=== PATIENT | male | born 1995 | race Two or more races ===

== ENCOUNTER 2023-05-19 14:03 | Outpatient (REF) | payer OTHER, SELFPAY ==
[2023-05-19 18:46] LABS: CT PCR NOT DETECTED (Not Detect.); NG PCR NOT DETECTED (Not Detect.)
== END 2023-05-19 14:04 | disposition home or self-care (01) ==
LOC: HO.LNP 14:03
PROVIDERS: Visit Provider Urology
DX: N50.812 Left testicular pain (principal); N50.811 Right testicular pain; M54.50 Low back pain, unspecified; N45.1 Epididymitis; N39.8 Other specified disorders of urinary system; Z79.899 Other long term (current) drug therapy
CPT/HCPCS: 0353U; 51798; 81003

== ENCOUNTER 2023-05-19 14:03 | Outpatient (AMB) | payer OTHER, SELFPAY ==
--- NOTE | 2023-05-19 14:04 | A.OFFVIS_ITS ---
Intake Intake Visit Reasons: Epididymitis Intake Note: NEW Patient presents today to established treatment for Epididymitis: Meds- None Allergies to Antibiotic- No Known Allergies Blood Thinner- None Biomedical Equipment Technician Required: No Accompanied by: Self / Same As Patient Allergies No Known Allergies Allergy (Verified 05/19/23 14:19) Medication List - Last Reconciled 05/19/23 by Rosario Mensah MD acetaminophen mg PO doxycycline hyclate 100 mg PO BID 14 days naproxen 375 mg PO BID HPI HPI Comments History of Present Illness Details Chris is a 28-year-old male who presents today to the office to establish as a new patient for an evaluation of epididymitis. 05/19/2023? He presents today for an evaluation of epididymitis. He states he ishaving pain in the both testicles, and low back pain. He denies any hematuria. He feels like he has the urge to urinate. He is sexually active. The Patient was seen on 03/28 by [facility] for testicular and back pain. He was sent home on cyclobenzaprine 10 mg, and Nortriptyline 50 mg, and instructed to use Tylenol prn and was referred to the urology office for further evaluation. In review of his chart, it was noted that he was seen in ER in 2019, and had a CAT scan of the spine noting- L-5 to S-1 disc disease. US of the scrotum results from 11/20/2022 noted that both the testicles are normal, with normal flow, and some diffused increase in vascularity noted in both the testicles consistent with bilateral epididymitis. Evaluation today?UA? bladder scan PVR: 55 mL. Examination of the testicles: tenderness on palpation of both the testicles, and no swelling noted. Plan: Doxycycline 10 mg BID for 14 days. Naproxen 375 BID. No heavy lifting for 7 days over 50 kg. Follow-up in 6-8 weeks. [facility] Medical History (Updated 05/19/23 @ 14:51 by Rosario Mensah MD) Hepatic cyst Asthma Acne Abdominal pain Surgical History (Updated 05/19/23 @ 14:26 by TRISTIN Simmons) No pertinent past surgical history Family History (Updated 05/19/23 @ 14:26 by TRISTIN Simmons) Father Diabetes Mother HTN (hypertension) Social History (Updated 05/19/23 @ 14:26 by TRISTIN Simmons) Alcohol intake: current Alcohol intake frequency: does not drink Patient Tobacco Use Status: Never used Tobacco Review of Systems Const All systems reviewed & are unremarkable except as noted in HPI and below Reports no additional complaints Eyes Reports no additional complaints ENT Reports no additional complaints Card Denies dyspnea Resp Denies cough and Denies dyspnea GI Reports no additional complaints Musc Reports no additional complaints Skin/Breast Denies rash and Denies unusual bruising Neuro Reports no additional complaints Psych Reports no additional complaints Endo Reports no additional complaints Syd/Lymph Reports no additional complaints Aller/Immun Reports no additional complaints Physical Exam Const General: healthy appearing, no acute distress and well developed Orientation/consciousness: patient oriented x3 HEENT Head: Yes normocephalic and Yes atraumatic Eyes Conjunctivae: conjunctivae normal Neck Neck: Yes normal visual inspection Chest Chest palpation & inspection: normal inspection of the chest Resp Effort & Inspection: normal respiratory effort Cardio Rate: regular rate GI Inspection: Yes normal to inspection Palpation (GI): Soft to palpation Other: tenderness on palpation of both the testicles, and no swelling noted. Penis: normal penis Scrotum: scrotum normal Skin General skin exam: no rashes or lesions noted Neuro General: patient oriented x3 Extrem General: No pedal edema Psych Appearance: grossly normal Affect: normal affect Office Procedures Post Void Residual Post Residual Void Post Void Residual (PVR): 55 [id number] Void Residual by ultrasound Results AMB Urinalysis, Automated UA Leukoctes 0 Debbie/uL Last Edit by TRISTIN Simmons on 05/19/23 14:30 UA Nitrite Negative Last Edit by TRISTIN Simmons on 05/19/23 14:30 UA Urobilinogen 0 mg/dL Last Edit by TRISTIN Simmons on 05/19/23 14:30 UA Protein 0.2 mg/dL Last Edit by TRISTIN Simmons on 05/19/23 14:30 UA pH 0 Last Edit by JOSE E SimmonsA on 05/19/23 14:30 UA Blood 6.0 Juan Miguel/uL Last Edit by Gus Lizarraga RMA on 05/19/23 14:30 UA Specific [place] 1.030 Last Edit by Gus Lizarraga RMA on 05/19/23 14: 30 UA Ketone Negative Last Edit by Gus Lizarraga RMA on 05/19/23 14:30 UA Bilirubin 0 mg/dL Last Edit by Gus Lizarraga RMA on 05/19/23 14:30 UA Glucose 0 mg/dL Last Edit by Gus Lizarraga A on 05/19/23 14:30 Results Reviewed Results Reviewed: Laboratory Last Values Urine pH (Auto) 0 05/19/23 14:29 Specific [place] (Auto) 1.030 05/19/23 14:29 Urine Protein (Auto) 0.2 mg/dL 05/19/23 14:29 Glucose (UA)(Auto) 0 mg/dL 05/19/23 14:29 Urine Ketones (Auto) Negative 05/19/23 14:29 Urine Blood (Auto) 6.0 Juan Miguel/uL 05/19/23 14:29 Urine Nitrite (Auto) Negative 05/19/23 14:29 Urine Bilirubin (Auto) 0 mg/dL 05/19/23 14:29 Urine Urobilinogen (Auto) 0 mg/dL 05/19/23 14:29 Leukocyte Esterase (Auto) 0 Debbie/uL 05/19/23 14:29 Assessment & Plan Assessment & Plan (1) Epididymitis: Code(s): N45.1 - Epididymitis (2) Testicular pain: Code(s): N50.819 - Testicular pain, unspecified Plan Doxycycline? 10 mg BID for 14 days. Naproxen? 375 BID. No heavy lifting for 7 days over 50 kg. Follow-up in 6-8 weeks.? Orders: Orders CT NG by PCR 05/19/23 N45.1 - Epididymitis, N50.819 - Testicular pain, unspecified AMB Urinalysis Automated 05/19/23 Z13.9 - Encounter for screening, unspecified AMB Post Void Residual by ultrasound 05/19/23 N39.8 - Other specified disorders of urinary system Medications: New doxycycline hyclate 100 mg PO BID 28 tabs 0RF 14 days naproxen 375 mg PO BID 20 tabs 0RF pain Patient Instructions: The patient had an opportunity to ask questions regarding treatment plan. All questions were answered. Imaging, Laboratory studies and physical exam results were discussed and reviewed in detail. No major barriers to understanding were identified. The patient expressed understanding and agreement with the above treatment plan.? ? ? The patient is aware they should contact our office by phone for worsening of their current condition or the appearance of new symptoms. Compliance is encouraged with any medications and followup testing that is ordered.? ? ? It is a privilege to be allowed the opportunity to participate in the urologic care of your patient. If you have any questions or concerns regarding treatment for the above conditions please do not hesitate to contact me. The office telephone contact is [phone].? ? ? This note is constructed in part using voice recognition software. While every effort has been made to ensure accuracy bomb squad officer errors may have been included.? ? ? Yours sincerely,? ? ? Rosario Mensah MD? Coding Level of Care Code New Pt Level 3 (80020) Diagnoses Epididymitis N45.1 Testicular pain N50.819 CPT Codes Post Residual Void - PVR CPT Code: 74180-[id number] Void Residual by ultrasound ([id number])
== END 2023-05-19 15:03 | disposition home or self-care (01) ==
PROVIDERS: Visit Provider Urology
DX: N45.1 Epididymitis (principal); N50.819 Testicular pain, unspecified
CPT/HCPCS: 99203

== ENCOUNTER 2023-06-14 11:40 | Outpatient (REF) | payer OTHER, SELFPAY ==
--- NOTE | ~2023-06-14 | US_ITS ---
EXAMINATION: US SCROTUM CLINICAL INFORMATION: Testicular pain. COMPARISON: None available. TECHNIQUE: A sonogram of the scrotum was performed assessing macias-scale appearance and color Doppler flow. Spectral Doppler analysis of the arterial and venous flow were performed in the testes bilaterally. FINDINGS: RIGHT: Right testicle measures 5.3 x 2.0 x 3.5 cm, volume 19.5 mL. No focal testicular parenchymal lesions are visualized. Spectral Doppler analysis of the arterial and venous flow is normal in the right testis. Right epididymal head is normal in size. No right hydrocele or varicocele is seen. Right epididymal Doppler flow is normal. LEFT: Left testicle measures 4.7 x 2.2 x 3.3 cm, volume 17.8 mL. No focal testicular parenchymal lesions are visualized. Spectral Doppler analysis of the arterial and venous flow is normal in the left testis. Left epididymal head is normal in size. No left hydrocele. A tiny left varicocele is present. Left epididymal Doppler flow is normal. US/US scrotum IMPRESSION: A cause for the patient's testicular pain has not been found. A tiny left varicocele is present.
== END 2023-06-14 11:41 | disposition home or self-care (01) ==
LOC: HO.HMGCX 11:40
PROVIDERS: Visit Provider Urology
DX: N50.819 Testicular pain, unspecified (principal)
CPT/HCPCS: 76870

== ENCOUNTER 2023-10-09 15:45 | Outpatient (AMB) | payer OTHER, SELFPAY ==
--- NOTE | 2023-10-09 15:48 | A.OFFVIS_ITS ---
Intake Intake Visit Reasons: Having urine problems and lump on my groin Intake Note: Patient presents today for a follow-up on Epididymitis, having urinary problems and a groin pain : Meds- None Allergies to Antibiotic- No Known Allergies Blood Thinner- None Area Captain Required: No Accompanied by: Self / Same As Patient Allergies No Known Allergies Allergy (Verified 05/19/23 14:19) Medication List - Last Reconciled 10/09/23 by Rosario Mensah MD acetaminophen mg PO HPI HPI Comments History of Present Illness Details Chris is a 28-year-old male who presents today with urinary concerns, he was initially seen on 05/19/23 for an evaluation of epididymitis and placed on doxycycline for 14 days. He states he no longer is working at the job where he had to lift. I have discussed with him that urinalysis is normal. Reassured the patient no evidence for infection. I have discussed avoiding dietary bladder irritants. 05/19/2023? He presents today for an evaluation of epididymitis. He states he ishaving pain in the both testicles, and low back pain. He denies any hematuria. He feels like he has the urge to urinate. He is sexually active. The Patient was seen on 04/06/2023 by [facility] for testicular and back pain. He was sent home on cyclobenzaprine 10 mg, and Nortriptyline 50 mg, and in structed to use Tylenol prn and was referred to the urology office for further evaluation. In review of his chart, it was noted that he was seen in ER in 2019, and had a CAT scan of the spine noting- L-5 to S-1 disc disease. US of the scrotum results from 11/20/2022 noted that both the testicles are normal, with normal flow, and some diffused increase in vascularity noted in both the testicles consistent with bilateral epididymitis. Evaluation today?UA? bladder scan PVR: 55 mL. Examination of the testicles: tenderness on palpation of both the testicles, and no swelling noted. Plan--Doxycycline 10 mg BID for 14 days. Naproxen 375 BID. No heavy lifting for 7 days over 50 kg. Follow-up in 6-8 weeks. [facility] Medical History (Updated 11/28/23 @ 09:12 by Rosario Mensah MD) Hepatic cyst Asthma Acne Abdominal pain Surgical History (Updated 05/19/23 @ 14:26 by TRISTIN Simmons) No pertinent past surgical history Family History (Updated 05/19/23 @ 14:26 by TRISTIN Simmons) Father Diabetes Mother HTN (hypertension) Social History (Updated 05/19/23 @ 14:26 by TRISTIN Simmons) Alcohol intake: current Alcohol intake frequency: does not drink Patient Tobacco Use Status: Never used Tobacco Review of Systems Const All systems reviewed & are unremarkable except as noted in HPI and below Reports no additional complaints Eyes Reports no additional complaints ENT Reports no additional complaints Card Reports no additional complaints Resp Reports no additional complaints GI Reports no additional complaints Reports as per HPI Musc Reports no additional complaints Skin/Breast Reports system reviewed and no additional complaints, except as documented Neuro Reports no additional complaints Psych Reports no additional complaints Endo Reports no additional complaints Syd/Lymph Reports no additional complaints Aller/Immun Reports no additional complaints Results AMB Urinalysis, Automated UA Leukoctes 0 Debbie/uL Last Edit by TRISTIN Simmons on 10/09/23 16:10 UA Nitrite Negative Last Edit by TRISTIN Simmons on 10/09/23 16:10 UA Urobilinogen 0.2 mg/dL Last Edit by TRISTIN Simmons on 10/09/23 16:1 0 UA Protein 15 mg/dL Last Edit by TRISTIN Simmons on 10/09/23 16:10 UA pH 6.0 Last Edit by TRISTIN Simmons on 10/09/23 16:10 UA Blood 0 Juan Miguel/uL Last Edit by TRISTIN Simmons on 10/09/23 16:10 UA Specific [place] 1.020 Last Edit by TRISTIN Simmons on 10/09/23 16: 10 UA Ketone Negative Last Edit by TRISTIN Simmons on 10/09/23 16:10 UA Bilirubin 1 mg/dL Last Edit by TRISTIN Simmons on 10/09/23 16:10 UA Glucose 0 mg/dL Last Edit by TRISTIN Simmons on 10/09/23 16:10 Results Reviewed Results Reviewed: Laboratory Last Values Urine pH (Auto) 6.0 10/09/23 15:54 Specific [place] (Auto) 1.020 10/09/23 15:54 Urine Protein (Auto) 15 mg/dL 10/09/23 15:54 Glucose (UA)(Auto) 0 mg/dL 10/09/23 15:54 Urine Ketones (Auto) Negative 10/09/23 15:54 Urine Blood (Auto) 0 Juan Miguel/uL 10/09/23 15:54 Urine Nitrite (Auto) Negative 10/09/23 15:54 Urine Bilirubin (Auto) 1 mg/dL 10/09/23 15:54 Urine Urobilinogen (Auto) 0.2 mg/dL 10/09/23 15:54 Leukocyte Esterase (Auto) 0 Debbie/uL 10/09/23 15:54 Assessment & Plan Assessment & Plan (1) Chronic pain in testicle: Code(s): N50.819 - Testicular pain, unspecified; G89.29 - Other chronic pain Plan tylenol or NSAIDS prn Orders: Orders AMB Urinalysis Automated 10/09/23 Z13.9 - Encounter for screening, unspecified Coding Level of Care Code Est Pt Level 3 (96603) Diagnoses Chronic pain in testicle N50.819; G89.29
== END 2023-10-09 16:34 | disposition home or self-care (01) ==
PROVIDERS: Visit Provider Urology
DX: N50.819 Testicular pain, unspecified (principal); G89.29 Other chronic pain
CPT/HCPCS: 99213

== ENCOUNTER → 2023-10-09 15:45 | Outpatient (BNVA) | payer OTHER, SELFPAY | PROVIDERS: Visit Provider Urology | DX: N50.819 Testicular pain, unspecified (principal); G89.29 Other chronic pain | CPT/HCPCS: 81003; 99212 ==

== ENCOUNTER 2024-06-05 13:21 | Outpatient (AMB) | payer OTHER, SELFPAY ==
--- NOTE | 2024-06-05 13:17 | A.OFFVIS_ITS ---
Intake Visit Reasons: follow up Intake Note: Patient is present for F/U Urology Medication:NONE Antibiotic Allergy:NONE Blood Thinner:NONE [employer] Required: No Allergies No Known Allergies Allergy (Verified 06/05/24 13:17) Medication List - Last Reconciled 06/05/24 by Rosario Mensah MD acetaminophen mg PO clotrimazole-betamethasone 1-0.05 % 1 appl topical BID 2 weeks fluconazole 150 mg PO ONCE HPI Comments Details: 06/05/2024--Kalyani has been seen due to chronic testicular pain. He currently denies testicular pain, but states that he has noticed some itching around the top of the penis. I will send an antifungal cream as well as Diflucan. The pat ient will call if symptoms do not improve. Review of chart: 10/09/23--Chris is a 28-year-old male who presents today with urinary concerns, he was initially seen on 05/19/23 for an evaluation of epididymitis and placed on doxycycline for 14 days. He states he no longer is working at the job where he had to lift. I have discussed with him that urinalysis is normal. Reassured the patient no evidence for infection. I have discussed avoiding dietary bladder irritants. 05/19/2023? He presents today for an evaluation of epididymitis. He states he ishaving pain in the both testicles, and low back pain. He denies any hematuria. He feels like he has the urge to urinate. He is sexually active. The Patient was seen on 04/06/2023 by [facility] for testicular and back pain. He was sent home on cyclobenzaprine 10 mg, and Nortriptyline 50 mg, and instructed to use Tylenol prn and was referred to the urology office for further evaluation. In review of his chart, it was noted that he was seen in ER in 2019, and had a CAT scan of the spine noting- L-5 to S-1 disc disease. US of the scrotum results from 11/20/2022 noted that both the testicles are normal, with normal flow, and some diffused increase in vascularity noted in both the testicles consistent with bilateral epididymitis. Evaluation today?UA? bladder scan PVR: 55 mL. Examination of the testicles: tenderness on palpation of both the testicles, and no swelling noted. Plan--Doxycycline 10 mg BID for 14 days. Naproxen 375 BID. No heavy lifting for 7 days over 50 kg. Follow-up in 6-8 weeks. [facility] Medical History (Updated 07/01/24 @ 11:31 by Rosario Mensah MD) Hepatic cyst Asthma Acne Abdominal pain Surgical History (Updated 05/19/23 @ 14:26 by TRISTIN Simmons) No pertinent past surgical history Family History (Updated 05/19/23 @ 14:26 by TRISTIN Simmons) Father Diabetes Mother HTN (hypertension) Social History (Updated 05/19/23 @ 14:26 by TRISTIN Simmons) Alcohol intake: current Alcohol intake frequency: does not drink Patient Tobacco Use Status: Never used Tobacco Telehealth Telehealth Telehealth Platform: Kynded Location of provider rendering services: practice address Location of patient: address on file Patient Identification confirmed using: Name, : Yes Telehealth method: voice only Patient verbally consented to treatment: Yes Patient verbally consented to billing insurance company: Yes Patient informed of any privacy concerns related to visit: Yes Minutes spent on Phone/Video with Pt.: 18 Assessment & Plan Assessment & Plan (1) Chronic pain in testicle: Code(s): N50.819 - Testicular pain, unspecified; G89.29 - Other chronic pain Category: Medical (2) Balanitis: Code(s): N48.1 - Balanitis Category: Medical Plan lotrisone cream Medications: New fluconazole 150 mg PO ONCE 1 tab 0RF clotrimazole-betamethasone 1-0.05 % 1 appl topical BID 45 grams 1RF 2 weeks Patient Instructions: The patient had an opportunity to ask questions regarding treatment plan. The patient expressed understanding and agreement with the above treatment plan. The patient is aware they should contact our office by phone for worsening of their current condition or the appearance of new symptoms. Compliance is encouraged with any medications and followup testing that is ordered. It is a privilege to be allowed the opportunity to participate in the urologic care of your patient. If you have any questions or concerns regarding treatment for the above conditions please do not hesitate to contact me. The office telephone contact is [phone]. This note is constructed in part using voice recognition software. While every effort has been made to ensure accuracy high school home economics teacher errors may have been included. Yours sincerely, Rosario Mensah MD Coding Level of Care Code Tele New Pt Level 3 (52455) Diagnoses Chronic pain in testicle N50.819; G89.29 Balanitis N48.1
--- OUTSIDE RECORDS SUMMARY | 2024-06-05 13:23 | XMS_ITS | Continuity of Care Document ---
Author Organization [facility] ter Address [address] [place] [id number]- Care Team Providers Care Supreme Court Judge Name Role Phone Zuri Velázquez MD Primary Care Physician Encounter [facility] Date(s): 05/02/23 - 06/02/[address] [id number] Attending Physician: Kanu WONG, Celina Choi Admitting Physician: Kanu WONG, Celina Choi Referring Physician: Kanu WONG, Celina Choi Allergies, Adverse Reactions, Alerts No Known Allergies Immunizations Given and Recorded Vaccine Date Status Refusal Reason influenza virus vaccine, inactivated 06/08/20 Give n influenza virus vaccine, inactivated 11/01/19 Give n influenza virus vaccine, inactivated 07/13/17 Give n influenza virus vaccine, inactivated 09/24/13 Give n tetanus/diphtheria/pertussis, acel(Tdap) 02/07/18 Given influenza virus vaccine, live 1 07/27/12 Given 1Admin Note: VIS DATED 02/27/2012 GIVEN. Medications capsaicin 0.025% topical cream 1 application, Topically, 2 times a day, # 45 Gm, 5 Refills, Maintenance, 04/10/23 16:04:00 EDT, Cream, [facility]/pharmacy #[id number], Partial fill upon patient request if the prescription is for a schedule II opioid drug., 1 application Topically 2 times a day,... Start Date: 04/10/23 Status: Ordered nortriptyline 50 mg oral capsule 50 mg, 1, capsule, By Mouth, Daily at bedtime, dose increased, take daily for migraine prevention, # 90 capsule, Refills 1, Tot. Refills 1, Maintenance, 04/04/23 15:00:00 EDT, Route to Pharmacy Electronically, [facility]/pharmacy #[id number], Partial fill upon pat... Start Date: 04/04/23 Status: Ordered Readi-Cat 2 oral suspension 450 mL = 9 Gm, By Mouth, 2 times a day, Please dispense two 450 mL bottles for a total dose that equals 900 mLs. Drink first bottle [address] and then drink second bottle [address] scan,# 2 each, 0 Refills, Maintenance, 01/04/23 13:08:00... Start Date: 01/04/23 Status: Ordered Problem List Condition Confirmation Course Effective Dates Status Health St [facility] Informant Abdominal pain Confirmed Active Acne Confirmed Active Asthma Confirmed Active Epididymitis Confirmed Active Intermittent Explosive Disorder 1 Confirmed Active Irritable bowel Confirmed Active Hepatic cyst, right lobe 2 Confirmed 01/27/14 Active Migraine Confirmed Active Obese class I Confirmed Active 1[facility] 2Measures 2.4 x 1.9 x 1.7 cm and contains peripheral calcification along its posterior medial aspect Social History Social History Type Response Smoking Status Former smoker, quit more than 30 days ago entered on: 09/21/18 Sex Patient Care team information Care Team Personnel Name: Zuri Velázquez MD Position: [facility] Resident Member Role: PCP Address: Address: [address] [place] [address] [place] [address]- Care Team Related Persons Name: NADER CHAVEZ Address: [address] [place] [address] Name: DIONTE HARRELL Address: [address] [place] [address] Name: KRISHNA PA Address: home [address] [place] [address]
--- OUTSIDE RECORDS SUMMARY | 2024-06-05 13:23 | XMS_ITS | Continuity of Care Document ---
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 Role Phone Zuri Velázquez MD Primary Care Physician [facility]counter [facility] Date(s): 10/24/22 - 11/23/22 [facility] [address] [place] [id number] Allergies, Adverse Reactions, Alerts No Known Allergies Immunizations Given and Recorded Vaccine Date Status Refusal Reason influenza virus vaccine, inactivated 06/08/20 Give n influenza virus vaccine, inactivated 11/01/19 Give n influenza virus vaccine, inactivated 07/13/17 Give n influenza virus vaccine, inactivated 09/24/13 Give n tetanus/diphtheria/pertussis, acel(Tdap) 02/07/18 Given influenza virus vaccine, live 1 07/27/12 Given 1Admin Note: VIS DATED 02/27/2012 GIVEN. Medications carvedilol 6.25 mg oral tablet 6.25 mg, 1, tablet, By Mouth, 2 times a day, # 60 tablet, Refills 1, Tot. Refills 1, Maintenance, 10/17/22 9:48:00 EST, Route to Pharmacy Electronically, [facility]/pharmacy #[id number], Partial fill upon patientrequest if the prescription is for a schedule II op... Start Date: 10/17/22 Status: Ordered ceftriaxone 500 mg injectable powder for injection = 500 mg, Intramuscular, Once, # 1 each, 0 Refills, Soft Stop, 11/01/22 6:03:00 EST, Partial fill upon patient request if the prescription is for a schedule II opioid drug. Start Date: 11/01/22 Status: Ordered clindamycin 1% topical solution 1 application, Topically, 2 times a day, # 60 mL, 1 Refills, Maintenance, 10/17/22 9:33:00 EST, Solution, [facility]/pharmacy #[id number], Partial fill upon patient request if the prescription is for a schedule II opioid drug., 1 application Topically 2 times a da... Start Date: 10/17/22 Stop Date: 11/14/22 Status: Ordered famotidine 20 mg oral tablet 20 mg, 1, tablet, By Mouth, 2 times a day, # 28 tablet, Refills 0, Tot. Refills 0, Maintenance, 09/10/21 7:39:00 EST, Route to Pharmacy Electronically, [facility]/pharmacy #[id number], Partial fill upon patient request if the prescription is for a schedule II opio... Start Date: 09/10/21 Stop Date: 09/24/21 Status: Ordered nortriptyline 10 mg oral capsule 10 mg, 1, capsule, By Mouth, Daily at bedtime, # 30 capsule, Refills 1, Tot. Refills 1, Maintenance, 10/17/22 9:25:00 EST, Route to Pharmacy Electronically, [facility]/pharmacy #[id number], Partial fill upon patient request if the prescription is for a schedule II... Start Date: 10/17/22 Status: Ordered Wedge Pillow Wedge Pillow, See Instructions, # 1 each, Refills 0, Tot. Refills 0, Maintenance, Dx: Sleep Disturbance, at risk of CIERRA, 10/17/22 9:25:00 EST, Supply Start Date: 10/17/22 Status: Ordered Problem List Condition Confirmation Course Effective Dates Status Health St atus Informant Abdominal pain Confirmed Active Acne Confirmed Active Asthma Confirmed Active Intermittent Explosive Disorder 1 Confirmed Active Irritable bowel Confirmed Active Hepatic cyst, right lobe 2 Confirmed 01/27/14 Active Obese class I Confirmed Active 1[facility] 2Measures 2.4 x 1.9 x 1.7 cm and contains peripheral calcification along its posterior medial aspect Social History Social History Type Response Smoking Status Former smoker, quit more than 30 days ago entered on: 09/21/18 Sex Patient Care team information Care Team Personnel Name: Zuri Velázquez MD Position: S Resident Member Role: PCP Address: Address: [address] [place] [address] [place] [address]- Care Team Related Persons Name: NADER CHAVEZ Address: home [address] [place] [address] Name: DIONTE HARRELL Address: home [address] [place] [address] Name: KRISHNA PA Address: home [address] [place] [address]
--- OUTSIDE RECORDS SUMMARY | 2024-06-05 13:23 | XMS_ITS | Continuity of Care Document ---
Author Organization [facility] Address [address] [place] [address]- Care Team Providers Care Casting Director Name Role Phone Zuri Velázquez MD Primary Care Physician [phone] Encounter [facility] [place] Date(s): 06/21/23 - 07/26/[address] [address] Attending Physician: Kadie Vasquez NP Admitting Physician: Kadie Vasquez NP Referring Physician: Kadie Vasquez NP Allergies, Adverse Reactions, Alerts No Known Allergies Immunizations Given and Recorded Vaccine Date Status Refusal Reason influenza virus vaccine, inactivated 06/08/20 Give n influenza virus vaccine, inactivated 11/01/19 Give n influenza virus vaccine, inactivated 07/13/17 Give n influenza virus vaccine, inactivated 09/24/13 Give n tetanus/diphtheria/pertussis, acel(Tdap) 02/07/18 Given influenza virus vaccine, live 1 07/27/12 Given 1Admin Note: VIS DATED 02/27/2012 GIVEN. Medications azithromycin 500 mg oral tablet 1 tablet = 500 mg, By Mouth, Daily, # 3 tablet, 0 Refills, Acute 08/20/23 8:59:00 EST, 07/21/23 15:51:00 EST, Tablet, [facility]/pharmacy #[id number], Partial fill upon patient request if the prescription is for a schedule II opioid drug., 173, cm, 07/21/23 14:13:... Start Date: 07/21/23 Stop Date: 08/20/23 Status: Ordered capsaicin 0.025% topical cream 1 application, Topically, 2 times a day, # 45 Gm, 5 Refills, Maintenance, 04/10/23 16:04:00 EDT, Cream, [id number], Partial fill upon patient request if the prescription is for a schedule II opioid drug., 1 application Topically 2 times a day,... Start Date: 04/10/23 Status: Ordered ipratropium nasal 21 mcg/inh spray See Instructions, PRN Nasal Congestion, 1 spray each nostril BID, # 1 each, 4 Refills, Maintenance,06/06/23 13:45:00 EDT, [facility]/pharmacy #[id number], Partial fill upon patient request if the prescription isfor a schedule II opioid drug., 1 spray each nostri... Start Date: 06/06/23 Status: Ordered meloxicam 7.5 mg oral tablet 1 tablet = 7.5 mg, By Mouth, Daily, prn pain, take with food, # 30 tablet, 1 Refills, Maintenance, 06/13/23 16:51:00 EDT, Tablet, [facility]/pharmacy #[id number], Partial fill upon patient request if the prescription is for a schedule II opioid drug., 173, cm, 10/... Start Date: 06/13/23 Status: Ordered nortriptyline 50 mg oral capsule 50 mg, 1, capsule, By Mouth, Daily at bedtime, dose increased, take daily for migraine prevention, # 90 capsule, Refills 1, Tot. Refills 1, Maintenance, 04/04/23 15:00:00 EDT, Route to Pharmacy Electronically, [facility]/pharmacy #[id number], Partial fill upon pat... Start Date: 04/04/23 Status: Ordered Sequoyah 0.65% nasal spray 2 sprays, Nares, Both, 4 times a day, # 1 each, 5 Refills, Maintenance, 06/13/23 16:48:00 EDT, [facility]/pharmacy #[id number], Partial fill upon patient request if the prescription is for a schedule II opioid drug., 2 sprays Nares, Both 4 times a day, 173, cm, 10... Start Date: 06/13/23 Status: Ordered pantoprazole 40 mg oral delayed release tablet 1 tablet = 40 mg, By Mouth, Daily, Take 30-60 mins before breakfast, # 30 tablet, 2 Refills, Maintenance, 07/21/23 15:48:00 EST, EC Tablet, 173, cm, 07/21/23 14:13:00 EST, Height Start Date: 07/21/23 Status: Ordered propranolol 60 mg oral capsule, extended release 60 mg, 1, capsule, By Mouth, Daily, # 30 capsule, Refills 5, Tot. Refills 5, Maintenance, 06/13/23 16:46:00 EDT, Route to Pharmacy Electronically, [facility]/pharmacy #[id number], Partial fill upon patient request if the prescription is for a schedule II opioid Start Date: 06/13/23 Status: Ordered Readi-Cat 2 oral suspension 450 mL = 9 Gm, By Mouth, 2 times a day, Please dispense two 450 mL bottles for a total dose that equals 900 mLs. Drink first bottle [address] and then drink second bottle [address] scan,# 2 each, 0 Refills, Maintenance, 01/04/23 13:08:00... Start Date: 01/04/23 Status: Ordered Symbicort 80mcg/4.5mcg Inhaler 2, puffs, Inhalation, 2 times a day, # 10.2 Gm, Refills 2, Tot. Refills 2, Maintenance, 07/21/23 15:49:00 EST, Aerosol, Route to Pharmacy Electronically, [id number], [facility]/pharmacy #[id number], 173, cm, 07/21/23 14:13:00 EST, Height Start Date: 07/21/23 Status: Ordered Problem List Condition Confirmation Course Effective Dates Status Health St atus Informant Abdominal pain Confirmed Active Acne Confirmed Active Asthma Confirmed Active Epididymitis Confirmed Active HTN (hypertension) Confirmed Active Intermittent Explosive Disorder 1 Confirmed [...] S Resident Member Role: PCP Address: Address: [address] [place] [address] [place] [address]- Care Team Related Persons Name: NADER CHAVEZ Address: home [address] [place] [address] Name: DIONTE HARRELL Address: home [address] [place] [address] Name: KRISHNA PA Address: home [address] [place] [address]
--- OUTSIDE RECORDS SUMMARY | 2024-06-05 13:23 | XMS_ITS | Continuity of Care Document ---
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 Role Phone Sanjana KAHN, Natalee Rolon Primary Care Physic brian [facility]counter [facility] Date(s): 05/17/21 - 06/16/21 [facility] [address] [place] [id number]- Allergies, Adverse Reactions, Alerts Substance Reaction Severity Status NKA Active Immunizations Given and Recorded Vaccine Date Status Refusal Reason influenza virus vaccine, inactivated 06/08/20 Give n influenza virus vaccine, inactivated 11/01/19 Give n influenza virus vaccine, inactivated 07/13/17 Give n influenza virus vaccine, inactivated 09/24/13 Give n tetanus/diphtheria/pertussis, acel(Tdap) 02/07/18 Given influenza virus vaccine, live 1 07/27/12 Given 1Admin Note: VIS DATED 02/27/2012 GIVEN. Medications albuterol CFC free 90 mcg/inh inhalation aerosol 2, puffs, Inhalation, Every 4 hours, PRN, # 1 each, Refills 0, Tot. Refills 0, Maintenance, 06/20/19 12:58:17 EDT, Aerosol, Route to Pharmacy Electronically, [id number], [facility]/pharmacy #[id number] Start Date: 06/20/19 Stop Date: 06/27/19 Status: Ordered amLODIPine 5 mg oral tablet 5 mg, 1, tablet, By Mouth, Daily, # 30 tablet, Refills 3, Tot. Refills 3, Maintenance, 07/16/20 13:50:00 EST, Route to Pharmacy Electronically, [facility]/pharmacy #[id number], Partial fill upon patient request, 173, cm, 06/08/20 10:54:00 EDT, Height, 97, kg, 08... Start Date: 07/16/20 Status: Ordered Blood Pressure Monitor Blood Pressure Monitor, See Instructions, # 1 each, Refills 0, Tot. Refills 0, Maintenance, Blood Pressure Monitor Check blood pressure once a day at least one hour after taking medications [id number] PO TID Dx: I15.9 Duration: Lifetime, 11/11... Start Date: 11/11/20 Status: Ordered Colace sodium 100 mg oral capsule 100 mg, 1, capsule, By Mouth, 2 times a day, PRN, # 180 capsule, Refills 0, Tot. Refills 0, Maintenance, for constipation, 07/16/20 15:56:00 EST, Route to Pharmacy Electronically, [facility]/pharmacy #[id number],Partial fill upon patient request, 173, cm, ... Start Date: 07/16/20 Status: Ordered dicyclomine 10 mg oral capsule 1 capsule = 10 mg, By Mouth, 4 times a day, # 56 capsule, 1 Refills, Maintenance, 11/03/20 13:15:00EST, Capsule, [facility]/pharmacy #[id number], Partial fill upon patient request, 173, cm, 11/03/20 12:57:00 EST, Height, 97, kg, 03/29/20 18:07:00 EDT, Dry Weight Start Date: 11/03/20 Stop Date: 12/01/20 Status: Ordered famotidine 20 mg oral tablet 20 mg, 1, tablet, By Mouth, Daily, # 90 tablet, Refills 11, Tot. Refills 11, Maintenance, 10/28/20 14:31:00 EST, Route to Pharmacy Electronically, [facility]/pharmacy #[id number], 173, cm, 10/28/20 13:50:00 EST, Height, 97, kg, 03/29/20 18:07:00 EDT, Dry Weight Start Date: 10/28/20 Stop Date: 10/13/23 Status: Ordered MiraLax oral powder for reconstitution = 17 Gm, By Mouth, Daily, dissolve in water before taking, # 1,530 Gm, 0 Refills, Maintenance, 07/16/20 13:50:00 EST, REC Powder, [facility]/pharmacy #[id number], Partial fill upon patient request, 17 Gm By MouthDaily,Instr:dissolve in water before taking, 173, c... Start Date: 07/16/20 Status: Ordered ondansetron 4 mg oral tablet, disintegrating 1 tablet = 4 mg, By Mouth, Every 8 hours, PRN as needed for nausea/vomiting, # 9 tablet, 0 Refills,Maintenance, 11/03/20 13:15:00 EST, DIS Tablet, [facility]/pharmacy #[id number], 173, cm, 11/03/20 12:57:00 EST,Height, 97, kg, 03/29/20 18:07:00 EDT, Dry Weight Start Date: 11/03/20 Stop Date: 11/06/20 Status: Ordered verapamil 40 mg oral tablet 1 tablet = 40 mg, By Mouth, 3 times a day, # 90 tablet, 1 Refills, Maintenance, 11/05/20 17:59:00 EST, Tablet, [facility]/pharmacy #[id number], Partial fill upon patient request if the prescription is for a schedule II opioid drug., 173, cm, 11/05/20 17:02:00 EST,... Start Date: 11/05/20 Status: Ordered Problem List Condition Effective Dates Status Health Status Inform ant Abdominal pain(Confirmed) Active Acne(Confirmed) Active Asthma(Confirmed) Active Intermittent Explosive Disorder(Confirmed) 1 Active Irritable bowel(Confirmed) Active Hepatic cyst, right lobe(Confirmed) 2 01/27/14 Active 1[facility] 2Measures 2.4 x 1.9 x 1.7 cm and contains peripheral calcification along its posterior medial aspect Social History Social History Type Response Smoking Status Former smoker, quit more than 30 days ago entered on: 09/21/18 Sex
--- OUTSIDE RECORDS SUMMARY | 2024-06-05 13:23 | XMS_ITS | Continuity of Care Document ---
Author Organization [facility] Address [address] [place] [address]- Care Team Providers Care Surgical Scrub Technologist Name Role Phone Zuri Velázquez MD Primary Care Physician Encounter [facility] [place] Date(s): 03/24/23 - 04/23/23 [facility] [address] [place], [place] [address] Allergies, Adverse Reactions, Alerts No [...] 5 Refills, Maintenance, 04/10/23 16:04:00 EDT, Cream, [facility]/pharmacy #[id number], Partial fill upon patient request if the prescription is for a schedule II opioid drug., 1 application Topically 2 times a day,... Start Date: 04/10/23 Status: Ordered cyclobenzaprine 10 mg oral tablet 10 mg, 1, tablet, By Mouth, 3 times a day, PRN, # 42 tablet, Refills 0, Tot. Refills 0, Acute 04/26/23 15:03:00 EDT, Spasm for spasm, 04/04/23 15:03:00 EDT, Route to Pharmacy Electronically, [facility]/pharmacy #[id number], Partial fill upon patient request if t... Start Date: 04/04/23 Stop Date: 04/26/23 Status: Ordered nortriptyline 50 mg oral capsule 50 mg, 1, capsule, By Mouth, Daily at bedtime, dose increased, take daily for migraine prevention, # 90 capsule, Refills 1, Tot. Refills 1, Maintenance, 04/04/23 15:00:00 EDT, Route to Pharmacy Electronically, [facility]/pharmacy #[id number], Partial fill upon pat... Start Date: 04/04/23 [...] S Resident Member Role: PCP Address: Address: [address] [place] [address] [place] [address]- Care Team Related Persons Name: NADER CHAVEZ Address: home [address] [place] [address] Name: DIONTE HARRELL Address: home [address] [place] [address] Name: KRISHNA PA Address: home [address] [place] [address]
--- OUTSIDE RECORDS SUMMARY | 2024-06-05 13:23 | XMS_ITS | Continuity of Care Document ---
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 Role Phone Sanjana KAHN, Natalee Rolon Primary Care Physic brian [place] [facility] [place]s): 03/29/20 - 03/29/[address] [address]- [facility] Discharge Disposition: A-D/C Home Attending Physician: Flora Loya DO Admitting Physician: Flora Loya DO Referring Physician: Not on Staff, Referring MD Allergies, Adverse Reactions, Alerts Substance Reaction Severity Status NKA Active Immunizations Given and Recorded Vaccine Date Status Refusal Reason influenza virus vaccine, inactivated 11/01/19 Give n [...] 12:58:17 EDT, Aerosol, Route to Pharmacy Electronically, [id number], [facility]/pharmacy #[id number] Start Date: 06/20/19 Stop Date: 06/27/19 Status: Ordered ceftriaxone 250 mg injectable powder for injection = 250 mg, Intramuscular, Once, Lot #: [id number] Exp: 09/2020, # 1 Doses, 0 Refills, Soft Stop, 03/04/19 11:49:13 EDT Start Date: 03/04/19 Status: Ordered Hernia Belt Hernia Belt, See Instructions, # 1 each, Refills 0, Tot. Refills 0, Maintenance, Hernia Belt, 05/06/19 19:12:26 EDT, Compound Start Date: 05/06/19 Status: Ordered ibuprofen 600 mg oral tablet 600 mg, 1, tablet, By Mouth, 4 times a day, PRN, for 5 days, # 20 tablet, Refills 0, Tot. Refills 0, Acute 04/03/20 21:46:00 EDT, for pain, 03/29/20 21:46:00 EDT, Route to Pharmacy Electronically, [facility]/pharmacy #[id number], 173, cm, 03/29/20 18:07:00 EDT, He... Start Date: 03/29/20 Stop Date: 04/03/20 Status: Ordered Medrol 4 mg oral tablet 1 pack/packet, By Mouth, Once, # 21 tablet, 0 Refills, Soft Stop, 06/20/19 12:58:35 EDT, Tablet Start Date: 06/20/19 Status: Ordered ondansetron 4 mg oral tablet, disintegrating 1 tablet = 4 mg, By Mouth, Every 8 hours, PRN as needed for nausea/vomiting, # 9 tablet, 0 Refills,Maintenance, 03/29/20 21:46:00 EDT, DIS Tablet, [facility]/pharmacy #[id number], 173, cm, 03/29/20 18:07:00 EDT,Height, 97, kg, 03/29/20 18:07:00 EDT, Dry Weight Start Date: 03/29/20 Stop Date: 04/01/20 Status: Ordered Problem List Condition Effective Dates Status Health Status Inform ant Abdominal pain(Confirmed) Active Acne(Confirmed) Active Asthma(Confirmed) Active Intermittent Explosive Disorder(Confirmed) 1 Active Irritable bowel(Confirmed) Active Hepatic cyst, right lobe(Confirmed) 2 01/27/14 Active 1[facility] 2Measures 2.4 x 1.9 x 1.7 cm and contains peripheral calcification along its posterior medial aspect Vital Signs Most recent to oldest [Reference Range]: 1 2 Height 173 cm (03/29/20 6:07 PM) Weight 97 kg (03/29/20 6:07 PM) Oxygen Saturation [94-100 %] 98 % (03/29/20 9:35 PM) 100 % (03/29/20 6:07 PM) Pulse Rate [55-90 bpm] 80 bpm (03/29/20 9:35 PM) 83 bpm (03/29/20 6:07 PM) Body Mass Index [18.5-24.99] 32.41 *>HHI* (03/29/20 6:07 PM) Blood Pressure [90-138/55-84 mm Hg] 143/ 79mm Hg *H* (03/29/20 9:35 PM) 154/70mm Hg *H* (03/29/20 6:07 PM) Respiratory Rate [16-30 br/min] 16 br/mi n (03/29/20 9:35 PM) 17 br/min (03/29/20 6:07 PM) Temperature [96.8-100.4 DegF] 98 DegF (03/29/20 9:35 PM) 98.3 DegF (03/29/20 6:07 PM) Mode of Delivery (Oxygen) Room air (03/29/20 9:35 PM) Room air (03/29/20 6:07 PM) Blood pressure sites Arm, left (03/29/20 9:35 PM) Arm, right (03/29/20 6:07 PM) Temperature Route Oral (03/29/20 9:35 PM) Oral (03/29/20 6:07 PM) Dry Weight 97 kg (03/29/20 6:07 PM) Weight Obtained Via Standing scale (03/29/20 6:07 PM) Dry Weight Obtained Via Standing scale (03/29/20 6:07 PM) Social History Social History Type Response Smoking Status Former smoker, quit more than 30 days ago entered on: 09/21/18 Sex
--- OUTSIDE RECORDS SUMMARY | 2024-06-05 13:23 | XMS_ITS | Continuity of Care Document ---
Author Organization [facility] Address [address] [place] [address]- Care Team Providers Care Rn Mds Coordinator Name Role Phone Sanjana KAHN, Natalee Rolon Primary Care Physic brian [facility] Date[facility]s): 09/17/20 - 10/17/20 [facility] [address] [place] [address]- Allergies, Adverse Reactions, Alerts Substance Reaction Severity [...] 12:58:17 EDT, Aerosol, Route to Pharmacy Electronically, [id number], [id number] Start Date: 06/20/19 Stop Date: 06/27/19 Status: Ordered amLODIPine 5 mg oral tablet 5 mg, 1, tablet, By Mouth, Daily, # 30 tablet, Refills 3, Tot. Refills 3, Maintenance, 07/16/20 13:50:00 EST, Route to Pharmacy Electronically, [facility]/pharmacy #[id number], Partial fill upon patient request, 173, cm, 06/08/20 10:54:00 EDT, Height, 97, kg, 080... Start Date: 07/16/20 Status: Ordered Colace sodium 100 mg oral capsule 100 mg, 1, capsule, By Mouth, 2 times a day, PRN, # 180 capsule, Refills 0, Tot. Refills 0, Maintenance, for constipation, 07/16/20 15:56:00 EST, Route to Pharmacy Electronically, [facility]/pharmacy #[id number],Partial fill upon patient request, 173, cm, 2... Start Date: 07/16/20 Status: Ordered dicyclomine 10 mg oral capsule 1 capsule = 10 mg, By Mouth, 4 times a day, # 56 capsule, 0 Refills, Maintenance, 07/16/20 13:50:00EST, Capsule, [facility]/pharmacy #[id number], Partial fill upon patient request, 173, cm, 06/08/20 10:54:00 EDT, Height, 97, kg, 03/29/20 18:07:00 EDT, Dry Weight Start Date: 07/16/20 Stop Date: 07/30/20 Status: Ordered famotidine 20 mg oral tablet 20 mg, 1, tablet, By Mouth, Daily, # 90 tablet, Refills 11, Tot. Refills 11, Maintenance, 05/18/20 19:50:00 EDT, Route to Pharmacy Electronically, [facility]/pharmacy #[id number], 173, cm, 04/29/20 16:50:00 EDT, Height, 97, kg, 03/29/20 18:07:00 EDT, Dry Weight Start Date: 05/18/20 Stop Date: 05/03/23 Status: Ordered MiraLax oral powder for reconstitution = 17 Gm, By Mouth, Daily, dissolve in water before taking, # 1,530 Gm, 0 Refills, Maintenance, 07/16/20 13:50:00 EST, REC Powder, [id number], Partial fill upon patient request, 17 Gm By MouthDaily,Instr:dissolve in water before taking, 173, c... Start Date: 07/16/20 Status: Ordered Problem List Condition Effective Dates Status Health Status Inform ant Abdominal pain(Confirmed) Active Acne(Confirmed) Active Asthma(Confirmed) Active Intermittent Explosive Disorder(Confirmed) 1 Active Irritable bowel(Confirmed) Active Hepatic cyst, right lobe(Confirmed) 2 01/27/14 [facility] 2Measures 2.4 x 1.9 x 1.7 cm and contains peripheral calcification along its posterior medial aspect Social History Social History Type Response Smoking Status Former smoker, quit more than 30 days ago entered on: 09/21/18 Sex
--- OUTSIDE RECORDS SUMMARY | 2024-06-05 13:23 | XMS_ITS | Continuity of Care Document ---
Author Organization [facility] Address [address] [place] [address]- Care Team Providers Care Truck Driver Instructor Name Role Phone Sanjana KAHN, Natalee Rolon Primary Care Physic brian Encounter [facility] Date(s): 03/23/20 - 04/22/20 [facility] De Erica [address] [place] [address] Allergies, Adverse Reactions, Alerts Substance Reaction Severity [...] 12:58:17 EDT, Aerosol, Route to Pharmacy Electronically, [id number], [facility]/pharmacy #[id number] Start Date: 06/20/19 Stop Date: 06/27/19 Status: Ordered ceftriaxone 250 mg injectable powder for injection = 250 mg, Intramuscular, Once, Lot #: [id number] Exp: 09/2020, # 1 Doses, 0 Refills, Soft Stop, 03/04/19 11:49:13 EDT Start Date: 03/04/19 Status: Ordered docusate sodium 100 mg oral capsule 100 mg, 1, capsule, By Mouth, 2 times a day, PRN, # 20 capsule, Refills 0, Tot. Refills 0, Maintenance, for constipation, 04/03/20 13:10:00 EDT, [id number], 173, cm, 03/29/20 18:07:00 EDT, Height, 97, kg, 08/0... Start Date: 04/03/20 Status: Ordered Hernia Belt Hernia Belt, See Instructions, # 1 each, Refills 0, Tot. Refills 0, Maintenance, Hernia Belt, 05/06/19 19:12:26 EDT, Compound Start Date: 05/06/19 Status: Ordered Medrol 4 mg oral tablet 1 pack/packet, By Mouth, Once, # 21 tablet, 0 Refills, Soft Stop, 06/20/19 12:58:35 EDT, Tablet Start Date: 06/20/19 Status: Ordered methocarbamol 750 mg oral tablet 2 tablet = 1,500 mg, By Mouth, 3 times a day, for 5 days, for back pain., # 30 tablet, 0 Refills, Acute 04/26/20 15:34:00 EDT, 04/21/20 15:34:00 EDT, Tablet, [facility]/pharmacy #[id number], 173, cm, 04/21/20 14:42:00 EDT, Height, 97, kg, 03/29/20 18:07:00 EDT, Start Date: 04/21/20 Stop Date: 04/26/20 Status: Ordered MiraLax oral powder for reconstitution = 17 Gm, By Mouth, Daily, PRN Constipation, dissolve in water before taking, # 255 Gm, 0 Refills, Maintenance, 04/21/20 15:34:00 EDT, REC Powder, [facility]/pharmacy #[id number], 17 Gm By Mouth Daily,PRN:Constipation,Instr:dissolve in water before taking, 173, cm,... Start Date: 04/21/20 Status: Ordered ondansetron 4 mg oral tablet, disintegrating 1 tablet = 4 mg, By Mouth, Every 8 hours, PRN as needed for nausea/vomiting, # 9 tablet, 0 Refills,Maintenance, 03/29/20 21:46:00 EDT, DIS Tablet, [facility]/pharmacy #[id number], 173, cm, 03/29/20 18:07:00 EDT,Height, 97, kg, 03/29/20 18:07:00 EDT, Dry Weight Start Date: 03/29/20 Stop Date: 04/01/20 Status: Ordered Problem List Condition Effective Dates Status Health Status Inform ant Abdominal pain(Confirmed) Active Acne(Confirmed) Active Asthma(Confirmed) Active Intermittent Explosive Disorder(Confirmed) 1 Active Irritable bowel(Confirmed) Active Hepatic cyst, right lobe(Confirmed) 2 01/27/14 Active [facility] 2Measures 2.4 x 1.9 x 1.7 cm and contains peripheral calcification along its posterior medial aspect Social History Social History Type Response Smoking Status Former smoker, quit more than 30 days ago entered on: 09/21/18 Sex
--- OUTSIDE RECORDS SUMMARY | 2024-06-05 13:23 | XMS_ITS | Continuity of Care Document ---
Author Organization [facility] Address [address] [place] [address]- Care Team Providers Care Kennel Helper Name Role Phone Zuri Velázquez MD Primary Care Physician Encounter [facility] Date(s): 09/09/22 - 10/09/22 [facility] [address] [place] [id number] Allergies, Adverse Reactions, Alerts No Known Allergies Immunizations Given and Recorded Vaccine Date Status Refusal Reason influenza virus vaccine, inactivated 06/08/20 Give n influenza virus vaccine, inactivated 11/01/19 Give n influenza virus vaccine, inactivated 07/13/17 Give n influenza virus vaccine, inactivated 09/24/13 Give n tetanus/diphtheria/pertussis, acel(Tdap) 02/07/18 Given influenza virus vaccine, live 1 07/27/12 Given 1Admin Note: VIS DATED 02/27/2012 GIVEN. Medications famotidine 20 mg oral tablet 20 mg, 1, tablet, By Mouth, 2 times a day, # 28 tablet, Refills 0, Tot. Refills 0, Maintenance, 09/10/21 7:39:00 EST, Route to Pharmacy Electronically, [facility]/pharmacy #[id number], Partial fill upon patient request if the prescription is for a schedule II opio... Start Date: 09/10/21 Stop Date: 09/24/21 Status: Ordered nortriptyline 10 mg oral capsule 10 mg, 1, capsule, By Mouth, Daily at bedtime, # 30 capsule, Refills 1, Tot. Refills 1, Maintenance, 07/04/22 15:54:00 EST, Route to Pharmacy Electronically, [facility]/pharmacy #[id number], Partial fill upon patient request if the prescription is for a schedule I... Start Date: 07/04/22 Status: Ordered Problem List Condition Confirmation Course [...] Team Personnel Name: Zuri Velázquez MD Position: [facility] Resident Member Role: PCP Address: Address: [address] [place] [address] [place] [address]- [place] Care Team Related Persons Name: NADER CHAVEZ Address: home [address] [place] [address] Name: DIONTE HARRELL Address: home [address] [place] [address] Name: KRISHNA PA Address: home [address] [place] [address]
--- OUTSIDE RECORDS SUMMARY | 2024-06-05 13:23 | XMS_ITS | Continuity of Care Document ---
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 Name Role Phone Zuri Velázquez MD Primary Care Physician Encounter [facility] Date(s): 03/06/23 - 04/08/[address] [address] Attending Physician: Taylor Chacon NP Admitting Physician: Taylor Chacon NP Referring Physician: Taylor Chacon NP Allergies, Adverse Reactions, Alerts No Known Allergies Immunizations Given and Recorded Vaccine Date Status Refusal Reason influenza virus vaccine, inactivated 06/08/20 Give n influenza virus vaccine, inactivated 11/01/19 Give n influenza virus vaccine, inactivated 07/13/17 Give n influenza virus vaccine, inactivated 09/24/13 Give n tetanus/diphtheria/pertussis, acel(Tdap) 02/07/18 Given influenza virus vaccine, live 1 07/27/12 Given 1Admin Note: VIS DATED 02/27/2012 GIVEN. Medications acetaminophen 325 mg oral tablet 650 mg, 2, tablet, By Mouth, Every 4 hours, PRN, for 7 days, No more than 10 pills in 24 hours, # 50 tablet, Refills 1, Tot. Refills 1, Acute 04/18/23 15:02:00 EDT, as needed for pain, fever, 04/04/23 15:02:00 EDT, Route to Pharmacy Electronically, [facility]... Start Date: 04/04/23 Stop Date: 04/18/23 Status: Ordered cyclobenzaprine 10 mg oral tablet 10 mg, 1, tablet, By Mouth, 3 times a day, PRN, # 42 tablet, Refills 0, Tot. Refills 0, Acute 04/26/23 15:03:00 EDT, Spasm for spasm, 04/04/23 15:03:00 EDT, Route to Pharmacy Electronically, [facility]/pharmacy #[id number], Partial fill upon patient request if t... Start Date: 04/04/23 Stop Date: 04/26/23 Status: Ordered nortriptyline 50 mg oral capsule 50 mg, 1, capsule, By Mouth, Daily at bedtime, dose increased, take daily for migraine prevention, # 90 capsule, Refills 1, Tot. Refills 1, Maintenance, 04/04/23 15:00:00 EDT, [id number] Partial fill upon pat... Start Date: [...] Team Personnel Name: Zuri Velázquez MD Position: [facility] Resident Member Role: PCP Address: Address: [address] [place] [address] [place] [address]- Care Team Related Persons Name: NADER CHAVEZ Address: [address] [place] [address] Name: DIONTE HARRELL Address: [address] [place] [address] Name: KRISHNA PA Address: [address] [place] [address]
--- OUTSIDE RECORDS SUMMARY | 2024-06-05 13:24 | XMS_ITS | Continuity of Care Document ---
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 Start Date: 06/06/23 Status: Ordered meloxicam 7.5 mg oral tablet 1 tablet = 7.5 mg, By Mouth, Daily, prn pain, take with food, # 30 tablet, 1 Refills, Maintenance, 06/13/23 16:51:00 EDT, Tablet, [facility]/pharmacy #[id number], Partial fill upon patient request if the prescription is for a schedule II opioid drug., 173, cm, 10/... Start Date: 06/13/23 Status: Ordered nortriptyline 50 mg oral capsule 50 mg, 1, capsule, By Mouth, Daily at bedtime, dose increased, take daily for migraine prevention, # 90 capsule, Refills 1, Tot. Refills 1, Maintenance, 04/04/23 15:00:00 EDT, Route to Pharmacy Electronically, [facility]/pharmacy #[id number], Partial fill upon pat... Start Date: 04/04/23 Status: Ordered Bingham 0.65% nasal spray 2 sprays, Nares, Both, 4 times a day, # 1 each, 5 Refills, Maintenance, 06/13/23 16:48:00 EDT, [facility]/pharmacy #[id number], Partial fill upon patient request if the prescription is for a schedule II opioid drug., 2 sprays Nares, Both 4 times a day, 173, cm, 10... Start Date: 06/13/23 Status: Ordered propranolol 60 mg oral capsule, extended release 60 mg, 1, capsule, By Mouth, Daily, # 30 capsule, Refills 5, Tot. Refills 5, Maintenance, 06/13/23 16:46:00 EDT, Route to Pharmacy Electronically, [facility]/pharmacy #[id number], Partial fill upon patient request if the prescription is for a schedule II opioid dr... Start Date: 06/13/23 Status: Ordered Readi-Cat 2 [...] Team Personnel Name: Zuri Velázquez MD Position: [facility] Resident Member Role: PCP Address: Address: [address] [place] [address] [place] [address]- [place] Care Team Related Persons Name: NADER CAHVEZ Address: [address] [place] [address] Name: DIONTE HARRELL Address: [address] [place] [address] Name: KRISHNA PA Address: [address] [place] [address]
--- OUTSIDE RECORDS SUMMARY | 2024-06-05 13:24 | XMS_ITS | Continuity of Care Document ---
Author Organization [facility] Address [address] [place] [address]- Care Team Providers Care Lifestyle Consultant Name Role Phone Sanjana KAHN, Natalee Rolon Primary Care Physic brian Encounter [facility] Date(s): 04/10/20 - 05/16/20 [facility] [address] [place] [address]- [facility] Attending Physician: Randy Zuñiga MD Admitting Physician: Randy Zuñiga MD Allergies, Adverse Reactions, Alerts Substance Reaction [...] 12:58:17 EDT, Aerosol, Route to Pharmacy Electronically, [id number], [facility]/pharmacy #[id number] Start Date: 06/20/19 Stop Date: 06/27/19 Status: Ordered ceftriaxone 250 mg injectable powder for injection = 250 mg, Intramuscular, Once, Lot #: [id number] Exp: 09/2020, # 1 Doses, 0 Refills, Soft Stop, 03/04/19 11:49:13 EDT Start Date: 03/04/19 Status: Ordered famotidine 20 mg oral tablet 20 mg, 1, tablet, By Mouth, Daily, # 90 tablet, Refills 11, Tot. Refills 11, Maintenance, 05/08/20 13:39:00 EDT, Route to Pharmacy Electronically, [facility]/pharmacy #[id number], 173, cm, 04/29/20 16:50:00 EDT, Height, 97, kg, 03/29/20 18:07:00 EDT, Dry Weight Start Date: 05/08/20 Stop Date: 04/23/23 Status: Ordered Hernia Belt Hernia Belt, See Instructions, # 1 each, Refills 0, Tot. Refills 0, Maintenance, Hernia Belt, 05/06/19 19:12:26 EDT, Compound Start Date: 05/06/19 Status: Ordered Medrol 4 mg oral tablet 1 pack/packet, By Mouth, Once, # 21 tablet, 0 Refills, Soft Stop, 06/20/19 12:58:35 EDT, Tablet Start Date: 06/20/19 Status: Ordered MiraLax oral powder for reconstitution = 17 Gm, By Mouth, Daily, PRN Constipation, dissolve in water before taking, # 527 Gm, 1 Refills, Maintenance, 05/07/20 14:25:00 EDT, REC Powder, [facility]/pharmacy #[id number], 17 Gm By Mouth Daily,PRN:Constipation,Instr:dissolve in water before taking, 173, cm,... Start Date: 05/07/20 Status: Ordered ondansetron 4 mg oral tablet, disintegrating 1 tablet = 4 mg, By Mouth, Every 8 hours, PRN as needed for nausea/vomiting, # 9 tablet, 0 Refills,Maintenance, 03/29/20 21:46:00 EDT, DIS Tablet, [facility]/pharmacy #[id number], 173, cm, 03/29/20 18:07:00 EDT,Height, 97, kg, 03/29/20 18:07:00 EDT, Dry Weight Start Date: 03/29/20 Stop Date: 04/01/20 Status: Ordered Problem List Condition Effective Dates Status Health Status Inform ant Abdominal pain(Confirmed) Active Acne(Confirmed) Active Asthma(Confirmed) Active Intermittent Explosive Disorder(Confirmed) 1 Active Irritable bowel(Confirmed) Active Hepatic cyst, right lobe(Confirmed) 2 6/2/14 [facility] 2Measures 2.4 x 1.9 x 1.7 cm and contains peripheral calcification along its posterior medial aspect Social History Social History Type Response Smoking Status Former smoker, quit more than 30 days ago entered on: 09/21/18 Sex
--- OUTSIDE RECORDS SUMMARY | 2024-06-05 13:24 | XMS_ITS | Continuity of Care Document ---
Author Organization [facility] Address [address] [place] [address]- Care Team Providers Care Elastic Attacher Overlock Name Role Phone Zuri Velázquez MD Primary Care Physician Encounter [facility] Date(s): 12/22/22 - 01/21/23 [facility] [address] [place], [place] [address] Attending Physician: Vanessa Fontaine Admitting Physician: AdmtrVanessa Referring Physician: Admtr, Ar8 Allergies, Adverse Reactions, Alerts No Known Allergies Immunizations Given and Recorded Vaccine Date Status Refusal Reason influenza virus vaccine, inactivated 06/08/20 Give n influenza virus vaccine, inactivated 11/01/19 Give n influenza virus vaccine, inactivated 07/13/17 Give n influenza virus vaccine, inactivated 09/24/13 Give n tetanus/diphtheria/pertussis, acel(Tdap) 02/07/18 Given influenza virus vaccine, live 1 07/27/12 Given 1Admin Note: VIS DATED 02/27/2012 GIVEN. Medications Bilateral Cock-up wrist splints Bilateral Cock-up wrist splints, See Instructions, # 2 each, Refills 0, Tot. Refills 0, Maintenance, Dx: CTS, bilateral, 12/26/22 12:27:00 EDT, Supply Start Date: 12/26/22 Status: Ordered carvedilol 6.25 mg oral tablet 6.25 mg, 1, tablet, By Mouth, 2 times a day, # 60 tablet, Refills 1, Tot. Refills 1, Maintenance, 10/17/22 9:48:00 EST, Route to Pharmacy Electronically, [facility]/pharmacy #[id number], Partial fill upon patientrequest if the prescription is for a schedule II op... Start Date: 10/17/22 Status: Ordered clindamycin 1% topical solution 1 application, Topically, 2 times a day, # 60 mL, 1 Refills, Maintenance, 10/17/22 9:33:00 EST, Solution, [id number], Partial fill upon patient request if the prescription is for a schedule II opioid drug., 1 application Topically 2 times a da... Start Date: 10/17/22 Stop Date: 11/14/22 Status: Ordered dicyclomine 20 mg oral tablet 1 tablet = 20 mg, By Mouth, 4 times a day, Take 30 to 60 minutes before meals for prevention of postprandial abdominal pain., # 28 tablet, 0 Refills, Maintenance, 01/04/23 13:16:00 EDT, Tablet, [id number], Partial fill upon patient request if... Start Date: 01/04/23 Stop Date: 01/11/23 Status: Ordered famotidine 20 mg oral tablet 20 mg, 1, tablet, By Mouth, 2 times a day, # 28 tablet, Refills 0, Tot. Refills 0, Maintenance, 09/10/21 7:39:00 EST, Route to Pharmacy Electronically, [id number], Partial fill upon patient request if the prescription is for a schedule II opio... Start Date: 09/10/21 Stop Date: 09/24/21 Status: Ordered loperamide 2 mg oral tablet 1 tablet = 2 mg, By Mouth, Every 4 hours, PRN as needed for loose stool, for 7 days, not to exceed 16 mg/day, # 24 tablet, 1 Refills, Acute 01/23/23 12:23:00 EDT, 01/09/23 12:23:00 EDT, Tablet, [id number], Partial fill upon patient request if... Start Date: 01/09/23 Stop Date: 01/23/23 Status: Ordered nortriptyline 10 mg oral capsule 10 mg, 1, capsule, By Mouth, Daily at bedtime, # 30 capsule, Refills 5, Tot. Refills 5, Maintenance, 12/26/22 12:14:00 EDT, Route to Pharmacy Electronically, [id number], Partial fill upon patient request if the prescription is for a schedule I... Start Date: 12/26/22 Status: Ordered Readi-Cat 2 oral suspension 450 mL = 9 Gm, By Mouth, 2 times a day, Please dispense two 450 mL bottles for a total dose that equals 900 mLs. Drink first bottle [address] and then drink second bottle [address] scan,# 2 each, 0 Refills, Maintenance, 01/04/23 13:08:00... Start Date: 01/04/23 Status: Ordered SUMAtriptan 25 mg oral tablet 1 tablet = 25 mg, By Mouth, Once, PRN as needed for migraine headache, may repeat dose in 2 hours if needed, # 9 tablet, 2 Refills, Soft Stop, 12/12/22 15:40:00 EDT, [facility]/pharmacy #[id number], Partial fill upon patient request if the prescription is for a sc... Start Date: 12/12/22 Status: Ordered Wedge Pillow Wedge Pillow, See [...] 30 days ago entered on: 09/21/18 Sex EKG study * Event Display: EKG Authored Date: Patient Care team information Care Team Personnel Name: Zuri Velázquez MD Position: [facility] Resident Member Role: PCP Address: Address: [address] [place] [address] [place] [address]- Care Team Related Persons Name: NADER CHAVEZ Address: home [address] [place] [address] Name: DIONTE HARRELL Address: home [address] [place] [address] Name: KRISHNA PA Address: home [address] [place] [address]
--- OUTSIDE RECORDS SUMMARY | 2024-06-05 13:24 | XMS_ITS | Continuity of Care Document ---
Author Organization [facility] ter Address [address] [place] [address]- Care Team Providers Care Bench Technician Name Role Phone Sanjana KAHN, Natalee Rolon Primary Care Physic brian Encounter [facility] Date(s): 03/01/21 - 03/01/[address] [address]- Discharge Disposition: A-D/C Walkout Attending Physician: Mckinley Chu MD Admitting Physician: Mckinley Chu MD Referring Physician: Not on Staff, Referring MD [...] 12:58:17 EDT, Aerosol, Route to Pharmacy Electronically, [id number], [facility]/pharmacy #[id number] Start Date: 06/20/19 Stop Date: 06/27/19 Status: Ordered amLODIPine 5 mg oral tablet 5 mg, 1, tablet, By Mouth, Daily, # 30 tablet, Refills 3, Tot. Refills 3, Maintenance, 07/16/20 13:50:00 EST, Route to Pharmacy Electronically, [facility]/pharmacy #[id number], Partial fill upon patient request, 173, cm, 06/08/20 10:54:00 EDT, Height, 97, kg, 0... Start Date: 07/16/20 Status: Ordered Blood Pressure Monitor Blood Pressure Monitor, See Instructions, # 1 each, Refills 0, Tot. Refills 0, Maintenance, Blood Pressure Monitor Check blood pressure once a day at least one hour after taking medications [id number] PO TID Dx: I15.9 Duration: Lifetime, 11/11... Start Date: 11/11/20 Status: Ordered Colace sodium 100 mg oral capsule 100 mg, 1, capsule, By Mouth, 2 times a day, PRN, # 180 capsule, Refills 0, Tot. Refills 0, Maintenance, for constipation, 07/16/20 15:56:00 EST, Route to Pharmacy Electronically, [facility]/pharmacy #[id number],Partial fill upon patient request, 173, cm, ... Start Date: 07/16/20 Status: Ordered dicyclomine 10 mg oral capsule 1 capsule = 10 mg, By Mouth, 4 times a day, # 56 capsule, 1 Refills, Maintenance, 11/03/20 13:15:00EST, Capsule, [facility]/pharmacy #[id number], Partial fill upon patient request, 173, cm, 11/03/20 12:57:00 EST, Height, 97, kg, 03/29/20 18:07:00 EDT, Dry Weight Start Date: 11/03/20 Stop Date: 12/01/20 Status: Ordered famotidine 20 mg oral tablet 20 mg, 1, tablet, By Mouth, Daily, # 90 tablet, Refills 11, Tot. Refills 11, Maintenance, 10/28/20 14:31:00 EST, Route to Pharmacy Electronically, [facility]/pharmacy #[id number], 173, cm, 10/28/20 13:50:00 EST, Height, [...] 0 Refills,Maintenance, 11/03/20 13:15:00 EST, DIS Tablet, [id number], 173, cm, 11/03/20 12:57:00 EST,Height, 97, kg, 03/29/20 18:07:00 EDT, Dry Weight Start Date: 11/03/20 Stop Date: 11/06/20 Status: Ordered verapamil 40 mg oral tablet 1 tablet = 40 mg, By Mouth, 3 times a day, # 90 tablet, 1 Refills, Maintenance, 11/05/20 17:59:00 EST, Tablet, [facility]/pharmacy #[id number], Partial fill upon patient request if the prescription is for a schedule II opioid drug., 173, cm, 11/05/20 17:02:00 EST,... Start Date: 11/05/20 Status: Ordered Problem List Condition Effective Dates Status Health Status Inform ant Abdominal pain(Confirmed) Active Acne(Confirmed) Active Asthma(Confirmed) Active Intermittent Explosive Disorder(Confirmed) 1 Active Irritable bowel(Confirmed) Active Hepatic cyst, right lobe(Confirmed) 2 01/27/[address] [place] [address] Center 2Measures 2.4 x 1.9 x 1.7 cm and contains peripheral calcification along its posterior medial aspect Vital Signs Most recent to oldest [Reference Range]: 1 2 Oxygen Saturation [94-100 %] 100 % (03/01/21 2:30 PM) 100 % (03/01/21 2:15 PM) Pulse Rate [55-90 bpm] 72 bpm (03/01/21 2:30 PM) 75 bpm (03/01/21 2:15 PM) Blood Pressure [90-138/55-84 mm Hg] 167/ 68mm Hg *H* (03/01/21 2:30 PM) Respiratory Rate [16-30 br/min] 20 br/mi n (03/01/21 2:30 PM) Temperature [96.8-100.4 DegF] 99.1 DegF (03/01/21 2:30 PM) Mode of Delivery (Oxygen) Room air (03/01/21 2:30 PM) Room air (03/01/21 2:15 PM) Blood pressure sites Arm, right (03/01/21 2:30 PM) Temperature Route Oral (03/01/21 2:30 PM) Social History Social History Type Response Smoking Status Former smoker, quit more than 30 days ago entered on: 09/21/18 Sex
--- OUTSIDE RECORDS SUMMARY | 2024-06-05 13:24 | XMS_ITS | Continuity of Care Document ---
Author Organization [facility] Address [address] [place] [address]- Care Team Providers Care Airplane Tester Name Role Phone Sanjana KAHN, Natalee Rolon Primary Care Physic brian [facility]counter [facility] Date(s): 07/23/21 - 09/24/21 [facility] [address] [place] [address]- Attending Physician: Davis WONG, Kristine Horne Admitting Physician: Davis WONG, Kristine Horne Allergies, Adverse Reactions, Alerts No Known Allergies [...] 12:58:17 EDT, Aerosol, Route to Pharmacy Electronically, [id number], [facility]/pharmacy #[id number] Start Date: 06/20/19 Stop Date: 06/27/19 Status: Ordered amLODIPine 5 mg oral tablet 5 mg, 1, tablet, By Mouth, Daily, # 30 tablet, Refills 3, Tot. Refills 3, Maintenance, 07/16/20 13:50:00 EST, Route to Pharmacy Electronically, [facility]/pharmacy #[id number], Partial fill upon patient request, 173, cm, 06/08/20 10:54:00 EDT, Height, 97, kg, ... Start Date: 07/16/20 Status: Ordered Blood Pressure Monitor Blood Pressure Monitor, See Instructions, # 1 each, Refills 0, Tot. Refills 0, Maintenance, Blood Pressure Monitor Check blood pressure once a day at least one hour after taking medications [id number] PO TID Dx: I15.9 Duration: Lifetime, 11/11... Start Date: 11/11/20 Status: Ordered Colace sodium 100 mg oral capsule 100 mg, 1, capsule, By Mouth, 2 times a day, PRN, # 180 capsule, Refills 0, Tot. Refills 0, Maintenance, for constipation, 07/16/20 15:56:00 EST, Route to Pharmacy Electronically, [facility]/pharmacy #[id number],Partial fill upon patient request, 173, cm, ... Start Date: 07/16/20 Status: Ordered dicyclomine 10 mg oral capsule 1 capsule = 10 mg, By Mouth, 4 times a day, # 56 capsule, 1 Refills, Maintenance, 11/03/20 13:15:00EST, Capsule, [facility]/pharmacy #[id number], Partial fill upon patient request, 173, cm, 11/03/20 12:57:00 EST, Height, 97, kg, 03/29/20 18:07:00 EDT, Dry Weight Start Date: 11/03/20 Stop Date: 12/01/20 Status: Ordered famotidine 20 mg oral tablet 20 mg, 1, tablet, By Mouth, 2 times a day, # 28 tablet, Refills 0, Tot. Refills 0, Maintenance, 09/10/21 7:39:00 EST, Route to Pharmacy Electronically, [facility]/pharmacy #[id number], Partial fill upon patient request if the prescription is for a schedule II opio... Start Date: 09/10/21 Stop Date: 09/24/21 Status: Ordered MiraLax oral powder for reconstitution = 17 Gm, By Mouth, Daily, dissolve in water before taking, # 1,530 Gm, 0 Refills, Maintenance, 07/16/20 13:50:00 EST, REC Powder, [facility]/pharmacy #[id number], Partial fill upon patient request, 17 Gm By MouthDaily,Instr:dissolve in water before taking, 173, c... Start Date: 07/16/20 Status: Ordered ondansetron 4 mg oral tablet, disintegrating 1 tablet = 4 mg, By Mouth, Every 8 hours, PRN as needed for nausea/vomiting, # 9 tablet, 0 Refills,Maintenance, 11/03/20 13:15:00 EST, DIS Tablet, [facility]/pharmacy #[id number], 173, cm, 11/03/20 12:57:00 EST,Height, 97, kg, 03/29/20 18:07:00 EDT, Dry Weight Start Date: 11/03/20 Stop Date: 11/06/20 Status: Ordered verapamil 40 mg oral tablet 1 tablet = 40 mg, By Mouth, 3 times a day, # 90 tablet, 1 Refills, Maintenance, 11/05/20 17:59:00 EST, Tablet, [facility]/pharmacy #[id number], Partial fill upon patient request if [...]
--- OUTSIDE RECORDS SUMMARY | 2024-06-05 13:24 | XMS_ITS | Continuity of Care Document ---
Author Organization [facility] Address [address] [place] [address]- Care Team Providers Care Ice Sculptor Name Role Phone Zuri Velázquez MD Primary Care Physician [place] [facility] [place] - 03/12/23 [facility] [address] [place], [place] [address] Attending Physician: Not on Staff, Attending MD Allergies, Adverse Reactions, Alerts No Known Allergies Immunizations Given and Recorded Vaccine Date Status Refusal Reason influenza virus vaccine, inactivated 06/08/20 Give n influenza virus vaccine, inactivated 11/01/19 Give n influenza virus vaccine, inactivated 07/13/17 Give n influenza virus vaccine, inactivated 09/24/13 Give n tetanus/diphtheria/pertussis, acel(Tdap) 02/07/18 Given influenza virus vaccine, live 1 07/27/12 Given 1Admin Note: VIS DATED 02/27/2012 GIVEN. Medications nortriptyline 50 mg oral capsule 50 mg, 1, capsule, By Mouth, Daily at bedtime, dose increased, take daily for migraine prevention, # 90 capsule, Refills 0, Tot. Refills 0, Maintenance, 02/23/23 10:04:00 EDT, Route to Pharmacy Electronically, [facility]/pharmacy #[id number], Partial fill upon pat... Start Date: 02/23/23 Status: Ordered Readi-Cat 2 oral suspension 450 [...] Team Personnel Name: Zuri Velázquez MD Position: [facility] Resident Member Role: PCP Address: Address: [address] [place] [address] [place] [address]- Care Team Related Persons Name: NADER CHAVEZ Address: home [address] [place] [address] Name: DIONTE HARRELL Address: home [address] [place] [address] Name: KRISHNA PA Address: home [address] [place] [address]
--- OUTSIDE RECORDS SUMMARY | 2024-06-05 13:24 | XMS_ITS | Continuity of Care Document ---
Author Organization [facility] Address [address] [place] [address]- Care Team Providers Care Longwall Shearer Operator Name Role Phone Zuri Velázquez MD Primary Care Physician [phone] Encounter [facility] Date[facility]s): 01/04/23 - 02/16/[address] [address] Attending Physician: Taylor Chacon NP Admitting [...] Note: VIS DATED 02/27/2012 GIVEN. Medications nortriptyline 25 mg oral capsule 25 mg, 1, capsule, By Mouth, Daily at bedtime, dose increased, take daily for migraine prevention, # 30 capsule, Refills 11, Tot. Refills 11, Maintenance, 01/31/23 15:20:00 EDT, Route to Pharmacy Electronically, [facility]/pharmacy #[id number], Partial fill upon p... Start Date: 01/31/23 Status: Ordered Readi-Cat 2 oral suspension 450 [...] 1 tablet = 25 mg, By Mouth, Daily, PRN for migraine headache, may repeat dose after 2 hours up to amaximum of 2, # 18 tablet, 1 Refills, Maintenance, 01/31/23 15:22:00 EDT, Tablet, [id number], Partial fill upon patient request if the prescrip... Start Date: 01/31/23 Status: Ordered Problem List Condition Confirmation Course [...] Team Personnel Name: Zuri Velázquez MD Position: [facility] Resident Member Role: PCP Address: Address: [address] [place] [address] [place] [address]- Care Team Related Persons Name: NADER CHAVEZ Address: home [address] [place] [address] Name: DIONTE HARRELL Address: home [address] [place] [address] Name: KRISHNA PA Address: home [address] [place] [address]
--- OUTSIDE RECORDS SUMMARY | 2024-06-05 13:24 | XMS_ITS | Continuity of Care Document ---
Author Organization [facility] Address [address] [place] [address]- Care Team Providers Care Emergency Registrar Name Role Phone Zuri Velázquez MD Primary Care Physician [place] [facility] [place](s[place] 10/19/22 - 11/19/[address] [address] Attending Physician: Kanu WONG, Celina Choi Admitting [...] 9:48:00 EST, Route to Pharmacy Electronically, [facility]/pharmacy #[id number], Partial fill upon patientrequest if the prescription [...] 10/17/22 9:25:00 EST, Route to Pharmacy Electronically, [id number], [...] Team Personnel Name: Zuri Velázquez MD Position: [facility] Resident Member Role: PCP Address: Address: [address] [facility] [place] [address]- Care Team Related Persons Name: NADER CHAVEZ Address: home [address] [place] [address] Name: DIONTE HARRELL Address: home [address] [place] [address] Name: KRISHNA PA Address: [address] [place] [address]
--- OUTSIDE RECORDS SUMMARY | 2024-06-05 13:24 | XMS_ITS | Continuity of Care Document ---
Author Organization [facility] Address [address] [place] [address]- Care Team Providers Care Quality Improvement Manager Name Role Phone Zuri Velázquez MD Primary Care Physician [phone] [place] [facility] [place](s): 11/15/23 - 12/15/23 [facility] [address] [place], [place] [phone] Allergies, Adverse Reactions, Alerts No Known Allergies Immunizations Given and Recorded Vaccine Date Status Refusal Reason influenza virus vaccine, inactivated 06/08/20 Give n influenza virus vaccine, inactivated 11/01/19 Give n influenza virus vaccine, inactivated 07/13/17 Give n influenza virus vaccine, inactivated 09/24/13 Give n tetanus/diphtheria/pertussis, acel(Tdap) 02/07/18 Given influenza virus vaccine, live 1 07/27/12 Given 1Admin Note: VIS DATED 02/27/2012 GIVEN. Medications Blood Pressure Monitor See Instructions, # 1 each, Maintenance, Measure blood pressure daily and keep log for management of hypertension Dx: Hypertension ICD I10 Duration: Lifetime, 10/09/23 16:41:00 EST, Supply Start Date: 10/09/23 Status: Ordered capsaicin 0.025% topical cream 1 application, Topically, 2 times a day, # 45 Gm, 5 Refills, Maintenance, 04/10/23 16:04:00 EDT, Cream, [id number], Partial fill upon patient request if the prescription is for a schedule II opioid drug., 1 application Topically 2 times a day,... Start Date: 04/10/23 Status: Ordered ipratropium nasal 21 mcg/inh spray See Instructions, PRN Nasal Congestion, 1 spray each nostril BID, # 1 each, 4 Refills, Maintenance,06/06/23 13:45:00 EDT, [facility]/pharmacy #[id number], Partial fill upon patient request if the prescription isfor a schedule II opioid drug., 1 spray each nostri... Start Date: 06/06/23 Status: Ordered meloxicam 7.5 mg oral tablet 1 tablet = 7.5 mg, By Mouth, Daily, prn pain, take with food, # 30 tablet, 1 Refills, Maintenance, 06/13/23 16:51:00 EDT, Tablet, [facility]/pharmacy #[id number], Partial fill upon patient request if the prescription is for a schedule II opioid drug., 173, cm, 10... Start Date: 06/13/23 Status: Ordered [place] 0.65% nasal spray 2 sprays, Nares, Both, 4 times a day, # 1 each, 5 Refills, Maintenance, 06/13/23 16:48:00 EDT, [facility]/pharmacy #[id number], Partial fill upon patient request if the prescription is for a schedule II opioid drug., 2 sprays Nares, Both 4 times a day, 173, cm, 10... Start Date: 06/13/23 Status: Ordered olmesartan 5 mg oral tablet 1 tablet = 5 mg, By Mouth, Daily, # 90 tablet, 0 Refills, Maintenance, 10/05/23 15:13:00 EST, Tablet, [facility], Partial fill upon patient request if the prescription is for a schedule II opioid drug., 173, cm, 10/05/23 14:46:00 EST, Height Start Date: 10/05/23 Status: Ordered pantoprazole 40 mg oral delayed [...] 06/13/23 16:46:00 EDT, Route to Pharmacy Electronically, [facility]/pharmacy #[id number], Partial fill upon patient [...] 15:49:00 EST, Aerosol, Route to Pharmacy Electronically, [id number], [facility]/pharmacy #[id number], 173, cm, 07/21/23 14:13:00 EST, Height [...] Care team information Care Team Personnel Name: uZri Velázquez MD Position: [facility] Resident Member Role: PCP Address: Address: [address] [place] [address] [place] [address]- Care Team Related Persons Name: NADER CHAVEZ Address: home [address] [place] [address] Name: DIONTE HARRELL Address: home [address] [place] [address] Name: KRISHNA PA Address: [address] [place] [address]
--- OUTSIDE RECORDS SUMMARY | 2024-06-05 13:24 | XMS_ITS | Continuity of Care Document ---
Author Organization [facility] Address [address] [place] [address]- Care Team Providers Care Headlight Assembler Name Role Phone Sanjana KAHN, Natalee Rolon Primary Care Physic brian [facility] Date(s[facility] 02/18/21 - 03/20/21 [facility] [address] [place], [place] [address] Attending Physician: AdmVanessa mathur Admitting Physician: AdmtrVanessa Referring Physician: Admtr, Ar8 Allergies, Adverse Reactions, Alerts Substance Reaction Severity [...] 12:58:17 EDT, Aerosol, Route to Pharmacy Electronically, [id number], [facility]/pharmacy #[id number] Start Date: 06/20/19 Stop Date: 06/27/19 Status: Ordered amLODIPine 5 mg oral tablet 5 mg, 1, tablet, By Mouth, Daily, # 30 tablet, Refills 3, Tot. Refills 3, Maintenance, 07/16/20 13:50:00 EST, Route to Pharmacy Electronically, [facility]/pharmacy #[id number], Partial fill upon patient request, 173, cm, 06/08/20 10:54:00 EDT, Height, 97, kg, 080... Start Date: 07/16/20 Status: Ordered Blood Pressure Monitor Blood Pressure Monitor, See Instructions, # 1 each, Refills 0, Tot. Refills 0, Maintenance, Blood Pressure Monitor Check blood pressure once a day at least one hour after taking medications [id number] PO TID Dx: I15.9 Duration: Lifetime, 11/11... Start Date: 11/11/20 Status: Ordered Colace sodium 100 mg oral capsule 100 mg, 1, capsule, By Mouth, 2 times a day, PRN, # 180 capsule, Refills 0, Tot. Refills 0, Maintenance, for constipation, 07/16/20 15:56:00 EST, Route to Pharmacy Electronically, [facility]/pharmacy #[id number],Partial fill upon patient request, 173, cm, ... Start Date: 07/16/20 Status: Ordered dicyclomine 10 mg oral capsule 1 capsule = 10 mg, By Mouth, 4 times a day, # 56 capsule, 1 Refills, Maintenance, 11/03/20 13:15:00EST, Capsule, [facility]/pharmacy #[id number], Partial fill upon patient request, 173, cm, 11/03/20 12:57:00 EST, Height, 97, kg, 03/29/20 18:07:00 EDT, Dry Weight Start Date: 11/03/20 Stop Date: 12/01/20 Status: Ordered famotidine 20 mg oral tablet 20 mg, 1, tablet, By Mouth, Daily, # 90 tablet, Refills 11, Tot. Refills 11, Maintenance, 10/28/20 14:31:00 EST, Route to Pharmacy Electronically, [facility]/pharmacy #[id number], 173, cm, 10/28/20 13:50:00 EST, Height, 97, kg, 03/29/20 18:07:00 EDT, Dry Weight Start Date: 10/28/20 Stop Date: 10/13/23 Status: Ordered MiraLax oral powder for reconstitution = 17 Gm, By Mouth, Daily, dissolve in water before taking, # 1,530 Gm, 0 Refills, Maintenance, 11/19/20 13:50:00 EST, REC Powder, [id number], Partial [...] 1 Refills, Maintenance, 11/05/20 17:59:00 EST, Tablet, [facility]/pharmacy #[id number], Partial fill upon patient request if the prescription is for a schedule II opioid drug., 173, cm, 11/05/20 17:02:00 EST,... Start Date: 11/05/20 Status: Ordered Problem List Condition Effective Dates Status Health Status Inform ant Abdominal pain(Confirmed) Active Acne(Confirmed) Active Asthma(Confirmed) Active Intermittent Explosive Disorder(Confirmed) 1 Active Irritable bowel(Confirmed) Active Hepatic cyst, right lobe(Confirmed) 2 01/27/14 Active [facility] 2Measures 2.4 x 1.9 x 1.7 cm and contains peripheral calcification along its posterior medial aspect Social History Social History Type Response Smoking Status Former smoker, quit more than 30 days ago entered on: 09/21/18 Sex
--- OUTSIDE RECORDS SUMMARY | 2024-06-05 13:24 | XMS_ITS | Continuity of Care Document ---
Author Organization [facility] Address [address] [place] [address]- Care Team Providers Care Tank Inspector Name Role Phone Sanjana KAHN, Natalee Rolon Primary Care Physic brian [place] [facility] [place] - 04/26/20 [facility] [address] [place] [address]- [facility] Allergies, Adverse Reactions, Alerts Substance Reaction Severity [...] 12:58:17 EDT, Aerosol, Route to Pharmacy Electronically, [id number], [facility]/pharmacy #[id number] Start Date: 06/20/19 Stop Date: 06/27/19 Status: Ordered ceftriaxone 250 mg injectable powder for injection = 250 mg, Intramuscular, Once, Lot #: [id number] Exp: 09/2020, # 1 Doses, 0 Refills, Soft Stop, 03/04/19 11:49:13 EDT Start Date: 03/04/19 Status: Ordered docusate sodium 100 mg oral capsule 100 mg, 1, capsule, By Mouth, 2 times a day, PRN, # 20 capsule, Refills 0, Tot. Refills 0, Maintenance, for constipation, 04/03/20 13:10:00 EDT, Route to Pharmacy Electronically, [facility]/pharmacy #[id number], 173, cm, 03/29/20 18:07:00 EDT, Height, [...] Refills, Maintenance, 04/21/20 15:34:00 EDT, REC Powder, [facility]/pharmacy #[id number], 17 Gm By Mouth Daily,PRN:Constipation,Instr:dissolve in water before taking, 173, cm,... Start Date: 04/21/20 Status: Ordered ondansetron 4 mg oral tablet, disintegrating 1 tablet = 4 mg, By Mouth, Every 8 hours, PRN as needed for nausea/vomiting, # 9 tablet, 0 Refills,Maintenance, 03/29/20 21:46:00 EDT, DIS Tablet, [facility]/pharmacy #[id number], 173, cm, 03/29/20 18:07:00 EDT,Height, [...]
--- OUTSIDE RECORDS SUMMARY | 2024-06-05 13:24 | XMS_ITS | Continuity of Care Document ---
Author Organization [facility] Address [address] [place] [address]- Care Team Providers Care License Issuer Name Role Phone Sanjana KAHN, Natalee Rolon Primary Care Physic brain [facility] Date[facility]s): 02/26/20 - 03/27/20 [facility] [address] [place] [address]- [facility] Attending Physician: Admtr, Vanessa Admitting Physician: Admtr, Vanessa Referring Physician: Admtr, Ar8 Allergies, Adverse Reactions, [...] 12:58:17 EDT, Aerosol, Route to Pharmacy Electronically, [id number], [facility]/pharmacy #[id number] Start Date: 06/20/19 Stop Date: 06/27/19 Status: Ordered ceftriaxone 250 mg injectable powder for injection = 250 mg, Intramuscular, Once, Lot #: [id number] Exp: 09/2020, # 1 Doses, 0 Refills, [...] EDT, Tablet Start Date: 06/20/19 Status: Ordered Problem List Condition Effective Dates [...]
--- OUTSIDE RECORDS SUMMARY | 2024-06-05 13:24 | XMS_ITS | Continuity of Care Document ---
Author Organization [facility] Address [address] [place] [address]- Care Team Providers Care Waterproofing Supervisor Name Role Phone Zuri Velázquez MD Primary Care Physician [phone] Encounter [facility] [place] Date(s): 02/20/23 - 03/22/23 [facility] [address] [place], [place] [address] Allergies, Adverse Reactions, Alerts No [...] 02/23/23 10:04:00 EDT, Route to Pharmacy Electronically, [facility]/pharmacy #[id number], Partial fill upon pat... Start Date: 02/23/23 [...] Team Personnel Name: Zuri Velázquez MD Position: [facility] Resident Member Role: PCP Address: Address: [address] [place] [address] [place] [address]- Care Team Related Persons Name: NADER CHAVEZ Address: home [address] [place] [address] Name: DIONTE HARRELL Address: home [address] [place] [address] Name: KRISHNA PA Address: [address] [place] [address]
--- OUTSIDE RECORDS SUMMARY | 2024-06-05 13:24 | XMS_ITS | Continuity of Care Document ---
Author Organization [facility] Address [address] [place] [address]- Care Team Providers Care Construction Supervisor/Carpenter Name Role Phone Zuri Velázquez MD Primary Care Physician Encounter [facility] [place] Date(s): 09/28/23 - 10/28/23 [facility] [address] [place], [place] [address] Allergies, Adverse Reactions, Alerts No [...] Refills, Maintenance, 04/10/23 16:04:00 EDT, Cream, [id number], Partial fill upon patient request if the prescription is for a schedule II opioid drug., 1 application Topically 2 times a day,... Start Date: 04/10/23 Status: Ordered ipratropium nasal 21 mcg/inh spray See Instructions, PRN Nasal Congestion, 1 spray each nostril BID, # 1 each, 4 Refills, Maintenance,06/06/23 13:45:00 EDT, [facility]/pharmacy #[id number], Partial fill upon patient request if the prescription isfor a schedule II opioid drug., 1 spray each nostri... Start Date: 06/06/23 Status: Ordered meloxicam 7.5 mg oral tablet 1 tablet = 7.5 mg, By Mouth, Daily, prn pain, take with food, # 30 tablet, 1 Refills, Maintenance, 06/13/23 16:51:00 EDT, Tablet, [facility]/pharmacy #[id number], Partial fill upon patient request if the prescription is for a schedule II opioid drug., 173, cm, 10/... Start Date: 06/13/23 Status: Ordered nortriptyline 10 mg oral capsule 10 mg, 1, capsule, By Mouth, Daily at bedtime, for 30 days, # 30 capsule, Refills 1, Tot. Refills 1, Acute 12/04/23 15:11:00 EDT, 10/05/23 15:11:00 EST, [id number] Partial fill upon patient request if the pre... Start Date: 10/05/23 Stop Date: 12/04/23 Status: Ordered [place] 0.65% nasal spray 2 sprays, Nares, Both, 4 times a day, # 1 each, 5 Refills, Maintenance, 06/13/23 16:48:00 EDT, [facility]/pharmacy #[id number], Partial fill upon [...] 06/13/23 16:46:00 EDT, Route to Pharmacy Electronically, [facility]/pharmacy #[id number], Partial fill upon patient request if the prescription is for a schedule II opioid . Start Date: 06/13/23 Status: Ordered Readi-Cat 2 [...] 15:49:00 EST, Aerosol, Route to Pharmacy Electronically, [id number], [facility]/pharmacy #[id number], 173, cm, 07/21/23 14:13:00 EST, Height [...] S Resident Member Role: PCP Address: Address: [address] [place] [address] [place] [address]- Care Team Related Persons Name: NADER CHAVEZ Address: [address] [place] [address] Name: DIONTE HARRELL Address: home [address] [place] [address] Name: KRISHNA PA Address: [address] [place] [address]
--- OUTSIDE RECORDS SUMMARY | 2024-06-05 13:24 | XMS_ITS | Continuity of Care Document ---
Author Organization [facility] Address [address] [place] [address]- Care Team Providers Care Grapple Operator Name Role Phone Zuri Velázquez MD Primary Care Physician [phone] [place] [facility] [place] 11/08[place]22 - 01/19/23 [facility] [address] [address] Attending Physician: Rony Choudhary MD Admitting Physician: Rony Choudhary MD Referring Physician: Zuri Velázquez MD Allergies, Adverse Reactions, Alerts No Known [...] 9:48:00 EST, Route to Pharmacy Electronically, [facility]/pharmacy #[id number], Partial fill upon patientrequest if the prescription [...] Refills, Soft Stop, 12/12/22 15:40:00 EDT, [facility]/pharmacy #[id number], Partial fill upon patient request if the [...] Team Personnel Name: Zuri Velázquez MD Position: [facility] Resident Member Role: PCP Address: Address: [address] [place] [address] [place] [address]- Care Team Related Persons Name: NADER CHAVEZ Address: home [address] [place] [address] Name: DIONTE HARRELL Address: home [address] [place] [address] Name: KRISHNA PA Address: [address] [place] [address]
--- OUTSIDE RECORDS SUMMARY | 2024-06-05 13:24 | XMS_ITS | Continuity of Care Document ---
Author Organization [facility] Address [address] [place] [address]- Care Team Providers Care Business Development Name Role Phone Zuri Velázquez MD Primary Care Physician [facility]23 - 02/01/23 [facility] [address] [place] [id number] Allergies, Adverse Reactions, Alerts No Known Allergies Immunizations Given and Recorded Vaccine Date Status Refusal Reason influenza virus vaccine, inactivated 06/08/20 Give n influenza virus vaccine, inactivated 11/01/19 Give n influenza virus vaccine, inactivated 07/13/17 Give n influenza virus vaccine, inactivated 09/24/13 Give n tetanus/diphtheria/pertussis, acel(Tdap) 02/07/18 Given influenza virus vaccine, live 1 07/27/12 Given 1Admin Note: VIS DATED 02/27/2012 GIVEN. Medications Bactrim DS 800 mg-160 mg oral tablet 1 tablet, By Mouth, 2 times a day, for 10 days, # 20 tablet, 0 Refills, Acute 02/10/23 15:29:00 EDT, 01/31/23 15:29:00 EDT, Tablet, [id number], Partial fill upon patient request if the prescription is for a schedule II opioid drug., 1 tablet B... Start Date: 01/31/23 Stop Date: 02/10/23 Status: Ordered nortriptyline 25 mg oral capsule 25 mg, 1, capsule, By Mouth, Daily at bedtime, dose increased, take daily for migraine prevention, # 30 capsule, Refills 11, Tot. Refills 11, Maintenance, 01/31/23 15:20:00 EDT, Route to Pharmacy Electronically, [id number], Partial fill upon p... Start Date: 01/31/23 [...] Refills, Maintenance, 01/31/23 15:22:00 EDT, Tablet, [id number], Partial fill upon [...] S Resident Member Role: PCP Address: Address: [address] [place] [address] [place] [address]- Care Team Related Persons Name: NADER CHAVEZ Address: home [address] [place] [address] Name: DIONTE HARRELL Address: home [address] [place] [address] Name: KRISHNA PA Address: home [address] [place] [address]
--- OUTSIDE RECORDS SUMMARY | 2024-06-05 13:24 | XMS_ITS | Continuity of Care Document ---
Author Organization [facility] Address [address] [place] [address]- Care Team Providers Care Laboratory Mechanic Helper Name Role Phone Sanjana KAHN, Natalee Rolon Primary Care Physic brian [facility] Date[facility]): 09/17/20 - 10/30/20 [facility] [address] [place] [address]- Attending Physician: Randy Zuñiga MD Admitting Physician: [...] 12:58:17 EDT, Aerosol, Route to Pharmacy Electronically, [id number], [facility]/pharmacy #[id number] Start Date: 06/20/19 Stop Date: 06/27/19 Status: Ordered amLODIPine 5 mg oral tablet 5 mg, 1, tablet, By Mouth, Daily, # 30 tablet, Refills 3, Tot. Refills 3, Maintenance, 07/16/20 13:50:00 EST, Route to Pharmacy Electronically, [facility]/pharmacy #[id number], Partial fill upon patient request, 173, cm, 06/08/20 10:54:00 EDT, Height, 97, kg, 080... Start Date: 07/16/20 Status: Ordered Colace sodium 100 mg oral capsule 100 mg, 1, capsule, By Mouth, 2 times a day, PRN, # 180 capsule, Refills 0, Tot. Refills 0, Maintenance, for constipation, 07/16/20 15:56:00 EST, Route to Pharmacy Electronically, [id number] fill upon patient request, 173, cm, ... Start Date: 07/16/20 Status: Ordered dicyclomine 10 mg oral capsule 1 capsule = 10 mg, By Mouth, 4 times a day, # 56 capsule, 0 Refills, Maintenance, 07/16/20 13:50:00EST, Capsule, [facility]/pharmacy #[id number], Partial fill upon patient request, 173, cm, 06/08/20 10:54:00 EDT, Height, 97, kg, 03/29/20 18:07:00 EDT, Dry Weight Start Date: 07/16/20 Stop Date: 07/30/20 Status: Ordered famotidine 20 mg oral tablet 20 mg, 1, tablet, By Mouth, Daily, # 90 tablet, Refills 11, Tot. Refills 11, Maintenance, 10/28/20 14:31:00 EST, Route to Pharmacy Electronically, [facility]/pharmacy #[id number], 173, cm, 10/28/20 13:50:00 EST, Height, 97, kg, 03/29/20 18:07:00 EDT, Dry Weight Start Date: 10/28/20 Stop Date: 10/13/23 Status: Ordered MiraLax oral powder for reconstitution = 17 Gm, By Mouth, Daily, dissolve in water before taking, # 1,530 Gm, 0 Refills, Maintenance, 07/16/20 13:50:00 EST, REC Powder, [facility]/pharmacy #[id number], Partial fill upon patient request, 17 Gm By MouthDaily,Instr:dissolve in water before taking, 173, c... Start Date: 07/16/20 Status: Ordered Problem List Condition Effective Dates Status Health Status Inform ant Abdominal pain(Confirmed) Active Acne(Confirmed) Active Asthma(Confirmed) Active Intermittent Explosive Disorder(Confirmed) 1 Active Irritable bowel(Confirmed) Active Hepatic cyst, right lobe(Confirmed) 2 01/27/14 [facility] 2Measures 2.4 x 1.9 x 1.7 cm and contains peripheral calcification along its posterior medial aspect Social History Social History Type Response Smoking Status Former smoker, quit more than 30 days ago entered on: 09/21/18 Sex
--- OUTSIDE RECORDS SUMMARY | 2024-06-05 13:24 | XMS_ITS | Continuity of Care Document ---
Author Organization [facility] Address [address] [place] [address]- Care Team Providers Care Heel Seam Rubber Name Role Phone Zuri Velázquez MD Primary Care Physician Encounter [facility] Date(s): 06/15/23 - 07/19/[address] [address]- Attending Physician: Kadie Vasquez NP Admitting Physician: Christina WONG, Kadie Referring Physician: Kadie Vasquez NP Allergies, Adverse [...] 1 Refills, Maintenance, 06/13/23 16:51:00 EDT, Tablet, [facility]/pharmacy #[id number], Partial fill upon patient request if the prescription is for a schedule II opioid drug., 173, cm, 10/... Start Date: 06/13/23 Status: Ordered nortriptyline 50 mg oral capsule 50 mg, 1, capsule, By Mouth, Daily at bedtime, dose increased, take daily for migraine prevention, # 90 capsule, Refills 1, Tot. Refills 1, Maintenance, 04/04/23 15:00:00 EDT, Route to Pharmacy Electronically, [facility]/pharmacy #[id number], Partial fill upon pat... Start Date: 04/04/23 Status: Ordered [place] 0.65% nasal spray 2 sprays, Nares, Both, 4 times a day, # 1 each, 5 Refills, Maintenance, 06/13/23 16:48:00 EDT, [facility]/pharmacy #[id number], Partial fill upon patient request if the prescription is for a schedule II opioid drug., 2 sprays Nares, Both 4 times a day, 173, cm, 10... Start Date: 06/13/23 Status: Ordered propranolol 60 mg oral capsule, extended release 60 mg, 1, capsule, By Mouth, Daily, # 30 capsule, Refills 5, Tot. Refills 5, Maintenance, 06/13/23 16:46:00 EDT, Route to Pharmacy Electronically, [facility]/pharmacy #[id number], Partial fill upon patient request if [...] Team Personnel Name: Zuri Velázquez MD Position: [facility] Resident Member Role: PCP Address: Address: [address] [place] [address] [place] [address]- [place] Care Team Related Persons Name: NADER CHAVEZ Address: home [address] [place] [address] Name: DIONTE HARRELL Address: home [address] [place] [address] Name: KRISHNA PA Address: home [address] [place] [address]
--- OUTSIDE RECORDS SUMMARY | 2024-06-05 13:24 | XMS_ITS | Continuity of Care Document ---
Author Organization [facility] Address [address] [place] [address]- Care Team Providers Care Corrosion Control Specialist Name Role Phone Sanjana KAHN, Natalee Rolon Primary Care Physic brian [facility]): 10/30/19 - 11/30/19 [facility] [address] [place] [address]- [facility] Attending Physician: Not on Staff, Attending MD Allergies, Adverse Reactions, Alerts Substance Reaction [...] 12:58:17 EDT, Aerosol, Route to Pharmacy Electronically, [id number], [facility]/pharmacy #[id number] Start Date: 06/20/19 Stop Date: 06/27/19 Status: Ordered ceftriaxone 250 mg injectable powder for injection = 250 mg, Intramuscular, Once, Lot #: [id number] Exp: 09/2020, # 1 Doses, 0 Refills, [...]
--- OUTSIDE RECORDS SUMMARY | 2024-06-05 13:24 | XMS_ITS | Continuity of Care Document ---
Author Organization [facility] Address [address] [place] [address]- Care Team Providers Care Tire Spotter Name Role Phone Zuri Velázquez MD Primary Care Physician [phone] Encounter [facility] Date(s): 01/31/23 - 03/02/23 [facility] [address] [place] [id number] Attending Physician: Kadie Vasquez NP Admitting Physician: Kadie Vasquez NP Allergies, Adverse Reactions, [...] 02/23/23 10:04:00 EDT, Route to Pharmacy Electronically, [facility]/pharmacy #[id number], Partial fill upon pat... Start Date: 02/23/23 [...] Team Personnel Name: Zuri Velázquez MD Position: [facility] Resident Member Role: PCP Address: Address: [address] [place] [address] [place] [address]- [place] Care Team Related Persons Name: NADER CHAVEZ Address: home [address] [place] [address] Name: DIONTE HARRELL Address: home [address] [place] [address] Name: KRISHNA PA Address: home [address] [place] [address]
--- OUTSIDE RECORDS SUMMARY | 2024-06-05 13:24 | XMS_ITS | Continuity of Care Document ---
Author Organization [facility] Address [address] [place] [address]- Care Team Providers Care Tank Truck Loader Name Role Phone Zuri Velázquez MD Primary Care Physician [phone] Encounter [facility] Date(s): 02/23/23 - 03/25/23 [facility] [address] [place], [place] [address] Allergies, Adverse Reactions, Alerts No [...] 02/23/23 10:04:00 EDT, Route to Pharmacy Electronically, [facility]/pharmacy #[id number], Partial fill upon pat... Start Date: 02/23/23 [...] Team Personnel Name: Zuri Velázquez MD Position: [facility] Resident Member Role: PCP Address: Address: [address] [place] [address] [place] [address]- Care Team Related Persons Name: NADER CHAVEZ Address: home [address] [place] [address] Name: DIONTE HARRELL Address: home [address] [place] [address] Name: KRISHNA PA Address: home [address] [place] [address]
--- OUTSIDE RECORDS SUMMARY | 2024-06-05 13:24 | XMS_ITS | Continuity of Care Document ---
Author Organization [facility] Address [address] [place] [address]- Care Team Providers Care Hog Raiser Name Role Phone Zuri Velázquez MD Primary Care Physician [phone] [facility]counter [facility] Date[facility]s): 12/12/22 - 01/11/23 [facility] [address] [place] [address] Allergies, Adverse Reactions, Alerts No [...] 9:48:00 EST, Route to Pharmacy Electronically, [facility]/pharmacy #[id number], Partial fill upon patientrequest if the prescription [...] 2 Refills, Soft Stop, 12/12/22 15:40:00 EDT, [facility]/pharmacy #[id number], Partial fill upon patient request if the [...] Team Personnel Name: Zuri Velázquez MD Position: [facility] Resident Member Role: PCP Address: Address: [address] [place] [address] [place] [address]- Care Team Related Persons Name: NADER CHAVEZ Address: home [address] [place] [address] Name: DIONTE HARRELL Address: home [address] [place] [address] Name: KRISHNA PA Address: home [address] [place] [address]
--- OUTSIDE RECORDS SUMMARY | 2024-06-05 13:24 | XMS_ITS | Continuity of Care Document ---
Author Organization [facility] Address [address] [place] [address]- Care Team Providers Care Storyboard Artist Name Role Phone Sanjana KAHN, Natalee Rolon Primary Care Physic brian [facility] Date(s): 09/28/21 - 10/28/21 [facility] [address] [place] [address]- Attending Physician: Vanessa Fontaine Admitting Physician: AdmVanessa mathur Referring Physician: AdmtrVanessa Allergies, Adverse Reactions, Alerts No Known Allergies [...] 12:58:17 EDT, Aerosol, Route to Pharmacy Electronically, [id number], [facility]/pharmacy #[id number] Start Date: 06/20/19 Stop Date: 06/27/19 Status: Ordered amLODIPine 5 mg oral tablet 5 mg, 1, tablet, By Mouth, Daily, # 30 tablet, Refills 3, Tot. Refills 3, Maintenance, 07/16/20 13:50:00 EST, Route to Pharmacy Electronically, [facility]/pharmacy #[id number], Partial fill upon patient request, 173, cm, 06/08/20 10:54:00 EDT, Height, 97, kg, ... Start Date: 07/16/20 Status: Ordered Blood Pressure Monitor Blood Pressure Monitor, See Instructions, # 1 each, Refills 0, Tot. Refills 0, Maintenance, Blood Pressure Monitor Check blood pressure once a day at least one hour after taking medications [id number] PO TID Dx: I15.9 Duration: Lifetime, 11/11... Start Date: 11/11/20 Status: Ordered Colace sodium 100 mg oral capsule 100 mg, 1, capsule, By Mouth, 2 times a day, PRN, # 180 capsule, Refills 0, Tot. Refills 0, Maintenance, for constipation, 07/16/20 15:56:00 EST, Route to Pharmacy Electronically, [facility]/pharmacy #[id number],Partial fill upon patient request, 173, cm, ... Start Date: 07/16/20 Status: Ordered dicyclomine 10 mg oral capsule 1 capsule = 10 mg, By Mouth, 4 times a day, # 56 capsule, 1 Refills, Maintenance, 11/03/20 13:15:00EST, Capsule, [facility]/pharmacy #[id number], Partial fill upon patient request, 173, cm, 11/03/20 12:57:00 EST, Height, 97, kg, 03/29/20 18:07:00 EDT, Dry Weight Start Date: 11/03/20 Stop Date: 12/01/20 Status: Ordered famotidine 20 mg oral tablet 20 mg, 1, tablet, By Mouth, 2 times a day, # 28 tablet, Refills 0, Tot. Refills 0, Maintenance, 09/10/21 7:39:00 EST, Route to Pharmacy Electronically, [facility]/pharmacy #[id number], Partial fill upon patient request if the prescription is for a schedule II opio... Start Date: 09/10/21 Stop Date: 09/24/21 Status: Ordered MiraLax oral powder for reconstitution = 17 Gm, By Mouth, Daily, dissolve in water before taking, # 1,530 Gm, 0 Refills, Maintenance, 07/16/20 13:50:00 EST, REC Powder, [facility]/pharmacy #[id number], Partial fill upon patient request, 17 Gm By MouthDaily,Instr:dissolve in water before taking, 173, c... Start Date: 07/16/20 Status: Ordered ondansetron 4 mg oral tablet, disintegrating 1 tablet = 4 mg, By Mouth, Every 8 hours, PRN as needed for nausea/vomiting, # 9 tablet, 0 Refills,Maintenance, 11/03/20 13:15:00 EST, DIS Tablet, [facility]/pharmacy #[id number], 173, cm, 11/03/20 12:57:00 EST,Height, 97, kg, 03/29/20 18:07:00 EDT, Dry Weight Start Date: 11/03/20 Stop Date: 11/06/20 Status: Ordered verapamil 40 mg oral tablet 1 tablet = 40 mg, By Mouth, 3 times a day, # 90 tablet, 1 Refills, Maintenance, 11/05/20 17:59:00 EST, Tablet, [facility]/pharmacy #[id number], Partial fill upon patient request if the prescription is for a schedule II opioid drug., 173, cm, 11/05/20 17:02:00 EST,... Start Date: 11/05/20 Status: Ordered Problem List Condition Effective Dates Status Health Status Inform ant Abdominal pain(Confirmed) Active Acne(Confirmed) Active Asthma(Confirmed) Active Intermittent Explosive Disorder(Confirmed) 1 Active Irritable bowel(Confirmed) Active Hepatic cyst, right lobe(Confirmed) 2 01/27/14 [facility] 2Measures 2.4 x 1.9 x 1.7 cm and contains peripheral calcification along its posterior medial aspect Social History Social History Type Response Smoking Status Former smoker, quit more than 30 days ago entered on: 09/21/18 Sex
--- OUTSIDE RECORDS SUMMARY | 2024-06-05 13:24 | XMS_ITS | Continuity of Care Document ---
Author Organization [facility] Address [address] [place] [address]- Care Team Providers Care Slip Sheeter Name Role Phone Natalee Allan MD Primary Care Physic brian Encounter [facility] Date(s): 06/01/21 - 07/02/21 [facility] [address] [place] [address]- [place] Attending Physician: Not on Staff, Attending MD Referring Physician: Natalee Allan MD Allergies, Adverse Reactions, Alerts Substance Reaction [...] 12:58:17 EDT, Aerosol, Route to Pharmacy Electronically, [id number], [facility]/pharmacy #[id number] Start Date: 06/20/19 Stop Date: 06/27/19 Status: Ordered amLODIPine 5 mg oral tablet 5 mg, 1, tablet, By Mouth, Daily, # 30 tablet, Refills 3, Tot. Refills 3, Maintenance, 07/16/20 13:50:00 EST, Route to Pharmacy Electronically, [facility]/pharmacy #[id number], Partial fill upon patient request, 173, cm, 06/08/20 10:54:00 EDT, Height, 97, kg, 0... Start Date: 07/16/20 Status: Ordered Blood Pressure Monitor Blood Pressure Monitor, See Instructions, # 1 each, Refills 0, Tot. Refills 0, Maintenance, Blood Pressure Monitor Check blood pressure once a day at least one hour after taking medications [id number] PO TID Dx: I15.9 Duration: Lifetime, 11/11... Start Date: 11/11/20 Status: Ordered Colace sodium 100 mg oral capsule 100 mg, 1, capsule, By Mouth, 2 times a day, PRN, # 180 capsule, Refills 0, Tot. Refills 0, Maintenance, for constipation, 07/16/20 15:56:00 EST, Route to Pharmacy Electronically, [facility]/pharmacy #[id number],Partial fill upon patient request, 173, cm, ... Start Date: 07/16/20 Status: Ordered dicyclomine 10 mg oral capsule 1 capsule = 10 mg, By Mouth, 4 times a day, # 56 capsule, 1 Refills, Maintenance, 11/03/20 13:15:00EST, Capsule, [facility]/pharmacy #[id number], Partial fill upon patient request, 173, cm, 11/03/20 12:57:00 EST, Height, 97, kg, 03/29/20 18:07:00 EDT, Dry Weight Start Date: 11/03/20 Stop Date: 12/01/20 Status: Ordered famotidine 20 mg oral tablet 20 mg, 1, tablet, By Mouth, Daily, # 90 tablet, Refills 11, Tot. Refills 11, Maintenance, 10/28/20 14:31:00 EST, Route to Pharmacy Electronically, [facility]/pharmacy #[id number], 173, cm, 10/28/20 13:50:00 EST, Height, [...] 1 Refills, Maintenance, 11/05/20 17:59:00 EST, Tablet, [facility]/pharmacy #[id number], Partial fill upon patient request if the prescription is for a schedule II opioid drug., 173, cm, 11/05/20 17:02:00 EST,... Start Date: 11/05/20 Status: Ordered Problem List Condition Effective Dates Status Health Status Inform ant Abdominal pain(Confirmed) Active Acne(Confirmed) Active Asthma(Confirmed) Active Intermittent Explosive Disorder(Confirmed) 1 Active Irritable bowel(Confirmed) Active Hepatic cyst, right lobe(Confirmed) 2 01/27/[address] [place] [address] Center 2Measures 2.4 x 1.9 x 1.7 cm and contains peripheral calcification along its posterior medial aspect Social History Social History Type Response Smoking Status Former smoker, quit more than 30 days ago entered on: 09/21/18 Sex
--- OUTSIDE RECORDS SUMMARY | 2024-06-05 13:25 | XMS_ITS | Continuity of Care Document ---
Author Organization [facility] Address [address] [place] [address]- Care Team Providers Care Anglesmith Name Role Phone Zuri Velázquez MD Primary Care Physician [phone] [place] [facility] Date(s): 07/19/23 - 08/18/23 [facility] [address] [place], [place] [address] Allergies, Adverse Reactions, Alerts No [...] 1 each, 4 Refills, Maintenance,06/06/23 13:45:00 EDT, [facility]/pharmacy #[id number], Partial fill upon patient request if the prescription isfor a schedule II opioid drug., 1 spray each nostri... Start Date: 06/06/23 Status: Ordered meloxicam 7.5 mg oral tablet 1 tablet = 7.5 mg, By Mouth, Daily, prn pain, take with food, # 30 tablet, 1 Refills, Maintenance, 06/13/23 16:51:00 EDT, Tablet, [facility]/pharmacy #[id number], Partial fill upon patient request if the prescription is for a schedule II opioid drug., 173, cm, 10/... Start Date: 06/13/23 Status: Ordered nortriptyline 50 mg oral capsule 50 mg, 1, capsule, By Mouth, Daily at bedtime, dose increased, take daily for migraine prevention, # 90 capsule, Refills 1, Tot. Refills 1, Maintenance, 04/04/23 15:00:00 EDT, Route to Pharmacy Electronically, [facility]/pharmacy #[id number], Partial fill upon pat... Start Date: 04/04/23 Status: Ordered [place] 0.65% nasal spray 2 sprays, Nares, Both, 4 times a day, # 1 each, 5 Refills, Maintenance, 06/13/23 16:48:00 EDT, [facility]/pharmacy #[id number], Partial fill upon patient [...] 06/13/23 16:46:00 EDT, Route to Pharmacy Electronically, [facility]/pharmacy #[id number], Partial fill upon patient [...] 15:49:00 EST, Aerosol, Route to Pharmacy Electronically, [id number], [facility]/pharmacy #[id number], 173, cm, 07/21/23 14:13:00 [...] S Resident Member Role: PCP Address: Address: [address] [place] [address] [place] [address]- Care Team Related Persons Name: SCOTT NADER Address: home [address] [place] [address] Name: DIONTE HARRELL Address: home [address] [place] [address] Name: KRISHNA PA Address: [address] [place] [address]
--- OUTSIDE RECORDS SUMMARY | 2024-06-05 13:25 | XMS_ITS | Continuity of Care Document ---
Author Organization [facility] Address [address] [place] [address]- Care Team Providers Care Classroom Instructor Name Role Phone Zuri Velázquez MD Primary Care Physician [phone] En[place] [id number] Date(s): 06/07/23 - 07/27/[address] [address]- Attending Physician: Rony Choudhary MD Admitting Physician: Rony Choudhary MD Referring Physician: Rony Choudhary MD Allergies, Adverse Reactions, Alerts No Known [...] 1 each, 4 Refills, Maintenance,06/06/23 13:45:00 EDT, [facility]/pharmacy #[id number], Partial fill upon patient request if the prescription isfor a schedule II opioid drug., 1 spray each nostri... Start Date: 06/06/23 Status: Ordered meloxicam 7.5 mg oral tablet 1 tablet = 7.5 mg, By Mouth, Daily, prn pain, take with food, # 30 tablet, 1 Refills, Maintenance, 06/13/23 16:51:00 EDT, Tablet, [facility]/pharmacy #[id number], Partial fill upon patient request if the prescription is for a schedule II opioid drug., 173, cm, 10/... Start Date: 06/13/23 Status: Ordered nortriptyline 50 mg oral capsule 50 mg, 1, capsule, By Mouth, Daily at bedtime, dose increased, take daily for migraine prevention, # 90 capsule, Refills 1, Tot. Refills 1, Maintenance, 04/04/23 15:00:00 EDT, Route to Pharmacy Electronically, [facility]/pharmacy #[id number], Partial fill upon pat... Start Date: 04/04/23 Status: Ordered [place] 0.65% nasal spray 2 sprays, Nares, Both, 4 times a day, # 1 each, 5 Refills, Maintenance, 06/13/23 16:48:00 EDT, [facility]/pharmacy #[id number], Partial fill upon patient request [...] 06/13/23 16:46:00 EDT, Route to Pharmacy Electronically, [facility]/pharmacy #[id number], Partial fill upon patient request [...] 15:49:00 EST, Aerosol, Route to Pharmacy Electronically, [id number], [facility]/pharmacy #[id number], 173, cm, 07/21/23 14:13:00 EST, [...] S Resident Member Role: PCP Address: Address: [address] [place] [address] [place] [address]- Care Team Related Persons Name: NADER CHAVEZ Address: [address] [place] [address] Name: DIONTE HARRELL Address: [address] [place] [address] Name: KRISHNA PA Address: [address] [place] [id number]
--- OUTSIDE RECORDS SUMMARY | 2024-06-05 13:25 | XMS_ITS | Continuity of Care Document ---
Author Organization [facility] Address [address] [place] [address]- Care Team Providers Care Supervisor Fertilizer Name Role Phone Zuri Velázquez MD Primary Care Physician [facility] [facility] [place] 08/10/23 - 09/11/23 [facility] [address] [place], [place] [address] Attending Physician: Randy Zuñiga MD Admitting Physician: [...] 1 Refills, Maintenance, 06/13/23 16:51:00 EDT, Tablet, [facility]/pharmacy #[id number], Partial fill upon [...] 04/04/23 15:00:00 EDT, Route to Pharmacy Electronically, [facility]/pharmacy #[id number], Partial fill upon pat... Start Date: 04/04/23 Status: Ordered [place] 0.65% nasal spray 2 sprays, Nares, Both, 4 times a day, # 1 each, 5 Refills, Maintenance, 06/13/23 16:48:00 EDT, [facility]/pharmacy #[id number], Partial fill upon [...] 06/13/23 16:46:00 EDT, Route to Pharmacy Electronically, [facility]/pharmacy #[id number], Partial fill upon [...] 15:49:00 EST, Aerosol, Route to Pharmacy Electronically, [id number], [facility]/pharmacy #[id number], 173, cm, 07/21/23 [...] S Resident Member Role: PCP Address: Address: [address] [place] [address] [place] [address]- Care Team Related Persons Name: NADER CHAVEZ Address: home [address] [place] [address] Name: DIONTE HARRELL Address: home [address] [place] [address] Name: KRISHNA PA Address: home [address] [place] [address]
--- OUTSIDE RECORDS SUMMARY | 2024-06-05 13:25 | XMS_ITS | Continuity of Care Document ---
Author Organization [facility] Address [address] [place] [address]- Care Team Providers Care Hand Braille Transcriber Name Role Phone Sanjana KAHN, Natalee Rolon Primary Care Physic brian Encounter [facility] Date(s): 01/08/21 - 02/07/21 [facility] [address] [place] [id number] Attending Physician: Vanessa Fontaine Admitting Physician: AdmVanessa mathur Referring Physician: AdmtrVanessa Allergies, Adverse Reactions, Alerts Substance Reaction Severity [...] 12:58:17 EDT, Aerosol, Route to Pharmacy Electronically, [id number], [facility]/pharmacy #[id number] Start Date: 06/20/19 Stop Date: 06/27/19 Status: Ordered amLODIPine 5 mg oral tablet 5 mg, 1, tablet, By Mouth, Daily, # 30 tablet, Refills 3, Tot. Refills 3, Maintenance, 07/16/20 13:50:00 EST, Route to Pharmacy Electronically, [facility]/pharmacy #[id number], Partial fill upon patient request, 173, cm, 06/08/20 10:54:00 EDT, Height, 97, kg, 080... Start Date: 07/16/20 Status: Ordered Blood Pressure Monitor Blood Pressure Monitor, See Instructions, # 1 each, Refills 0, Tot. Refills 0, Maintenance, Blood Pressure Monitor Check blood pressure once a day at least one hour after taking medications [id number] PO TID Dx: I15.9 Duration: Lifetime, 11/11... Start Date: 11/11/20 Status: Ordered Colace sodium 100 mg oral capsule 100 mg, 1, capsule, By Mouth, 2 times a day, PRN, # 180 capsule, Refills 0, Tot. Refills 0, Maintenance, for constipation, 07/16/20 15:56:00 EST, Route to Pharmacy Electronically, [facility]/pharmacy #[id number],Partial fill upon patient request, 173, cm, ... Start Date: 07/16/20 Status: Ordered dicyclomine 10 mg oral capsule 1 capsule = 10 mg, By Mouth, 4 times a day, # 56 capsule, 1 Refills, Maintenance, 11/03/20 13:15:00EST, Capsule, [facility]/pharmacy #[id number], Partial fill upon patient request, 173, cm, 11/03/20 12:57:00 EST, Height, 97, kg, 03/29/20 18:07:00 EDT, Dry Weight Start Date: 11/03/20 Stop Date: 12/01/20 Status: Ordered famotidine 20 mg oral tablet 20 mg, 1, tablet, By Mouth, Daily, # 90 tablet, Refills 11, Tot. Refills 11, Maintenance, 10/28/20 14:31:00 EST, Route to Pharmacy Electronically, [facility]/pharmacy #[id number], 173, cm, 10/28/20 13:50:00 EST, Height, [...] 1 Refills, Maintenance, 11/05/20 17:59:00 EST, Tablet, [facility]/pharmacy #[id number], Partial fill upon patient request if the prescription is for a schedule II opioid drug., 173, cm, 11/05/20 17:02:00 EST,... Start Date: 11/05/20 Status: Ordered Problem List Condition Effective Dates Status Health Status Inform ant Abdominal pain(Confirmed) Active Acne(Confirmed) Active Asthma(Confirmed) Active Intermittent Explosive Disorder(Confirmed) 1 Active Irritable bowel(Confirmed) Active Hepatic cyst, right lobe(Confirmed) 2 01/27/14 [facility] 2Measures 2.4 x 1.9 x 1.7 cm and contains peripheral calcification along its posterior medial aspect Social History Social History Type Response Smoking Status Former smoker, quit more than 30 days ago entered on: 09/21/18 Sex
--- OUTSIDE RECORDS SUMMARY | 2024-06-05 13:25 | XMS_ITS | Continuity of Care Document ---
Author Organization [facility] Adult [facility] Address [address] [place] [address]- Care Team Providers Care Architectural Modeler Name Role Phone Sanjana KAHN, Natalee Rolon Primary Care Physic brian [facility] Date[facility]s): 11/12/19 - 12/13/19 [facility] [address] [place] [id number]- [facility] Attending Physician: Not on Staff, Attending [...] 12:58:17 EDT, Aerosol, Route to Pharmacy Electronically, [id number], [facility]/pharmacy #[id number] Start Date: 06/20/19 Stop Date: 06/27/19 Status: Ordered ceftriaxone 250 mg injectable powder for injection = 250 mg, Intramuscular, Once, Lot #: [id number] Exp: 09/2020, # 1 Doses, 0 Refills, [...]
--- OUTSIDE RECORDS SUMMARY | 2024-06-05 13:25 | XMS_ITS | Continuity of Care Document ---
Author Organization [facility] Adult [facility] Address [address] [place] [address]- Care Team Providers Care Winter Intern Name Role Phone Sanjana KAHN, Natalee Rolon Primary Care Physic brian Encounter [facility] Date(s): 06/04/21 - 07/04/21 [facility] [address] [place] [address]- Attending Physician: Vanessa Fontaine Admitting Physician: Vanessa Fontaine Referring Physician: AdmtrVanessa Allergies, Adverse Reactions, Alerts [...] 12:58:17 EDT, Aerosol, Route to Pharmacy Electronically, [id number], [facility]/pharmacy #[id number] Start Date: 06/20/19 Stop Date: 06/27/19 Status: Ordered amLODIPine 5 mg oral tablet 5 mg, 1, tablet, By Mouth, Daily, # 30 tablet, Refills 3, Tot. Refills 3, Maintenance, 07/16/20 13:50:00 EST, Route to Pharmacy Electronically, [facility]/pharmacy #[id number], Partial fill upon patient request, 173, cm, 06/08/20 10:54:00 EDT, Height, 97, kg, 0... Start Date: 07/16/20 Status: Ordered Blood Pressure Monitor Blood Pressure Monitor, See Instructions, # 1 each, Refills 0, Tot. Refills 0, Maintenance, Blood Pressure Monitor Check blood pressure once a day at least one hour after taking medications [id number] PO TID Dx: I15.9 Duration: Lifetime, 11/11... Start Date: 11/11/20 Status: Ordered Colace sodium 100 mg oral capsule 100 mg, 1, capsule, By Mouth, 2 times a day, PRN, # 180 capsule, Refills 0, Tot. Refills 0, Maintenance, for constipation, 07/16/20 15:56:00 EST, Route to Pharmacy Electronically, [facility]/pharmacy #[id number],Partial fill upon patient request, 173, cm, ... Start Date: 07/16/20 Status: Ordered dicyclomine 10 mg oral capsule 1 capsule = 10 mg, By Mouth, 4 times a day, # 56 capsule, 1 Refills, Maintenance, 11/03/20 13:15:00EST, Capsule, [facility]/pharmacy #[id number], Partial fill upon patient request, 173, cm, 11/03/20 12:57:00 EST, Height, 97, kg, 03/29/20 18:07:00 EDT, Dry Weight Start Date: 11/03/20 Stop Date: 12/01/20 Status: Ordered famotidine 20 mg oral tablet 20 mg, 1, tablet, By Mouth, Daily, # 90 tablet, Refills 11, Tot. Refills 11, Maintenance, 10/28/20 14:31:00 EST, Route to Pharmacy Electronically, [facility]/pharmacy #[id number], 173, cm, 10/28/20 13:50:00 EST, [...] Refills, Maintenance, 11/05/20 17:59:00 EST, Tablet, [facility]/pharmacy #[id number], Partial fill upon patient request if the prescription is for a schedule II opioid drug., 173, cm, 11/05/20 17:02:00 EST,... Start Date: 11/05/20 Status: Ordered Problem List Condition Effective Dates Status Health Status Inform ant Abdominal pain(Confirmed) Active Acne(Confirmed) Active Asthma(Confirmed) Active Intermittent Explosive Disorder(Confirmed) 1 Active Irritable bowel(Confirmed) Active Hepatic cyst, right lobe(Confirmed) 2 01/27/14 [facility] 2Measures 2.4 x 1.9 x 1.7 cm and contains peripheral calcification along its posterior medial aspect Social History Social History Type Response Smoking Status Former smoker, quit more than 30 days ago entered on: 09/21/18 Sex
--- OUTSIDE RECORDS SUMMARY | 2024-06-05 13:25 | XMS_ITS | Continuity of Care Document ---
Author Organization [facility] Adult [facility] Address [address] [place] [address]- Care Team Providers Care General Merchandise Salesperson Name Role Phone Natalee Allan MD Primary Care Physic brian Encounter [facility] Date(s): 04/28/20 - 05/29/20 [facility] [address] [place] [address]- [facility] Attending Physician: Davis WONG, Kristine Horne Admitting Physician: Davis WONG, Kristine Horne Referring Physician: Natalee Allan MD Allergies, Adverse [...] 12:58:17 EDT, Aerosol, Route to Pharmacy Electronically, [id number], [facility]/pharmacy #[id number] Start Date: 06/20/19 Stop Date: 06/27/19 Status: Ordered amitriptyline 10 mg oral tablet 10 mg, 1, tablet, By Mouth, Daily at bedtime, # 30 tablet, Refills 0, Tot. Refills 0, Maintenance, 05/18/20 19:51:00 EDT, [id number] 173, cm, 04/29/20 16:50:00 EDT, Height, 97, kg, 03/29/20 18:07:00 EDT, Dry... Start Date: 05/18/20 Status: Ordered famotidine 20 mg oral tablet 20 mg, 1, tablet, By Mouth, Daily, # 90 tablet, Refills 11, Tot. Refills 11, Maintenance, 05/18/20 19:50:00 EDT, [id number] 173, cm, 04/29/20 16:50:00 EDT, Height, 97, kg, 03/29/20 18:07:00 EDT, Dry Weight Start Date: 05/18/20 Stop Date: 05/03/23 Status: Ordered Problem List Condition Effective Dates [...]
--- OUTSIDE RECORDS SUMMARY | 2024-06-05 13:25 | XMS_ITS | Continuity of Care Document ---
Author Organization [facility] Adult [facility] Address [address] [place] [address]- Care Team Providers Care Drapery Sewer Hand Name Role Phone Eber KAHN, Zuri Primary Care Physician [facility] Date(s): 03/01/23 - 03/31/23 [facility] Adult [facility] [address] [place], [place] [address] Allergies, Adverse Reactions, Alerts [...] 02/23/23 10:04:00 EDT, Route to Pharmacy Electronically, [facility]/pharmacy #[id number], Partial fill upon pat... Start Date: 02/23/23 [...] Team Personnel Name: Zuri Velázquez MD Position: [facility] Resident Member Role: PCP Address: Address: [address] [place] [address] [place] [address]- Care Team Related Persons Name: NADER CHAVEZ Address: home [address] [place] [address] Name: DIONTE HARRELL Address: home [address] [place] [address] Name: KRISHNA PA Address: [address] [place] [address]
--- OUTSIDE RECORDS SUMMARY | 2024-06-05 13:25 | XMS_ITS | Continuity of Care Document ---
Author Organization [facility] Adult [facility] Address [address] [place] [address]- Care Team Providers Care Car Examiner Name Role Phone Sanjana KAHN, Natalee Rolon Primary Care Physic brian [place] [facility] Date(s): 06/02/21 - 07/10/21 [facility] Adult [facility] [address] [place] [address]- Attending Physician: Davis WONG, Kristine Horne Admitting Physician: Davis WONG, Kristine Horne Allergies, Adverse Reactions, Alerts Substance Reaction Severity [...] 12:58:17 EDT, Aerosol, Route to Pharmacy Electronically, [id number], [facility]/pharmacy #[id number] Start Date: 06/20/19 Stop Date: 06/27/19 Status: Ordered amLODIPine 5 mg oral tablet 5 mg, 1, tablet, By Mouth, Daily, # 30 tablet, Refills 3, Tot. Refills 3, Maintenance, 07/16/20 13:50:00 EST, Route to Pharmacy Electronically, [facility]/pharmacy #[id number], Partial fill upon patient request, 173, cm, 06/08/20 10:54:00 EDT, Height, 97, kg, 0... Start Date: 07/16/20 Status: Ordered Blood Pressure Monitor Blood Pressure Monitor, See Instructions, # 1 each, Refills 0, Tot. Refills 0, Maintenance, Blood Pressure Monitor Check blood pressure once a day at least one hour after taking medications [id number] PO TID Dx: I15.9 Duration: Lifetime, 11/11... Start Date: 11/11/20 Status: Ordered Colace sodium 100 mg oral capsule 100 mg, 1, capsule, By Mouth, 2 times a day, PRN, # 180 capsule, Refills 0, Tot. Refills 0, Maintenance, for constipation, 07/16/20 15:56:00 EST, Route to Pharmacy Electronically, [facility]/pharmacy #[id number],Partial fill upon patient request, 173, cm, ... Start Date: 07/16/20 Status: Ordered dicyclomine 10 mg oral capsule 1 capsule = 10 mg, By Mouth, 4 times a day, # 56 capsule, 1 Refills, Maintenance, 11/03/20 13:15:00EST, Capsule, [facility]/pharmacy #[id number], Partial fill upon patient request, 173, cm, 11/03/20 12:57:00 EST, Height, 97, kg, 03/29/20 18:07:00 EDT, Dry Weight Start Date: 11/03/20 Stop Date: 12/01/20 Status: Ordered famotidine 20 mg oral tablet 20 mg, 1, tablet, By Mouth, Daily, # 90 tablet, Refills 11, Tot. Refills 11, Maintenance, 10/28/20 14:31:00 EST, Route to Pharmacy Electronically, [facility]/pharmacy #[id number], 173, cm, 10/28/20 13:50:00 [...] 1 Refills, Maintenance, 11/05/20 17:59:00 EST, Tablet, [facility]/pharmacy #[id number], Partial fill upon patient request if the prescription is for a schedule II opioid drug., 173, cm, 11/05/20 17:02:00 EST,... Start Date: 11/05/20 Status: Ordered Problem List Condition Effective Dates Status Health Status Inform ant Abdominal pain(Confirmed) Active Acne(Confirmed) Active Asthma(Confirmed) Active Intermittent Explosive Disorder(Confirmed) 1 Active Irritable bowel(Confirmed) Active Hepatic cyst, right lobe(Confirmed) 2 01/27/[address] [place] [address] Center 2Measures 2.4 x 1.9 x 1.7 cm and contains peripheral calcification along its posterior medial aspect Social History Social History Type Response Smoking Status Former smoker, quit more than 30 days ago entered on: 09/21/18 Sex
--- OUTSIDE RECORDS SUMMARY | 2024-06-05 13:25 | XMS_ITS | Continuity of Care Document ---
Author Organization [facility] Adult [facility] Address [address] [place] [address]- Care Team Providers Care Sanitation Worker Hosing Machinery Name Role Phone Sanjana KAHN, Natalee Rolon Primary Care Physic brian [facility] Date(s): 11/06/20 - 12/25/20 [facility] [address] [place] [address]- Attending Physician: Davis WONG, Kristine Horne Admitting [...] 12:58:17 EDT, Aerosol, Route to Pharmacy Electronically, [id number], [facility]/pharmacy #[id number] Start Date: 06/20/19 Stop Date: 06/27/19 Status: Ordered amLODIPine 5 mg oral tablet 5 mg, 1, tablet, By Mouth, Daily, # 30 tablet, Refills 3, Tot. Refills 3, Maintenance, 07/16/20 13:50:00 EST, Route to Pharmacy Electronically, [facility]/pharmacy #[id number], Partial fill upon patient request, 173, cm, 06/08/20 10:54:00 EDT, Height, 97, kg, ... Start Date: 07/16/20 Status: Ordered Blood Pressure Monitor Blood Pressure Monitor, See Instructions, # 1 each, Refills 0, Tot. Refills 0, Maintenance, Blood Pressure Monitor Check blood pressure once a day at least one hour after taking medications [id number] PO TID Dx: I15.9 Duration: Lifetime, 11/11... Start Date: 11/11/20 Status: Ordered Colace sodium 100 mg oral capsule 100 mg, 1, capsule, By Mouth, 2 times a day, PRN, # 180 capsule, Refills 0, Tot. Refills 0, Maintenance, for constipation, 07/16/20 15:56:00 EST, Route to Pharmacy Electronically, [facility]/pharmacy #[id number],Partial fill upon patient request, 173, cm, ... Start Date: 07/16/20 Status: Ordered dicyclomine 10 mg oral capsule 1 capsule = 10 mg, By Mouth, 4 times a day, # 56 capsule, 1 Refills, Maintenance, 11/03/20 13:15:00EST, Capsule, [facility]/pharmacy #[id number], Partial fill upon patient request, 173, cm, 11/03/20 12:57:00 EST, Height, 97, kg, 03/29/20 18:07:00 EDT, Dry Weight Start Date: 11/03/20 Stop Date: 12/01/20 Status: Ordered famotidine 20 mg oral tablet 20 mg, 1, tablet, By Mouth, Daily, # 90 tablet, Refills 11, Tot. Refills 11, Maintenance, 10/28/20 14:31:00 EST, Route to Pharmacy Electronically, [facility]/pharmacy #[id number], 173, cm, 10/28/20 13:50:00 EST, Height, [...] 1 Refills, Maintenance, 11/05/20 17:59:00 EST, Tablet, [facility]/pharmacy #[id number], Partial fill upon patient request if the prescription is for a schedule II opioid drug., 173, cm, 11/05/20 17:02:00 EST,... Start Date: 11/05/20 Status: Ordered Problem List Condition Effective Dates Status Health Status Inform ant Abdominal pain(Confirmed) Active Acne(Confirmed) Active Asthma(Confirmed) Active Intermittent Explosive Disorder(Confirmed) 1 Active Irritable bowel(Confirmed) Active Hepatic cyst, right lobe(Confirmed) 2 01/27/14 [facility] 2Measures 2.4 x 1.9 x 1.7 cm and contains peripheral calcification along its posterior medial aspect Social History Social History Type Response Smoking Status Former smoker, quit more than 30 days ago entered on: 09/21/18 Sex
--- OUTSIDE RECORDS SUMMARY | 2024-06-05 13:25 | XMS_ITS | Continuity of Care Document ---
Author Organization [facility] Adult [facility] Address [address] [place] [address]- Care Team Providers Care Peanut Picker Name Role Phone Eber KAHN, Zuri Primary Care Physician [facility] Date[facility]s): 06/15/22 - 07/29/22 [facility] Medicine [address] [place] [address] Attending Physician: Not on Staff, Attending MD [...] 7:39:00 EST, Route to Pharmacy Electronically, [facility]/pharmacy #[id number], Partial fill upon patient request if the prescription is for a schedule II opio... Start Date: 09/10/21 Stop Date: 09/24/21 Status: Ordered nortriptyline 10 mg oral capsule 10 mg, 1, capsule, By Mouth, Daily at bedtime, # 30 capsule, Refills 1, Tot. Refills 1, Maintenance, 07/04/22 15:54:00 EST, Route to Pharmacy Electronically, [facility]/pharmacy #[id number], Partial fill upon patient request if [...] Team Personnel Name: Zuri Velázquez MD [facility] Resident Member Role: PCP Address: Address: [address] [place] [address] [place] [address]- Care Team Related Persons Name: NADER CHAVEZ Address: [address] [place] [address] Name: DIONTE HARRELL Address: [address] [place] [address] Name: KRISHNA PA Address: [address] [place] [address]
--- OUTSIDE RECORDS SUMMARY | 2024-06-05 13:25 | XMS_ITS | Continuity of Care Document ---
Author Organization [facility] Adult [facility] Address [address] [place] [address]- Care Team Providers Care Cyber Policy And Strategy Planner Name Role Phone Sanjana KAHN, Natalee Rolon Primary Care Physic brian [facility] Date(s): 09/25/20 - 10/25/20 [facility] [address] [place] [address]- Allergies, Adverse Reactions, Alerts Substance Reaction Severity [...] 12:58:17 EDT, Aerosol, Route to Pharmacy Electronically, [id number], [facility]/pharmacy #[id number] Start Date: 06/20/19 Stop Date: 06/27/19 Status: Ordered amLODIPine 5 mg oral tablet 5 mg, 1, tablet, By Mouth, Daily, # 30 tablet, Refills 3, Tot. Refills 3, Maintenance, 07/16/20 13:50:00 EST, Route to Pharmacy Electronically, [facility]/pharmacy #[id number], Partial fill upon patient request, 173, cm, 06/08/20 10:54:00 EDT, Height, 97, kg, 080... Start Date: 07/16/20 Status: Ordered Colace sodium 100 mg oral capsule 100 mg, 1, capsule, By Mouth, 2 times a day, PRN, # 180 capsule, Refills 0, Tot. Refills 0, Maintenance, for constipation, 07/16/20 15:56:00 EST, Route to Pharmacy Electronically, [facility]/pharmacy #[id number],Partial fill upon patient request, 173, cm, 2... Start Date: 07/16/20 Status: Ordered dicyclomine 10 mg oral capsule 1 capsule = 10 mg, By Mouth, 4 times a day, # 56 capsule, 0 Refills, Maintenance, 07/16/20 13:50:00EST, Capsule, [facility]/pharmacy #[id number], Partial fill upon patient request, 173, cm, 06/08/20 10:54:00 EDT, Height, 97, kg, 03/29/20 18:07:00 EDT, Dry Weight Start Date: 07/16/20 Stop Date: 07/30/20 Status: Ordered famotidine 20 mg oral tablet 20 mg, 1, tablet, By Mouth, Daily, # 90 tablet, Refills 11, Tot. Refills 11, Maintenance, 05/18/20 19:50:00 EDT, Route to Pharmacy Electronically, [facility]/pharmacy #[id number], 173, cm, 04/29/20 16:50:00 EDT, Height, [...] Hepatic cyst, right lobe(Confirmed) 2 01/27/14 [facility] 2Me[facility] 2.4 x 1.9 x 1.7 cm and contains peripheral calcification along its posterior medial aspect Social History Social History Type Response Smoking Status Former smoker, quit more than 30 days ago entered on: 09/21/18 Sex
--- OUTSIDE RECORDS SUMMARY | 2024-06-05 13:25 | XMS_ITS | Continuity of Care Document ---
Author Organization [facility] Adult [facility] Address [address] [place] [address]- Care Team Providers Care Air Launch Weapons Technician Name Role Phone Zuri Velázquez MD Primary Care Physician [place] [facility] [place]23 - 07/05/23 [facility] [address] [place], [place] [address] Allergies, Adverse Reactions, Alerts No Known [...] upon pat... Start Date: 04/04/23 Status: Ordered [place] 0.65% nasal spray 2 sprays, Nares, Both, [...] [facility] Resident Member Role: PCP Address: Address: [address] [place] [address] [place] [address]- Care Team Related Persons Name: NADER CHAVEZ Address: [address] [place] [address] Name: DIONTE HARRELL Address: [address] [place] [address] Name: KRISHNA PA Address: [address] [place] [address]
--- OUTSIDE RECORDS SUMMARY | 2024-06-05 13:25 | XMS_ITS | Continuity of Care Document ---
Author Organization [facility] Address [address] [place] [address]- Care Team Providers Care Reclaimer Name Role Phone Zuri Velázquez MD Primary Care Physician Encounter [facility] [place] Date(s): 10/04/23 - 11/03/23 [facility] [address] [place], [place] [address] Allergies, Adverse Reactions, Alerts No [...] Refills, Maintenance, 04/10/23 16:04:00 EDT, Cream, [id number], Partial fill upon patient request if the prescription is for a schedule II opioid drug., 1 application Topically 2 times a day,... Start Date: 04/10/23 Status: Ordered ipratropium nasal 21 mcg/inh spray See Instructions, PRN Nasal Congestion, 1 spray each nostril BID, # 1 each, 4 Refills, Maintenance,06/06/23 13:45:00 EDT, [facility]/pharmacy #[id number], Partial fill upon patient request if the prescription isfor a schedule II opioid drug., 1 spray each nostri... Start Date: 06/06/23 Status: Ordered meloxicam 7.5 mg oral tablet 1 tablet = 7.5 mg, By Mouth, Daily, prn pain, take with food, # 30 tablet, 1 Refills, Maintenance, 06/13/23 16:51:00 EDT, Tablet, [facility]/pharmacy #[id number], Partial fill upon patient request if the prescription is for a schedule II opioid drug., 173, cm, 10/... Start Date: 06/13/23 Status: Ordered nortriptyline 10 mg oral capsule 10 mg, 1, capsule, By Mouth, Daily at bedtime, for 30 days, # 30 capsule, Refills 1, Tot. Refills 1, Acute 12/04/23 15:11:00 EDT, 10/05/23 15:11:00 EST, [id number] Partial fill upon patient request if the pre... Start Date: 10/05/23 Stop Date: 12/04/23 Status: Ordered [place] 0.65% nasal spray 2 sprays, Nares, Both, 4 times a day, # 1 each, 5 Refills, Maintenance, 06/13/23 16:48:00 EDT, [facility]/pharmacy #[id number], Partial fill upon [...] 06/13/23 16:46:00 EDT, Route to Pharmacy Electronically, [facility]/pharmacy #[id number], Partial fill upon [...] 15:49:00 EST, Aerosol, Route to Pharmacy Electronically, [id number], [facility]/pharmacy #[id number], 173, cm, 07/21/23 [...] S Resident Member Role: PCP Address: Address: [address] [place] [address] [place] [address]- Care Team Related Persons Name: NADER CHAVEZ Address: home [address] [place] [address] Name: DIONTE HARRELL Address: home [address] [place] [address] Name: KRISHNA PA Address: home [address] [place] [address]
--- OUTSIDE RECORDS SUMMARY | 2024-06-05 13:25 | XMS_ITS | Continuity of Care Document ---
Author Organization [facility] Address [address] [place] [address]- Care Team Providers Care Shingle Packer Name Role Phone Zuri Velázquez MD Primary Care Physician [place] [facility] 07/19/23 - 08/18/23 [facility] [address] [place], [place] [address] Allergies, Adverse Reactions, Alerts No [...] 1 each, 4 Refills, Maintenance,06/06/23 13:45:00 EDT, [facility]/pharmacy #[id number], Partial fill upon patient request if the prescription isfor a schedule II opioid drug., 1 spray each nostri... Start Date: 06/06/23 Status: Ordered meloxicam 7.5 mg oral tablet 1 tablet = 7.5 mg, By Mouth, Daily, prn pain, take with food, # 30 tablet, 1 Refills, Maintenance, 06/13/23 16:51:00 EDT, Tablet, [facility]/pharmacy #[id number], Partial fill [...] 04/04/23 15:00:00 EDT, Route to Pharmacy Electronically, [facility]/pharmacy #[id number], Partial fill upon pat... Start Date: 04/04/23 Status: Ordered White 0.65% nasal spray 2 sprays, Nares, Both, 4 times a day, # 1 each, 5 Refills, Maintenance, 06/13/23 16:48:00 EDT, [facility]/pharmacy #[id number], Partial fill [...] 06/13/23 16:46:00 EDT, Route to Pharmacy Electronically, [facility] [...] 15:49:00 EST, Aerosol, Route to Pharmacy Electronically, [id number], [facility]/pharmacy #[id number], 173, cm, 07/21/23 14:13:00 EST, [...] S Resident Member Role: PCP Address: Address: [address] [place] [address] [place] [address]- Care Team Related Persons Name: SCOTT NADER Address: home [address] [place] [address] Name: DIONTE HARRELL Address: home [address] [place] [address] Name: KRISHNA PA Address: home [address] [place] [address]
--- OUTSIDE RECORDS SUMMARY | 2024-06-05 13:25 | XMS_ITS | Continuity of Care Document ---
Author Organization [facility] Address [address] [place] [address]- Care Team Providers Care Cbx Operator Name Role Phone Sanjana KAHN, Natalee Rolon Primary Care Physic brian [place] [facility] [place](s): 01/03/22 - 02/02/22 [facility] [address] [place] [address]- Allergies, Adverse Reactions, Alerts No Known Allergies [...] 12:58:17 EDT, Aerosol, Route to Pharmacy Electronically, [id number], [facility]/pharmacy #[id number] Start Date: 06/20/19 Stop [...] at least one hour after taking medications [id number] PO TID Dx: I15.9 Duration: Lifetime, 11/11... [...]
--- OUTSIDE RECORDS SUMMARY | 2024-06-05 13:25 | XMS_ITS | Continuity of Care Document ---
Author Organization [facility] Address [address] [place] [address]- Care Team Providers Care Nursing Program Manager Name Role Phone Sanjana KAHN, Natalee Rolon Primary Care Physic brian [facility]counter [facility] Date(s): 07/10/20 - 08/09/20 [facility] [address] [place] [address]- Allergies, Adverse Reactions, Alerts Substance Reaction Severity [...] 12:58:17 EDT, Aerosol, Route to Pharmacy Electronically, [id number], [id number] Start Date: 06/20/19 Stop Date: 06/27/19 Status: Ordered amLODIPine 5 mg oral tablet 5 mg, 1, tablet, By Mouth, Daily, # 30 tablet, Refills 3, Tot. Refills 3, Maintenance, 07/16/20 13:50:00 EST, Route to Pharmacy Electronically, [facility]/pharmacy #[id number], Partial fill upon patient request, 173, cm, 10/12/20 10:54:00 EDT, Height, 97, kg, 08... Start Date: 07/16/20 Status: Ordered Colace sodium 100 mg oral capsule 100 mg, 1, capsule, By Mouth, 2 times a day, PRN, # 180 capsule, Refills 0, Tot. Refills 0, Maintenance, for constipation, 07/16/20 15:56:00 EST, Route to Pharmacy Electronically, [facility]/pharmacy #[id number],Partial fill upon patient request, 173, cm, 2... Start Date: 07/16/20 Status: Ordered dicyclomine 10 mg oral capsule 1 capsule = 10 mg, By Mouth, 4 times a day, # 56 capsule, 0 Refills, Maintenance, 07/16/20 13:50:00EST, Capsule, [facility]/pharmacy #[id number], Partial fill upon patient request, 173, cm, 06/08/20 10:54:00 EDT, Height, 97, kg, 03/29/20 18:07:00 EDT, Dry Weight Start Date: 07/16/20 Stop Date: 07/30/20 Status: Ordered famotidine 20 mg oral tablet 20 mg, 1, tablet, By Mouth, Daily, # 90 tablet, Refills 11, Tot. Refills 11, Maintenance, 05/18/20 19:50:00 EDT, Route to Pharmacy Electronically, [facility]/pharmacy #[id number], 173, cm, 04/29/20 16:50:00 EDT, Height, [...] Hepatic cyst, right lobe(Confirmed) 2 [facility]/14 [facility] 2Measures 2.4 x 1.9 x 1.7 cm and contains peripheral calcification along its posterior medial aspect Social History Social History Type Response Smoking Status Former smoker, quit more than 30 days ago entered on: 09/21/18 Sex
--- OUTSIDE RECORDS SUMMARY | 2024-06-05 13:25 | XMS_ITS | Continuity of Care Document ---
Author Organization [facility] Address [address] [place] [address]- Care Team Providers Care Toilet And Laundry Soap Supervisor Name Role Phone Zuri Velázquez MD Primary Care Physician Encounter [id number] Date(s): 07/28/23 - 10/29/23 [facility] [address] [place], [place] [address] Attending Physician: Randy Zuñiga MD Admitting Physician: [...] 1 each, 4 Refills, Maintenance,06/06/23 13:45:00 EDT, [facility]/pharmacy #[id number], Partial fill upon patient request if the prescription isfor a schedule II opioid drug., 1 spray each nostri... Start Date: 06/06/23 Status: Ordered meloxicam 7.5 mg oral tablet 1 tablet = 7.5 mg, By Mouth, Daily, prn pain, take with food, # 30 tablet, 1 Refills, Maintenance, 06/13/23 16:51:00 EDT, Tablet, [facility]/pharmacy #[id number], Partial fill upon patient request if the prescription is for a schedule II opioid drug., 173, cm, 10/... Start Date: 06/13/23 Status: Ordered nortriptyline 10 mg oral capsule 10 mg, 1, capsule, By Mouth, Daily at bedtime, for 30 days, # 30 capsule, Refills 1, Tot. Refills 1, Acute 12/04/23 15:11:00 EDT, 10/05/23 15:11:00 EST, [id number] fill upon patient request if the pre... Start Date: 10/05/23 Stop Date: 12/04/23 Status: Ordered [place] 0.65% nasal spray 2 sprays, Nares, Both, 4 times a day, # 1 each, 5 Refills, Maintenance, 06/13/23 16:48:00 EDT, [facility]/pharmacy #[id number], Partial fill upon [...] 06/13/23 16:46:00 EDT, Route to Pharmacy Electronically, [facility]/pharmacy #[id number], Partial fill upon [...] 15:49:00 EST, Aerosol, Route to Pharmacy Electronically, [id number], [facility]/pharmacy #[id number], 173, cm, 07/21/23 [...] Team Personnel Name: Zuri Velázquez MD Position: [facility] Resident Member Role: PCP Address: Address: [address] [place] [address] [place] [address]- Care Team Related Persons Name: NADER CHAVEZ Address: home [address] [place] [address] Name: DIONTE HARRELL Address: [address] [place] [address] Name: KRISHNA PA Address: [address] [place] [address]
--- OUTSIDE RECORDS SUMMARY | 2024-06-05 13:26 | XMS_ITS | Continuity of Care Document ---
Author Organization [facility] Address [address] [place] [address]- Care Team Providers Care Floorworker Distributor Name Role Phone Yehuda Bernal MD Primary Care Physician Encounter [facility] Date(s): 04/16/24 - 05/16/24 [facility] [address] [place], [place] [phone] Allergies, Adverse Reactions, Alerts No Known Allergies [...] Refills, Maintenance, 04/10/23 16:04:00 EDT, Cream, [id number], Partial fill upon patient request if the prescription is for a schedule II opioid drug., 1 application Topically 2 times a day,... Start Date: 04/10/23 Status: Ordered cetirizine 10 mg oral tablet 1 tablet = 10 mg, By Mouth, Daily, # 30 tablet, 0 Refills, Maintenance, 05/01/24 16:43:00 EDT, Tablet, [id number], Partial fill upon patient request if the prescription is for a schedule II opioid drug., 173, cm, 05/01/24 16:22:00 EDT, Height Start Date: 05/01/24 Status: Ordered Flonase Allergy Relief 50 mcg/inh nasal spray 1 sprays = 50 mcg, Nares, Both, Daily, shake well before using, # 9.9 mL, 0 Refills, Maintenance, 05/01/24 16:43:00 EDT, Supai, [id number], Partial fill upon patient request if the prescription is for a schedule II opioid drug., 173, cm, 05/01... Start Date: 05/01/24 Status: Ordered ipratropium nasal 21 mcg/inh spray See Instructions, PRN Nasal Congestion, 1 spray each nostril BID, # 1 each, 4 Refills, Maintenance,06/06/23 13:45:00 EDT, [id number], Partial fill upon patient request if the prescription isfor a schedule II opioid drug., 1 spray each nostri... Start Date: 06/06/23 Status: Ordered magnesium oxide 400 mg oral tablet 1 tablet = 400 mg, By Mouth, Daily, for 90 days, # 90 tablet, 2 Refills, Acute 01/26/25 16:40:00 EDT, 05/01/24 16:40:00 EDT, [id number], Partial fill upon patient request if the prescription is for a schedule II opioid drug., 173, cm, 05/01/24... Start Date: 05/01/24 Stop Date: 01/26/25 Status: Ordered meloxicam 7.5 mg oral tablet 1 tablet = 7.5 mg, By Mouth, Daily, prn pain, take with food, # 30 tablet, 1 Refills, Maintenance, 06/13/23 16:51:00 EDT, Tablet, [id number], Partial fill upon patient request if the prescription is for a schedule II opioid drug., 173, cm, ... Start Date: 06/13/23 Status: Ordered [place] 0.65% nasal spray 2 sprays, Nares, Both, 4 times a day, # 1 each, 5 Refills, Maintenance, 06/13/23 16:48:00 EDT, [facility]/pharmacy #[id number], Partial fill upon patient [...] 16:46:00 EDT, Route to Pharmacy Electronically, [facility]/pharmacy #[id number], Partial fill upon patient [...] 01/04/23 13:08:00... Start Date: 01/04/23 Status: Ordered riboflavin 400 mg oral tablet 1 tablet = 400 mg, By Mouth, Daily, # 90 tablet, 2 Refills, Maintenance, 05/01/24 16:40:00 EDT, Tablet, [facility]/pharmacy #[id number], Partial fill upon patient request if the prescription is for a schedule II opioid drug., 173, cm, 05/01/24 16:22:00 EDT, Height Start Date: 05/01/24 Stop Date: 01/26/25 Status: Ordered Symbicort 80mcg/4.5mcg Inhaler 2, puffs, Inhalation, 2 times a day, # 10.2 Gm, Refills 2, Tot. Refills 2, Maintenance, 07/21/23 15:49:00 EST, Aerosol, Route to Pharmacy Electronically, [id number], [facility]/pharmacy #[id number], 173, cm, 07/21/23 14:13:00 [...] Care team information Care Team Personnel Name: Yehuda Bernal MD Position: [facility] Resident Member Role: PCP Address: Address: [address] [place] [address]- Care Team Related Persons Name: NADER CHAVEZ Address: home [address] [place] [address] Name: DIONTE HARRELL Address: home [address] [place] [address] Name: KRISHNA PA Address: home [address] [place] [address]
--- OUTSIDE RECORDS SUMMARY | 2024-06-05 13:26 | XMS_ITS | Continuity of Care Document ---
Author Organization [facility] Address [address] [place] [address]- Care Team Providers Care Poultry Hanger Name Role Phone Zuri Velázquez MD Primary Care Physician [place] [facility] [place] 08/10/23 - 09/10/23 [facility] [address] [place], [place] [address] Attending Physician: Not on Staff, Attending [...] 1 Refills, Maintenance, 06/13/23 16:51:00 EDT, Tablet, [facility]/pharmacy #[id number], Partial fill [...] 04/04/23 15:00:00 EDT, Route to Pharmacy Electronically, [facility]/pharmacy #[id number], Partial fill upon pat... Start Date: 04/04/23 Status: Ordered [place] 0.65% nasal spray 2 sprays, Nares, Both, 4 times a day, # 1 each, 5 Refills, Maintenance, 06/13/23 16:48:00 EDT, [facility]/pharmacy #[id number], Partial fill upon [...] 06/13/23 16:46:00 EDT, Route to Pharmacy Electronically, [facility]/pharmacy #[id number], Partial fill upon patient request if the prescription is for a schedule II opioid dr.Quin Start Date: 06/13/23 Status: Ordered Readi-Cat 2 [...] 15:49:00 EST, Aerosol, Route to Pharmacy Electronically, [id number], [facility]/pharmacy #[id number], 173, cm, 07/21/23 14:13:00 EST, Height [...] Team Personnel Name: Zuri Velázquez MD Position: [facility] Resident Member Role: PCP Address: Address: [address] [place] [address] [place] [address]- Care Team Related Persons Name: NADER CHAVEZ Address: home [address] [place] [address] Name: DIONTE HARRELL Address: home [address] [place] [address] Name: KRISHNA PA Address: home [address] [place] [address]
--- OUTSIDE RECORDS SUMMARY | 2024-06-05 13:26 | XMS_ITS | Continuity of Care Document ---
Author Organization [facility] Address [address] [place] [address]- Care Team Providers Care Oil Field Worker Name Role Phone Sanjana KAHN, Natalee Rolon Primary Care Physic brian Encounter [facility] Date(s): 06/02/21 - 07/04/21 [facility] [address] [place] [address]- [place] Attending Physician: Hardy Agosto MD Admitting Physician: Hardy Agosto MD Allergies, Adverse Reactions, Alerts Substance Reaction [...] 12:58:17 EDT, Aerosol, Route to Pharmacy Electronically, [id number], [facility]/pharmacy #[id number] Start Date: 06/20/19 Stop Date: 06/27/19 Status: Ordered amLODIPine 5 mg oral tablet 5 mg, 1, tablet, By Mouth, Daily, # 30 tablet, Refills 3, Tot. Refills 3, Maintenance, 07/16/20 13:50:00 EST, Route to Pharmacy Electronically, [facility]/pharmacy #[id number], Partial fill upon patient request, 173, cm, 06/08/20 10:54:00 EDT, Height, 97, kg, 0... Start Date: 07/16/20 Status: Ordered Blood Pressure Monitor Blood Pressure Monitor, See Instructions, # 1 each, Refills 0, Tot. Refills 0, Maintenance, Blood Pressure Monitor Check blood pressure once a day at least one hour after taking medications [id number] PO TID Dx: I15.9 Duration: Lifetime, 11/11... Start Date: 11/11/20 Status: Ordered Colace sodium 100 mg oral capsule 100 mg, 1, capsule, By Mouth, 2 times a day, PRN, # 180 capsule, Refills 0, Tot. Refills 0, Maintenance, for constipation, 07/16/20 15:56:00 EST, Route to Pharmacy Electronically, [facility]/pharmacy #[id number],Partial fill upon patient request, 173, cm, ... Start Date: 07/16/20 Status: Ordered dicyclomine 10 mg oral capsule 1 capsule = 10 mg, By Mouth, 4 times a day, # 56 capsule, 1 Refills, Maintenance, 11/03/20 13:15:00EST, Capsule, [facility]/pharmacy #[id number], Partial fill upon patient request, 173, cm, 11/03/20 12:57:00 EST, Height, 97, kg, 03/29/20 18:07:00 EDT, Dry Weight Start Date: 11/03/20 Stop Date: 12/01/20 Status: Ordered famotidine 20 mg oral tablet 20 mg, 1, tablet, By Mouth, Daily, # 90 tablet, Refills 11, Tot. Refills 11, Maintenance, 10/28/20 14:31:00 EST, Route to Pharmacy Electronically, [facility]/pharmacy #[id number], 173, cm, 10/28/20 13:50:00 EST, [...] 1 Refills, Maintenance, 11/05/20 17:59:00 EST, Tablet, [facility]/pharmacy #[id number], Partial fill upon patient request if the prescription is for a schedule II opioid drug., 173, cm, 11/05/20 17:02:00 EST,... Start Date: 11/05/20 Status: Ordered Problem List Condition Effective Dates Status Health Status Inform ant Abdominal pain(Confirmed) Active Acne(Confirmed) Active Asthma(Confirmed) Active Intermittent Explosive Disorder(Confirmed) 1 Active Irritable bowel(Confirmed) Active Hepatic cyst, right lobe(Confirmed) 2 01/27/[address] [place] [address] Center 2Measures 2.4 x 1.9 x 1.7 cm and contains peripheral calcification along its posterior medial aspect Social History Social History Type Response Smoking Status Former smoker, quit more than 30 days ago entered on: 09/21/18 Sex
--- OUTSIDE RECORDS SUMMARY | 2024-06-05 13:26 | XMS_ITS | Continuity of Care Document ---
Author Organization [facility] ter Address [address] [place] [address]- Care Team Providers Care Civil Engineering Drafter Name Role Phone Sanjana KAHN, Natalee Rolon Primary Care Physic brian Encounter [facility] Date(s): 11/05/19 - 11/05/[address] [address]- [facility] Discharge Disposition: A-D/C Home Attending Physician: Lucia Espinoza MD Admitting Physician: Lucia Espinoza MD Referring Physician: Not on Staff, Referring [...] 12:58:17 EDT, Aerosol, Route to Pharmacy Electronically, [id number], [facility]/pharmacy #[id number] Start Date: 06/20/19 Stop Date: 06/27/19 Status: Ordered ceftriaxone 250 mg injectable powder for injection = 250 mg, Intramuscular, Once, Lot #: [id number] Exp: 09/2020, # 1 Doses, 0 Refills, Soft Stop, 03/04/19 11:49:13 EDT Start Date: 03/04/19 Status: Ordered Hernia Belt Hernia Belt, See Instructions, # 1 each, Refills 0, Tot. Refills 0, Maintenance, Hernia Belt, 05/06/19 19:12:26 EDT, Compound Start Date: 05/06/19 Status: Ordered ibuprofen 800 mg oral tablet 800 mg, 1, tablet, By Mouth, 3 times a day, for 5 days, for pain. take with food., # 15 tablet, Refills 1, Tot. Refills 1, Acute 11/11/19 16:46:00 EDT, 11/01/19 16:46:00 EST, Route to Pharmacy Electronically, [facility]/pharmacy #[id number], 174.5, cm, 11/01/19 16... Start Date: 11/01/19 Stop Date: 11/11/19 Status: Ordered Medrol 4 mg oral tablet [...] peripheral calcification along its posterior medial aspect Results Radiology Reports * Exam Date Time Procedure Performing Provider Status 11/05/19 3:41 PM Sacrum and Coccyx Min 2 Views Ekenbarg jessi , Esme Jin; Jose (Verified) Notes: (Sacrum and Coccyx Min 2 Views) Reason For Exam: with Pain;Trauma RESULT: Sacrum and Coccyx Min 2 Views Sacrum and Coccyx Min 2 Views INDICATION: Trauma and pain. Clinical question: Fracture. COMPARISON: None FINDINGS: No bone lesions or fractures. No arthritic changes of the SI joints. Normal alignment of the sacrumand coccyx. Normal soft tissues. IMPRESSION: No evidence of acute fracture. I have personally reviewed the images and I agree with this report. WSN: [id number] Ordering Physician: Da Childs Dictated By: EliseoSiddhartha Bragg MD Dictated Date/Time: 11/05/19 4:05 pm Reviewed By: Jack Covarrubias MD Signed By: Jack Covarrubias MD Signed Date/Time: 11/05/19 4:10 pm Transcribed By: MELINDA Transcribed Date/Time: 11/05/19 3:55 pm * Exam Date Time Procedure Performing Provider Status 11/05/19 3:41 PM Lumbar Spine 2 or 3 Views Esme Lehman; Auth (Verified) Notes: (Lumbar Spine 2 or 3 Views) Reason For Exam: with Pain;Trauma RESULT: Lumbar Spine 2 or 3 Views Examination: Lumbar spine performed on 11/05/2027. History: Reason: Trauma; with Pain; Clinical Question(s): Fracture Dislocation; Hx of Present Illness: Patient reports severe lower back pain after lifting a box at work this morning. Denies numbnesstingling. Findings: Frontal, lateral, and cone-down lateral views of the lumbar spine are submitted. There are five lumbar type nonrib-bearing vertebral bodies. Vertebral body heights and disc spaces are preserved with the exception of the L5-S1 level. There is disc space narrowing at this level with a 3 mm retrolisthesis of L5 on S1. No fractures are seen. IMPRESSION: Degenerative disc disease. There is no acute osseous abnormality. WSN: [id number] Ordering Physician: Da Childs Dictated By: Cara Valle MD Dictated Date/Time: 11/05/19 3:46 pm Reviewed By: Cara Valle MD Signed By: Cara Valle MD Signed Date/Time: 11/05/19 3:46 pm Transcribed By: MELINDA Transcribed Date/Time: 11/05/19 3:45 pm Vital Signs Most recent to oldest [Reference Range]: 1 2 3 Height 168 cm (11/05/19 2:41 PM) 168 cm (11/05/19 11:56 AM) 168 cm (11/05/19 10:48 AM) Oxygen Saturation [94-100 %] 100 % (11/05/19 10:02 PM) 100 % (11/05/19 7:43 PM) 100 % (11/05/19 6:20 PM) Pulse Rate [55-90 bpm] 70 bpm (11/05/19 10:02 PM) 75 bpm (11/05/19 7:43 PM) 72 bpm (11/05/19 6:20 PM) Blood Pressure [90-138/55-84 mm Hg] 125/61mm Hg (11/05/19 10:02 PM) 127/60mm Hg (11/05/19 7:43 PM) 134/57mm Hg (11/05/19 6:20 PM) Respiratory Rate [16-30 br/min] 16 br/min (11/05/19 10:02 PM) 16 br/min (11/05/19 7:43 PM) 16 br/min (11/05/19 6:20 PM) Temperature [96.8-100.4 DegF] 98.1 DegF (11/05/19 2:41 PM) 98.1 DegF (11/05/19 10:48 AM) Mode of Delivery (Oxygen) Room air (11/05/19 10:02 PM) Room air (11/05/19 7:43 PM) Room air (11/05/19 6:20 PM) Blood pressure sites Arm, left (11/05/19 7:43 PM) Arm, left (11/05/19 6:20 PM) Arm, left (11/05/19 2:41 PM) Temperature Route Oral (11/05/19 2:41 PM) Oral (11/05/19 10:48 AM) Social History Social History Type Response Smoking Status Former smoker, quit more than 30 days ago entered on: 09/21/18 Sex
--- OUTSIDE RECORDS SUMMARY | 2024-06-05 13:26 | XMS_ITS | Continuity of Care Document ---
Author Organization [facility] Address [address] [place] [address]- Care Team Providers Care Chair Trimmer Name Role Phone Sanjana KAHN, Natalee Rolon Primary Care Physic brian Encounter [facility] Date(s): 04/05/21 - 05/29/21 [facility] [address] [place] [address]- Attending Physician: Randy Zuñiga MD Admitting Physician: [...] 12:58:17 EDT, Aerosol, Route to Pharmacy Electronically, [id number], [facility]/pharmacy #[id number] Start Date: 06/20/19 Stop Date: 06/27/19 Status: Ordered amLODIPine 5 mg oral tablet 5 mg, 1, tablet, By Mouth, Daily, # 30 tablet, Refills 3, Tot. Refills 3, Maintenance, 07/16/20 13:50:00 EST, Route to Pharmacy Electronically, [facility]/pharmacy #[id number], Partial fill upon patient request, 173, cm, 06/08/20 10:54:00 EDT, Height, 97, kg, 080... Start Date: 07/16/20 Status: Ordered Blood Pressure Monitor Blood Pressure Monitor, See Instructions, # 1 each, Refills 0, Tot. Refills 0, Maintenance, Blood Pressure Monitor Check blood pressure once a day at least one hour after taking medications [id number] PO TID Dx: I15.9 Duration: Lifetime, 11/11... Start Date: 11/11/20 Status: Ordered Colace sodium 100 mg oral capsule 100 mg, 1, capsule, By Mouth, 2 times a day, PRN, # 180 capsule, Refills 0, Tot. Refills 0, Maintenance, for constipation, 07/16/20 15:56:00 EST, Route to Pharmacy Electronically, [facility]/pharmacy #[id number],Partial fill upon patient request, 173, cm, ... Start Date: 07/16/20 Status: Ordered dicyclomine 10 mg oral capsule 1 capsule = 10 mg, By Mouth, 4 times a day, # 56 capsule, 1 Refills, Maintenance, 11/03/20 13:15:00EST, Capsule, [facility]/pharmacy #[id number], Partial fill upon patient request, 173, cm, 11/03/20 12:57:00 EST, Height, 97, kg, 03/29/20 18:07:00 EDT, Dry Weight Start Date: 11/03/20 Stop Date: 12/01/20 Status: Ordered famotidine 20 mg oral tablet 20 mg, 1, tablet, By Mouth, Daily, # 90 tablet, Refills 11, Tot. Refills 11, Maintenance, 10/28/20 14:31:00 EST, Route to Pharmacy Electronically, [facility]/pharmacy #[id number], 173, cm, 10/28/20 13:50:00 EST, [...] 0 Refills,Maintenance, 11/03/20 13:15:00 EST, DIS Tablet, [facility]/pharmacy #[id number], 173, cm, 11/03/20 12:57:00 EST,Height, 97, kg, 03/29/20 18:07:00 EDT, Dry Weight Start Date: 11/03/20 Stop Date: 11/06/20 Status: Ordered verapamil 40 mg oral tablet 1 tablet = 40 mg, By Mouth, 3 times a day, # 90 tablet, 1 Refills, Maintenance, 11/05/20 17:59:00 EST, Tablet, [facility]/pharmacy #[id number], Partial fill upon patient request if the prescription is for a schedule II opioid drug., 173, cm, 11/05/20 17:02:00 EST,... Start Date: 11/05/20 Status: Ordered Problem List Condition Effective Dates Status Health Status Inform ant Abdominal pain(Confirmed) Active Acne(Confirmed) Active Asthma(Confirmed) Active Intermittent Explosive Disorder(Confirmed) 1 Active Irritable bowel(Confirmed) Active Hepatic cyst, right lobe(Confirmed) 2 01/27/[address] [place] [address] Center 2Measures 2.4 x 1.9 x 1.7 cm and contains peripheral calcification along its posterior medial aspect Social History Social History Type Response Smoking Status Former smoker, quit more than 30 days ago entered on: 09/21/18 Sex
--- OUTSIDE RECORDS SUMMARY | 2024-06-05 13:26 | XMS_ITS | Continuity of Care Document ---
Author Organization [facility] Address [address] [place] [address]- Care Team Providers Care In Class Special Education Teacher Name Role Phone Zuri Velázquez MD Primary Care Physician Encounter [facility] Date(s): 10/05/23 - 11/04/23 [facility] [address] [address] Attending Physician: Admtr, Vanessa Admitting Physician: Admtr, [id number] Referring Physician: Admtr, Ar8 Allergies, Adverse Reactions, [...] Refills, Maintenance, 04/10/23 16:04:00 EDT, Cream, [id number], Partial fill upon patient request if the prescription is for a schedule II opioid drug., 1 application Topically 2 times a day,... Start Date: 04/10/23 Status: Ordered ipratropium nasal 21 mcg/inh spray See Instructions, PRN Nasal Congestion, 1 spray each nostril BID, # 1 each, 4 Refills, Maintenance,06/06/23 13:45:00 EDT, [facility]/pharmacy #[id number], Partial fill upon patient request if the prescription isfor a schedule II opioid drug., 1 spray each nostri... Start Date: 06/06/23 Status: Ordered meloxicam 7.5 mg oral tablet 1 tablet = 7.5 mg, By Mouth, Daily, prn pain, take with food, # 30 tablet, 1 Refills, Maintenance, 06/13/23 16:51:00 EDT, Tablet, [facility]/pharmacy #[id number], Partial [...] 15:11:00 EST, Route to Pharmacy Electronically, [facility]/pharmacy#[id number], Partial fill upon patient request if the pre... Start Date: 10/05/23 Stop Date: 12/04/23 Status: Ordered [place] 0.65% nasal spray 2 sprays, Nares, Both, 4 times a day, # 1 each, 5 Refills, Maintenance, 06/13/23 16:48:00 EDT, [facility]/pharmacy #[id number], Partial fill [...] 06/13/23 16:46:00 EDT, Route to Pharmacy Electronically, [facility] [...] 15:49:00 EST, Aerosol, Route to Pharmacy Electronically, [id number], [facility]/pharmacy #[id number], 173, cm, 07/21/23 14:13:00 [...] S Resident Member Role: PCP Address: Address: [address] [place] [address] [place] [address]- [place] Care Team Related Persons Name: NADER CHAVEZ Address: home [address] [place] [address] Name: DIONTE HARRELL Address: home [address] [place] [address] Name: KRISHNA PA Address: home [address] [place] [address]
--- OUTSIDE RECORDS SUMMARY | 2024-06-05 13:26 | XMS_ITS | Continuity of Care Document ---
Author Organization [facility] Adult [facility] Address [address] [place] [address]- Care Team Providers Care Health Physics Technician Name Role Phone Sanjana KAHN, Natalee Rolon Primary Care Physic brian Encounter [facility] Date(s): 04/07/21 - 05/07/21 [facility] [address] [place] [address]- Allergies, Adverse Reactions, Alerts Substance Reaction Severity [...] 12:58:17 EDT, Aerosol, Route to Pharmacy Electronically, [id number], [id number] Start Date: 06/20/19 Stop Date: 06/27/19 Status: Ordered amLODIPine 5 mg oral tablet 5 mg, 1, tablet, By Mouth, Daily, # 30 tablet, Refills 3, Tot. Refills 3, Maintenance, 07/16/20 13:50:00 EST, Route to Pharmacy Electronically, [facility]/pharmacy #[id number], Partial fill upon patient request, 173, cm, 06/08/20 10:54:00 EDT, Height, 97, kg, 0... Start Date: 07/16/20 Status: Ordered Blood Pressure Monitor Blood Pressure Monitor, See Instructions, # 1 each, Refills 0, Tot. Refills 0, Maintenance, Blood Pressure Monitor Check blood pressure once a day at least one hour after taking medications [id number] PO TID Dx: I15.9 Duration: Lifetime, 11/11... Start Date: 11/11/20 Status: Ordered Colace sodium 100 mg oral capsule 100 mg, 1, capsule, By Mouth, 2 times a day, PRN, # 180 capsule, Refills 0, Tot. Refills 0, Maintenance, for constipation, 07/16/20 15:56:00 EST, Route to Pharmacy Electronically, [facility]/pharmacy #[id number],Partial fill upon patient request, 173, cm, ... Start Date: 07/16/20 Status: Ordered dicyclomine 10 mg oral capsule 1 capsule = 10 mg, By Mouth, 4 times a day, # 56 capsule, 1 Refills, Maintenance, 11/03/20 13:15:00EST, Capsule, [facility]/pharmacy #[id number], Partial fill upon patient request, 173, cm, 11/03/20 12:57:00 EST, Height, 97, kg, 03/29/20 18:07:00 EDT, Dry Weight Start Date: 11/03/20 Stop Date: 12/01/20 Status: Ordered famotidine 20 mg oral tablet 20 mg, 1, tablet, By Mouth, Daily, # 90 tablet, Refills 11, Tot. Refills 11, Maintenance, 10/28/20 14:31:00 EST, Route to Pharmacy Electronically, [facility]/pharmacy #[id number], 173, cm, 10/28/20 13:50:00 EST, Height, 97, kg, 03/29/20 18:07:00 EDT, Dry Weight Start Date: 10/28/20 Stop Date: 10/13/23 Status: Ordered MiraLax oral powder for reconstitution = 17 Gm, By Mouth, Daily, dissolve in water before taking, # 1,530 Gm, 0 Refills, Maintenance, 07/16/20 13:50:00 EST, REC Powder, [facility]/pharmacy #[id number], Partial fill upon patient request, 17 Gm By MouthDaily,Instr:dissolve in water before taking, 173, c... Start Date: 07/16/20 Status: Ordered ondansetron 4 mg oral tablet, disintegrating 1 tablet = 4 mg, By Mouth, Every 8 hours, PRN as needed for nausea/vomiting, # 9 tablet, 0 Refills,Maintenance, 11/03/20 13:15:00 EST, DIS Tablet, [facility]/pharmacy #[id number], 173, cm, 11/03/20 12:57:00 EST,Height, 97, kg, 03/29/20 18:07:00 EDT, Dry Weight Start Date: 11/03/20 Stop Date: 11/06/20 Status: Ordered verapamil 40 mg oral tablet 1 tablet = 40 mg, By Mouth, 3 times a day, # 90 tablet, 1 Refills, Maintenance, 11/05/20 17:59:00 EST, Tablet, [facility]/pharmacy #[id number], Partial fill upon patient request if the prescription is for a schedule II opioid drug., 173, cm, 11/05/20 17:02:00 EST,... Start Date: 11/05/20 Status: Ordered Problem List Condition Effective Dates Status Health Status Inform ant Abdominal pain(Confirmed) Active Acne(Confirmed) Active Asthma(Confirmed) Active Intermittent Explosive Disorder(Confirmed) 1 Active Irritable bowel(Confirmed) Active Hepatic cyst, right lobe(Confirmed) 2 01/27/[address] [facility] 2Measures 2.4 x 1.9 x 1.7 cm and contains peripheral calcification along its posterior medial aspect Social History Social History Type Response Smoking Status Former smoker, quit more than 30 days ago entered on: 09/21/18 Sex
--- OUTSIDE RECORDS SUMMARY | 2024-06-05 13:26 | XMS_ITS | Continuity of Care Document ---
Author Organization [facility] ter Address [address] [place] [address]- Care Team Providers Care Dairy Equipment Installer Name Role Phone Zuri Velázquez MD Primary Care Physician Encounter [facility] Date(s): 04/26/23 - 05/27/[address] [address] Attending Physician: Kanu WONG, Celina Choi [...] 5 Refills, Maintenance, 04/10/23 16:04:00 EDT, Cream, [facility]/pharmacy #[id number], Partial fill upon patient request if the [...] 04/04/23 15:00:00 EDT, Route to Pharmacy Electronically, [facility]/pharmacy #[id number], Partial fill upon pat... Start Date: 04/04/23 [...] Team Personnel Name: Zuri Velázquez MD Position: [facility] Resident Member Role: PCP Address: Address: [address] [place] [address] [place] [address]- Care Team Related Persons Name: NADER CHAVEZ Address: home [address] [place] [address] Name: DIONTE HARRELL Address: home [address] [place] [address] Name: KRISHNA PA Address: home [address] [place] [address]
--- OUTSIDE RECORDS SUMMARY | 2024-06-05 13:26 | XMS_ITS | Continuity of Care Document ---
Author Organization [facility] Address [address] [place] [address]- Care Team Providers Care Manufacturer Representative Name Role Phone Sanjana KAHN, Natalee Rolon Primary Care Physic brian Encounter [facility] Date(s): 08/30/19 - 10/26/19 [facility] [address] [place] [address]- [facility] Attending Physician: Randy Zuñiga MD Admitting Physician: Randy Zuñiga MD Allergies, Adverse Reactions, Alerts Substance Reaction Severity Status NKA Active Immunizations Given and Recorded Vaccine Date Status Refusal Reason tetanus/diphtheria/pertussis, acel(Tdap) 02/07/18 Given influenza virus vaccine, inactivated 07/13/17 Give n influenza virus vaccine, inactivated 09/24/13 Give n influenza virus vaccine, live 1 07/27/12 Given 1Admin Note: VIS DATED 02/27/2012 GIVEN. Medications albuterol CFC free 90 mcg/inh inhalation aerosol 2, puffs, Inhalation, Every 4 hours, PRN, # 1 each, Refills 0, Tot. Refills 0, Maintenance, 06/20/19 12:58:17 EDT, Aerosol, Route to Pharmacy Electronically, [id number], [facility]/pharmacy #[id number] Start Date: 06/20/19 Stop Date: 06/27/19 Status: Ordered ceftriaxone 250 mg injectable powder for injection = 250 mg, Intramuscular, Once, Lot #: [id number] Exp: 09/2020, # 1 Doses, 0 Refills, [...] Hepatic cyst, right lobe(Confirmed) 2 01/27/14 [facility] 2Measures 2.4 x 1.9 x 1.7 cm and contains peripheral calcification along its posterior medial aspect Social History Social History Type Response Smoking Status Former smoker, quit more than 30 days ago entered on: 09/21/18 Sex
--- OUTSIDE RECORDS SUMMARY | 2024-06-05 13:26 | XMS_ITS | Continuity of Care Document ---
Author Organization [facility] Address [address] [place] [address]- Care Team Providers Care Drafting Layout Worker Name Role Phone Zuri Velázquez MD Primary Care Physician En[place] [facility] Date(s): 05/04/23 - 06/03/23 [facility] [address] [place], [place] [address] Allergies, Adverse Reactions, Alerts No [...] 5 Refills, Maintenance, 04/10/23 16:04:00 EDT, Cream, [facility]/pharmacy #[id number], Partial fill upon patient request [...] 04/04/23 15:00:00 EDT, Route to Pharmacy Electronically, [id number], Partial fill upon pat... Start Date: [...] Team Personnel Name: Zuri Velázquez MD Position: [facility] Resident Member Role: PCP Address: Address: [address] [place] [address] [place] [address]- Care Team Related Persons Name: NADER CHAVEZ Address: home [address] [place] [address] Name: DIONTE HARRELL Address: home [address] [place] [address] Name: KRISHNA PA Address: home [address] [place] [address]
--- OUTSIDE RECORDS SUMMARY | 2024-06-05 13:26 | XMS_ITS | Continuity of Care Document ---
Author Organization [facility] Address [address] [place] [address]- Care Team Providers Care Supervisor Mold Shop Name Role Phone Sanjana KAHN, Natalee Rolon Primary Care Physic brian Encounter [facility] [id number] Date(s): 09/17/21 - 10/28/21 [facility] [address] [place] [address]- Attending Physician: Not on Staff, Attending MD [...] 12:58:17 EDT, Aerosol, Route to Pharmacy Electronically, [id number], [id number] Start Date: 06/20/19 Stop Date: 06/27/19 Status: Ordered amLODIPine 5 mg oral tablet 5 mg, 1, tablet, By Mouth, Daily, # 30 tablet, Refills 3, Tot. Refills 3, Maintenance, 07/16/20 13:50:00 EST, Route to Pharmacy Electronically, [id number], Partial fill upon patient request, 173, cm, 06/08/20 10:54:00 EDT, Height, 97, kg, ... Start Date: 07/16/20 Status: Ordered Blood Pressure Monitor Blood Pressure Monitor, See Instructions, # 1 each, Refills 0, Tot. Refills 0, Maintenance, Blood Pressure Monitor Check blood pressure once a day at least one hour after taking medications [id number] PO TID Dx: I15.9 Duration: Lifetime, 11/11... Start Date: 11/11/20 Status: Ordered Colace sodium 100 mg oral capsule 100 mg, 1, capsule, By Mouth, 2 times a day, PRN, # 180 capsule, Refills 0, Tot. Refills 0, Maintenance, for constipation, 07/16/20 15:56:00 EST, Route to Pharmacy Electronically, [facility]/pharmacy #[id number],Partial fill upon patient request, 173, cm, ... Start Date: 07/16/20 Status: Ordered dicyclomine 10 mg oral capsule 1 capsule = 10 mg, By Mouth, 4 times a day, # 56 capsule, 1 Refills, Maintenance, 11/03/20 13:15:00EST, Capsule, [facility]/pharmacy #[id number], Partial fill upon patient request, [...] Refills, Maintenance, 07/16/20 13:50:00 EST, REC Powder, [facility]/pharmacy #[id number], Partial fill upon patient request, 17 Gm By MouthDaily,Instr:dissolve in water before taking, 173, c... Start Date: 07/16/20 Status: Ordered ondansetron 4 mg oral tablet, disintegrating 1 tablet = 4 mg, By Mouth, Every 8 hours, PRN as needed for nausea/vomiting, # 9 tablet, 0 Refills,Maintenance, 11/03/20 13:15:00 EST, DIS Tablet, [facility]/pharmacy #[id number], 173, cm, 11/03/20 12:57:00 EST,Height, 97, kg, 03/29/20 18:07:00 EDT, Dry Weight Start Date: 11/03/20 Stop Date: 11/06/20 Status: Ordered verapamil 40 mg oral tablet 1 tablet = 40 mg, By Mouth, 3 times a day, # 90 tablet, 1 Refills, Maintenance, 11/05/20 17:59:00 EST, Tablet, [facility]/pharmacy #[id number], Partial fill upon patient request if the prescription is for a schedule II opioid drug., 173, cm, 11/05/20 17:02:00 EST,... Start Date: 11/05/20 Status: Ordered Problem List Condition Effective Dates Status Health Status Inform ant Abdominal pain(Confirmed) Active Acne(Confirmed) Active Asthma(Confirmed) Active Intermittent Explosive Disorder(Confirmed) 1 Active Irritable bowel(Confirmed) Active Hepatic cyst, right lobe(Confirmed) 2 01/27/14 [facility] 2Measures 2.4 x 1.9 x 1.7 cm and contains peripheral calcification along its posterior medial aspect Social History Social History Type Response Smoking Status Former smoker, quit more than 30 days ago entered on: 09/21/18 Sex
--- OUTSIDE RECORDS SUMMARY | 2024-06-05 13:26 | XMS_ITS | Continuity of Care Document ---
Author Organization [facility] Address [address] [place] [address]- Care Team Providers Care Anchorman Name Role Phone Zuri Velázquez MD Primary Care Physician [phone] [place] [facility] Date(s): 11/15/23 - 12/15/23 [facility] [address] [facility] [address] [place], [place] [phone] Attending Physician: Vanessa Fontaine Admitting Physician: AdmtrVanessa [...] Refills, Maintenance, 04/10/23 16:04:00 EDT, Cream, [id number], Partial fill upon patient request if the prescription is for a schedule II opioid drug., 1 application Topically 2 times a day,... Start Date: 04/10/23 Status: Ordered ipratropium nasal 21 mcg/inh spray See Instructions, PRN Nasal Congestion, 1 spray each nostril BID, # 1 each, 4 Refills, Maintenance,06/06/23 13:45:00 EDT, [facility]/pharmacy #[id number], Partial fill upon patient request if the prescription isfor a schedule II opioid drug., 1 spray each nostri... Start Date: 06/06/23 Status: Ordered meloxicam 7.5 mg oral tablet 1 tablet = 7.5 mg, By Mouth, Daily, prn pain, take with food, # 30 tablet, 1 Refills, Maintenance, 06/13/23 16:51:00 EDT, Tablet, [facility]/pharmacy #[id number], Partial fill upon patient request if the prescription is for a schedule II opioid drug., 173, cm, 10/... Start Date: 06/13/23 Status: Ordered [place] 0.65% nasal spray 2 sprays, Nares, Both, 4 times a day, # 1 each, 5 Refills, Maintenance, 06/13/23 16:48:00 EDT, [facility]/pharmacy #[id number], Partial fill upon patient [...] 16:46:00 EDT, Route to Pharmacy Electronically, [facility]/pharmacy #[id number], [...] 15:49:00 EST, Aerosol, Route to Pharmacy Electronically, [id number], [facility]/pharmacy #[id number], 173, cm, 07/21/23 14:13:00 EST, Height [...] S Resident Member Role: PCP Address: Address: [address] [place] [address] [place] [address]- Care Team Related Persons Name: NADER CHAVEZ Address: home [address] [place] [address] Name: DIONTE HARRELL Address: home [address] [place] [address] Name: PA, KRISHNA Address: home [address] [place] [address]
--- OUTSIDE RECORDS SUMMARY | 2024-06-05 13:26 | XMS_ITS | Continuity of Care Document ---
Author Organization [facility] Address [address] [place] [address]- Care Team Providers Care Carburetor Expert Name Role Phone Zuri Velázquez MD Primary Care Physician [phone] Encounter [facility] Date(s): 07/11/22 - 10/07/22 [facility] [address] [place] [id number] Attending Physician: Not on Staff, Attending MD [...] 7:39:00 EST, Route to Pharmacy Electronically, [facility]/pharmacy #[id number], Partial fill upon patient request if the prescription is for a schedule II opio... Start Date: 09/10/21 Stop Date: 09/24/21 Status: Ordered nortriptyline 10 mg oral capsule 10 mg, 1, capsule, By Mouth, Daily at bedtime, # 30 capsule, Refills 1, Tot. Refills 1, Maintenance, 07/04/22 15:54:00 EST, Route to Pharmacy Electronically, [facility]/pharmacy #[id number], Partial fill upon patient [...] Team Personnel Name: Zuri Velázquez MD Position: [facility] Resident Member Role: PCP Address: Address: [address] [place] [address] [place] [address]- Care Team Related Persons Name: NADER CHAVEZ Address: home [address] [place] [address] Name: DIONTE HARRELL Address: home [address] [place] [address] Name: KRISHNA PA Address: home [address] [place] [address]
--- OUTSIDE RECORDS SUMMARY | 2024-06-05 13:26 | XMS_ITS | Continuity of Care Document ---
Author Organization [facility] Address [address] [place] [address]- Care Team Providers Care Drop Crew Laborer Name Role Phone Sanjana KAHN, Natalee Rolon Primary Care Physic brian [place] [facility] [place] 04/29/20 - 05/31/20 [facility] [address] [place] [address]- [facility] Attending Physician: Not on Staff, Attending [...] 12:58:17 EDT, Aerosol, Route to Pharmacy Electronically, [id number], [id number] Start Date: 06/20/19 Stop Date: 06/27/19 Status: Ordered amitriptyline 10 mg oral tablet 10 mg, 1, tablet, By Mouth, Daily at bedtime, # 30 tablet, Refills 0, Tot. Refills 0, Maintenance, 05/18/20 19:51:00 EDT, Route to Pharmacy Electronically, [facility]/pharmacy #[id number], 173, cm, 04/29/20 16:50:00 EDT, Height, 97, kg, 03/29/20 18:07:00 EDT, Dry... Start Date: 05/18/20 Status: Ordered famotidine 20 mg oral tablet 20 mg, 1, tablet, By Mouth, Daily, # 90 tablet, Refills 11, Tot. Refills 11, Maintenance, 05/18/20 19:50:00 EDT, Route to Pharmacy Electronically, [facility]/pharmacy #[id number], 173, cm, 04/29/20 16:50:00 EDT, Height, 97, kg, 03/29/20 18:07:00 EDT, Dry Weight Start Date: 05/18/20 Stop Date: 05/03/23 Status: Ordered Problem List Condition Effective Dates Status Health Status Inform ant Abdominal pain(Confirmed) Active Acne(Confirmed) Active Asthma(Confirmed) Active Intermittent Explosive Disorder(Confirmed) 1 Active Irritable bowel(Confirmed) Active Hepatic cyst, right lobe(Confirmed) 2 01/27/14 Active [facility] 2Measures 2.4 x 1.9 x 1.7 cm and contains peripheral calcification along its posterior medial aspect Social History Social History Type Response Smoking Status Former smoker, quit more than 30 days ago entered on: 09/21/18 Sex
--- OUTSIDE RECORDS SUMMARY | 2024-06-05 13:26 | XMS_ITS | Continuity of Care Document ---
Author Organization [facility] Address [address] [place] [address]- Care Team Providers Care Domestic Technician Name Role Phone Zuri Velázquez MD Primary Care Physician [phone] Encounter [facility] Date(s): 11/18/22 - 12/18/22 [facility] [address] [place] [address] Allergies, Adverse Reactions, [...] 10/17/22 9:48:00 EST, Route to Pharmacy Electronically, [facility]/pharmacy #[id number], Partial fill upon patientrequest if the prescription [...] 09/10/21 7:39:00 EST, Route to Pharmacy Electronically, [facility]/pharmacy #[id number], Partial fill upon patient request if the prescription is for a schedule II opio... Start Date: 09/10/21 Stop Date: 09/24/21 Status: Ordered nortriptyline 10 mg oral capsule 10 mg, 1, capsule, By Mouth, Daily at bedtime, # 30 capsule, Refills 1, Tot. Refills 1, Maintenance, 10/17/22 9:25:00 EST, Route to Pharmacy Electronically, [facility]/pharmacy #[id number], Partial fill upon patient request if the prescription is for a schedule II... Start Date: 10/17/22 Status: Ordered SUMAtriptan 25 mg oral tablet 1 tablet = 25 mg, By Mouth, Once, PRN as needed for migraine headache, may repeat dose in 2 hours if needed, # 9 tablet, 2 Refills, Soft Stop, 12/12/22 15:40:00 EDT, [id number], Partial fill upon patient [...] S Resident Member Role: PCP Address: Address: [address] [place] [address]- [place] Care Team Related Persons Name: CHAVEZNADER Address: home [address] [place] [address] Name: DIONTE HARRELL Address: home [address] [place] [address] Name: KRISHNA PA Address: home [address] [place] [address]
--- OUTSIDE RECORDS SUMMARY | 2024-06-05 13:26 | XMS_ITS | Continuity of Care Document ---
Author Organization [facility] Address [address] [place] [address]- Care Team Providers Care Speech Therapy Director Name Role Phone Zuri Velázquez MD Primary Care Physician [id number] Date[facility] - 11/04/23 [facility] [address] [address] Attending Physician: Rony Choudhary MD Admitting Physician: [...] Refills, Maintenance, 04/10/23 16:04:00 EDT, Cream, [id number], Partial fill upon patient request if the prescription is for a schedule II opioid drug., 1 application Topically 2 times a day,... Start Date: 04/10/23 Status: Ordered ipratropium nasal 21 mcg/inh spray See Instructions, PRN Nasal Congestion, 1 spray each nostril BID, # 1 each, 4 Refills, Maintenance,06/06/23 13:45:00 EDT, [facility]/pharmacy #[id number], Partial fill upon patient request if the prescription isfor a schedule II opioid drug., 1 spray each nostri... Start Date: 06/06/23 Status: Ordered meloxicam 7.5 mg oral tablet 1 tablet = 7.5 mg, By Mouth, Daily, prn pain, take with food, # 30 tablet, 1 Refills, Maintenance, 06/13/23 16:51:00 EDT, Tablet, [facility]/pharmacy #[id number], Partial fill upon patient request if the prescription is for a schedule II opioid drug., 173, cm, 10/... Start Date: 06/13/23 Status: Ordered nortriptyline 10 mg oral capsule 10 mg, 1, capsule, By Mouth, Daily at bedtime, for 30 days, # 30 capsule, Refills 1, Tot. Refills 1, Acute 12/04/23 15:11:00 EDT, 10/05/23 15:11:00 EST, Route to Pharmacy Electronically, [facility]/pharmacy#[id number], Partial fill upon patient request if the pre... Start Date: 10/05/23 Stop Date: 12/04/23 Status: Ordered [place] 0.65% nasal spray 2 sprays, Nares, Both, 4 times a day, # 1 each, 5 Refills, Maintenance, 06/13/23 16:48:00 EDT, [facility]/pharmacy #[id number], Partial fill upon patient request [...] 06/13/23 16:46:00 EDT, Route to Pharmacy Electronically, [facility]/pharmacy #[id number], Partial fill upon patient request [...] 15:49:00 EST, Aerosol, Route to Pharmacy Electronically, [id number], [facility]/pharmacy #[id number], 173, cm, 07/21/23 14:13:00 EST, [...] S Resident Member Role: PCP Address: Address: [address] [place] [address] [place] [address]- [place] Care Team Related Persons Name: NADER CHAVEZ Address: home [address] [place] [address] Name: DIONTE HARRELL Address: home [address] [place] [address] Name: KRISHNA PA Address: home [address] [place] [address]
--- OUTSIDE RECORDS SUMMARY | 2024-06-05 13:26 | XMS_ITS | Continuity of Care Document ---
Author Organization [facility] Address [address] [place] [address]- Care Team Providers Care Skiver Sock Linings Name Role Phone Natalee Allan MD Primary Care Physic brian Encounter [facility] Date(s): 04/29/20 - 05/06/20 [facility] [address] [place] [address]- [facility] Encounter Diagnosis Groin pain(Discharge Diagnosis) - 04/29/20 Attending Physician: Zion KAHN, Zack Hoover Referring Physician: Natalee Allan MD Allergies, Adverse [...] 12:58:17 EDT, Aerosol, Route to Pharmacy Electronically, [id number], [facility]/pharmacy #[id number] Start Date: 06/20/19 Stop Date: 06/27/19 Status: Ordered ceftriaxone 250 mg injectable powder for injection = 250 mg, Intramuscular, Once, Lot #: [id number] Exp: 09/2020, # 1 Doses, 0 Refills, Soft Stop, 03/04/19 11:49:13 EDT Start Date: 03/04/19 Status: Ordered docusate sodium 100 mg oral capsule 100 mg, 1, capsule, By Mouth, 2 times a day, PRN, # 20 capsule, Refills 0, Tot. Refills 0, Maintenance, for constipation, 04/03/20 13:10:00 EDT, Route to Pharmacy Electronically, [facility]/pharmacy #[id number], 173, cm, 03/29/20 18:07:00 EDT, [...] Refills, Maintenance, 04/21/20 15:34:00 EDT, REC Powder, [facility]/pharmacy #[id number], 17 Gm By Mouth Daily,PRN:Constipation,Instr:dissolve in water before taking, 173, cm,... Start Date: 04/21/20 Status: Ordered ondansetron 4 mg oral tablet, disintegrating 1 tablet = 4 mg, By Mouth, Every 8 hours, PRN as needed for nausea/vomiting, # 9 tablet, 0 Refills,Maintenance, 03/29/20 21:46:00 EDT, DIS Tablet, [facility]/pharmacy #[id number], 173, cm, 03/29/20 18:07:00 EDT,Height, [...] peripheral calcification along its posterior medial aspect Diagnosis Diagnosis Type Effective Dates Health Status Clini alberto Service Informant Groin pain Discharge Diagnosis 04/29/20 Vital Signs Most recent to oldest [Reference Range]: 1 Height 173 cm (04/29/20 4:50 PM) Oxygen Saturation [94-100 %] 99 % (04/29/20 4:50 PM) Pulse Rate [55-90 bpm] 83 bpm (04/29/20 4:50 PM) Blood Pressure [90-138/55-84 mm Hg] 139/ 60mm Hg *H* (04/29/20 4:50 PM) Respiratory Rate [16-30 br/min] 23 br/mi n (04/29/20 4:50 PM) Mode of Delivery (Oxygen) Room air (04/29/20 4:50 PM) Blood pressure sites Arm, left (04/29/20 4:50 PM) Temperature Route Temporal (04/29/20 4:50 PM) Social History Social History Type Response Smoking Status Former smoker, quit more than 30 days ago entered on: 09/21/18 Sex
--- OUTSIDE RECORDS SUMMARY | 2024-06-05 13:26 | XMS_ITS | Continuity of Care Document ---
Author Organization [facility] Address [address] [place] [address]- Care Team Providers Care Forest Fire Management Officer Name Role Phone Sanjana KAHN, Natalee Rolon Primary Care Physic brian [place] [facility] Date(s): 04/23/20 - 05/24/[address] [address]- [facility] Attending Physician: Fede Alegre Admitting Physician: Fede Alegre Referring Physician: Fede Alegre Allergies, Adverse Reactions, Alerts Substance Reaction Severity [...] 12:58:17 EDT, Aerosol, Route to Pharmacy Electronically, [id number], [id number] Start Date: 06/20/19 Stop Date: 06/27/19 Status: Ordered amitriptyline 10 mg oral tablet 10 mg, 1, tablet, By Mouth, Daily at bedtime, # 30 tablet, Refills 0, Tot. Refills 0, Maintenance, 05/18/20 19:51:00 EDT, Route to Pharmacy Electronically, [id number], 173, cm, 04/29/20 16:50:00 EDT, Height, 97, kg, 03/29/20 18:07:00 EDT, Dry... Start Date: 05/18/20 Status: Ordered famotidine 20 mg oral tablet 20 mg, 1, tablet, By Mouth, Daily, # 90 tablet, Refills 11, Tot. Refills 11, Maintenance, 05/18/20 19:50:00 EDT, Route to Pharmacy Electronically, [facility]/pharmacy #[id number], 173, cm, 04/29/20 16:50:00 EDT, Height, 97, kg, 03/29/20 18:07:00 EDT, Dry Weight Start Date: 05/18/20 Stop Date: 05/03/23 Status: Ordered Problem List Condition Effective Dates Status Health Status Inform ant Abdominal pain(Confirmed) Active Acne(Confirmed) Active Asthma(Confirmed) Active Intermittent Explosive Disorder(Confirmed) 1 Active Irritable bowel(Confirmed) Active Hepatic cyst, right lobe(Confirmed) 2 01/27/14 [facility] 2Measures 2.4 x 1.9 x 1.7 cm and contains peripheral calcification along its posterior medial aspect Social History Social History Type Response Smoking Status Former smoker, quit more than 30 days ago entered on: 09/21/18 Sex
--- OUTSIDE RECORDS SUMMARY | 2024-06-05 13:26 | XMS_ITS | Continuity of Care Document ---
Author Organization [facility] Address [address] [place] [address]- Care Team Providers Care Historic Sites Supervisor Name Role Phone Sanjana KAHN, Natalee Rolon Primary Care Physic brian Encounter [facility] Date(s): 04/30/20 - 05/30/20 [facility] [address] [place] [address]- [facility] Allergies, Adverse Reactions, Alerts Substance Reaction Severity [...] 12:58:17 EDT, Aerosol, Route to Pharmacy Electronically, [id number], [facility]/pharmacy #[id number] Start Date: 06/20/19 Stop Date: 06/27/19 Status: Ordered amitriptyline 10 mg oral tablet 10 mg, 1, tablet, By Mouth, Daily at bedtime, # 30 tablet, Refills 0, Tot. Refills 0, Maintenance, 05/18/20 19:51:00 EDT, Route to Pharmacy Electronically, [facility]/pharmacy #[id number], 173, cm, 04/29/20 16:50:00 EDT, Height, 97, kg, 03/29/20 18:07:00 EDT, Dry... Start Date: 05/18/20 Status: Ordered famotidine 20 mg oral tablet 20 mg, 1, tablet, By Mouth, Daily, # 90 tablet, Refills 11, Tot. Refills 11, Maintenance, 05/18/20 19:50:00 EDT, Route to Pharmacy Electronically, [facility]/pharmacy #[id number], 173, cm, 04/29/20 16:50:00 EDT, Height, [...]
--- OUTSIDE RECORDS SUMMARY | 2024-06-05 13:26 | XMS_ITS | Continuity of Care Document ---
Author Organization [facility] Address [address] [place] [address]- Care Team Providers Care Campaign Consultant Name Role Phone Zuri Velázquez MD Primary Care Physician Encounter [facility] R [id number] Date(s): 04/13/23 - 08/11/23 [facility] [address] [place], [place] [address] Attending Physician: Not on Staff, Attending MD Admitting Physician: Zara KAHN, Randy Luong Referring Physician: Zuri Velázquez MD Allergies, Adverse [...] each, 4 Refills, Maintenance,06/06/23 13:45:00 EDT, [facility]/pharmacy #[id number], Partial fill upon patient request if the prescription isfor a schedule II opioid drug., 1 spray each nostri... Start Date: 06/06/23 Status: Ordered meloxicam 7.5 mg oral tablet 1 tablet = 7.5 mg, By Mouth, Daily, prn pain, take with food, # 30 tablet, 1 Refills, Maintenance, 06/13/23 16:51:00 EDT, Tablet, [facility]/pharmacy #[id number], Partial fill upon patient request if the prescription is for a schedule II opioid drug., 173, cm, 10/... Start Date: 06/13/23 Status: Ordered nortriptyline 50 mg oral capsule 50 mg, 1, capsule, By Mouth, Daily at bedtime, dose increased, take daily for migraine prevention, # 90 capsule, Refills 1, Tot. Refills 1, Maintenance, 04/04/23 15:00:00 EDT, Route to Pharmacy Electronically, [facility]/pharmacy #[id number], Partial fill upon pat... Start Date: 04/04/23 Status: Ordered [place] 0.65% nasal spray 2 sprays, Nares, Both, 4 times a day, # 1 each, 5 Refills, Maintenance, 06/13/23 16:48:00 EDT, [facility]/pharmacy #[id number], Partial fill upon patient request [...] 16:46:00 EDT, Route to Pharmacy Electronically, [facility]/pharmacy #[id number], Partial fill upon patient request [...] 15:49:00 EST, Aerosol, Route to Pharmacy Electronically, [id number], [facility]/pharmacy #[id number], 173, cm, 07/21/23 14:13:00 EST, [...] S Resident Member Role: PCP Address: Address: [address] [place] [address] [place] [address]- Care Team Related Persons Name: NADER CHAVEZ Address: home [address] [place] [address] Name: DIONTE HARRELL Address: home [address] [place] [address] Name: KRISHNA PA Address: home [address] [place] [address]
--- OUTSIDE RECORDS SUMMARY | 2024-06-05 13:26 | XMS_ITS | Continuity of Care Document ---
Author Organization [facility] Address [address] [place] [address]- Care Team Providers Care Account Relationship Manager Name Role Phone Zuri Velázquez MD Primary Care Physician [phone] [place] [facility] Date(s): 05/17/23 - 06/16/23 [facility] [address] [place], [place] [address] Attending Physician: Not on Staff, Attending [...] upon pat... Start Date: 04/04/23 Status: Ordered [place] 0.65% nasal spray 2 sprays, Nares, Both, [...] Team Personnel Name: Zuri Velázquez MD Position: [facility] Resident Member Role: PCP Address: Address: [address] [place] [address] [place] [address]- Care Team Related Persons Name: NADER CHAVEZ Address: home [address] [place] [address] Name: DIONTE HARRELL Address: home [address] [place] [address] Name: KRISHNA PA Address: home [address] [place] [address]
--- OUTSIDE RECORDS SUMMARY | 2024-06-05 13:26 | XMS_ITS | Continuity of Care Document ---
Author Organization [facility] Address [address] [place] [address]- Care Team Providers Care Nurse Practitioner Hospitalist Name Role Phone Zuri Velázquez MD Primary Care Physician [place] [facility] [place](s): 08/01/23 - 08/31/23 [facility] [address] [place], [place] [address] Allergies, Adverse Reactions, Alerts No Known [...] 1 Refills, Maintenance, 06/13/23 16:51:00 EDT, Tablet, [facility]/pharmacy #[id number], Partial fill upon patient request if the prescription is for a schedule II opioid drug., 173, cm, 10/... Start Date: 06/13/23 Status: Ordered nortriptyline 50 mg oral capsule 50 mg, 1, capsule, By Mouth, Daily at bedtime, dose increased, take daily for migraine prevention, # 90 capsule, Refills 1, Tot. Refills 1, Maintenance, 04/04/23 15:00:00 EDT, Route to Pharmacy Electronically, [facility]/pharmacy #[id number], Partial fill upon pat... Start Date: 04/04/23 Status: Ordered [place]oa 0.65% nasal spray 2 sprays, Nares, Both, 4 times a day, # 1 each, 5 Refills, Maintenance, 06/13/23 16:48:00 EDT, [facility]/pharmacy #[id number], Partial fill upon patient [...] 06/13/23 16:46:00 EDT, Route to Pharmacy Electronically, [facility]/pharmacy #[id number], Partial fill upon patient [...] 15:49:00 EST, Aerosol, Route to Pharmacy Electronically, [id number], [facility]/pharmacy #[id number], 173, cm, 07/21/23 14:13:00 [...] Team Personnel Name: Zuri Velázquez MD Position: [facility] Resident Member Role: PCP Address: Address: [address] [place] [address]- Care Team Related Persons Name: NADER CHAVEZ Address: home [address] [place] [address] Name: DIONTE HARRELL Address: home [address] [place] [address] Name: KRISHNA PA Address: home [address] [place] [address]
--- OUTSIDE RECORDS SUMMARY | 2024-06-05 13:26 | XMS_ITS | Continuity of Care Document ---
Author Organization [facility] Address [address] [place] [address]- Care Team Providers Care Landscape Artist Name Role Phone Zuri Velázquez MD Primary Care Physician [phone] Encounter [facility] Date(s): 03/31/23 - 04/30/[address] [address] Allergies, Adverse Reactions, Alerts No Known [...] 5 Refills, Maintenance, 04/10/23 16:04:00 EDT, Cream, [facility]/pharmacy #[id number], Partial fill upon [...] 04/04/23 15:00:00 EDT, Route to Pharmacy Electronically, [facility]/pharmacy #[id number], Partial fill upon pat... [...] Team Personnel Name: Zuri Velázquez MD Position: [facility] Resident Member Role: PCP Address: Address: [address] [place] [address] [place] [address]- Care Team Related Persons Name: NADER CHAVEZ Address: home [address] [place] [address] Name: DIONTE HARRELL Address: home [address] [place] [address] Name: KRISHNA PA Address: home [address] [place] [address]
--- OUTSIDE RECORDS SUMMARY | 2024-06-05 13:26 | XMS_ITS | Continuity of Care Document ---
Author Organization [facility] Address [address] [place] [address]- Care Team Providers Care Mumps Developer Name Role Phone Sanjana KAHN, Natalee Rolon Primary Care Physic brian [facility]counter [facility] Date(s): 01/11/22 - 02/10/22 [facility] [address] [place] [address]- Attending Physician: Vanessa Fontaine Admitting Physician: AdmVanessa [...] 12:58:17 EDT, Aerosol, Route to Pharmacy Electronically, [id number], [facility]/pharmacy #[id number] Start Date: 06/20/19 [...] at least one hour after taking medications [id number] PO TID Dx: I15.9 Duration: Lifetime, 11/11... [...] cyst, right lobe(Confirmed) 2 01/27/14 [facility] 2Measures 2.4 x 1.9 x 1.7 cm and contains peripheral calcification along its posterior medial aspect Social History Social History Type Response Smoking Status Former smoker, quit more than 30 days ago entered on: 09/21/18 Sex
--- OUTSIDE RECORDS SUMMARY | 2024-06-05 13:26 | XMS_ITS | Continuity of Care Document ---
Author Organization [facility] Address [address] [place] [address]- Care Team Providers Care Vice President Of Marketing Name Role Phone Zuri Velázquez MD Primary Care Physician Encounter [facility] Date(s): 07/10/23 - 08/09/23 [facility] [address] [place], [place] [address] Allergies, Adverse Reactions, Alerts [...] 1 each, 4 Refills, Maintenance,06/06/23 13:45:00 EDT, [facility]/pharmacy #[id number], Partial fill upon patient request if the prescription isfor a schedule II opioid drug., 1 spray each nostri... Start Date: 06/06/23 Status: Ordered meloxicam 7.5 mg oral tablet 1 tablet = 7.5 mg, By Mouth, Daily, prn pain, take with food, # 30 tablet, 1 Refills, Maintenance, 06/13/23 16:51:00 EDT, Tablet, [facility]/pharmacy #[id number], Partial fill upon patient request if the prescription is for a schedule II opioid drug., 173, cm, 10/... Start Date: 06/13/23 Status: Ordered nortriptyline 50 mg oral capsule 50 mg, 1, capsule, By Mouth, Daily at bedtime, dose increased, take daily for migraine prevention, # 90 capsule, Refills 1, Tot. Refills 1, Maintenance, 04/04/23 15:00:00 EDT, Route to Pharmacy Electronically, [facility]/pharmacy #[id number], Partial fill upon pat... Start Date: 04/04/23 Status: Ordered [place] 0.65% nasal spray 2 sprays, Nares, Both, 4 times a day, # 1 each, 5 Refills, Maintenance, 06/13/23 16:48:00 EDT, [facility]/pharmacy #[id number], Partial fill upon patient request [...] 06/13/23 16:46:00 EDT, Route to Pharmacy Electronically, [facility]/pharmacy #[id number], Partial fill upon patient request [...] 15:49:00 EST, Aerosol, Route to Pharmacy Electronically, [id number], [facility]/pharmacy #[id number], 173, cm, 07/21/23 14:13:00 EST, [...] S Resident Member Role: PCP Address: Address: [address] [place] [address] [place] [address]- Care Team Related Persons Name: SCOTT NADER Address: home [address] [place] [address] Name: DIONTE HARRELL Address: home [address] [place] [address] Name: KRISHNA PA Address: [address] [place] [address]
--- OUTSIDE RECORDS SUMMARY | 2024-06-05 13:26 | XMS_ITS | Continuity of Care Document ---
Author Organization [facility] Address [address] [place] [address]- Care Team Providers Care Domestic Travel Consultant Name Role Phone Zuri Velázquez MD Primary Care Physician Encounter [facility] Date(s): 09/05/23 - 10/22/23 [facility] [address] [place], [place] [address] Attending Physician: Not on [...] Refills, Maintenance, 04/10/23 16:04:00 EDT, Cream, [id number], Partial fill upon patient request if the prescription is for a schedule II opioid drug., 1 application Topically 2 times a day,... Start Date: 04/10/23 Status: Ordered ipratropium nasal 21 mcg/inh spray See Instructions, PRN Nasal Congestion, 1 spray each nostril BID, # 1 each, 4 Refills, Maintenance,06/06/23 13:45:00 EDT, [facility]/pharmacy #[id number], Partial fill upon patient request if the prescription isfor a schedule II opioid drug., 1 spray each nostri... Start Date: 06/06/23 Status: Ordered meloxicam 7.5 mg oral tablet 1 tablet = 7.5 mg, By Mouth, Daily, prn pain, take with food, # 30 tablet, 1 Refills, Maintenance, 06/13/23 16:51:00 EDT, Tablet, [facility]/pharmacy #[id number], Partial fill upon patient request if the prescription is for a schedule II opioid drug., 173, cm, 10/... Start Date: 06/13/23 Status: Ordered nortriptyline 10 mg oral capsule 10 mg, 1, capsule, By Mouth, Daily at bedtime, for 30 days, # 30 capsule, Refills 1, Tot. Refills 1, Acute 12/04/23 15:11:00 EDT, 10/05/23 15:11:00 EST, Route to Pharmacy Electronically, [facility]/pharmacy#[id number], Partial fill upon patient request if the pre... Start Date: 10/05/23 Stop Date: 12/04/23 Status: Ordered [place] 0.65% nasal spray 2 sprays, Nares, Both, 4 times a day, # 1 each, 5 Refills, Maintenance, 06/13/23 16:48:00 EDT, [facility]/pharmacy #[id number], Partial fill upon patient request [...] 06/13/23 16:46:00 EDT, Route to Pharmacy Electronically, [facility]/pharmacy #[id number], Partial fill upon patient request if the prescription is for a schedule II opioid drQuin. Start Date: 06/13/23 Status: Ordered Readi-Cat 2 [...] 15:49:00 EST, Aerosol, Route to Pharmacy Electronically, [id number], [facility]/pharmacy #[id number], 173, cm, 07/21/23 14:13:00 EST, [...] S Resident Member Role: PCP Address: Address: [address] [place] [address] [place] [address]- [place] Care Team Related Persons Name: SCOTT NADER Address: home [address] [place] [address] Name: DIONTE HARRELL Address: home [address] [place] [address] Name: KRISHNA PA Address: [address] [place] [address]
--- OUTSIDE RECORDS SUMMARY | 2024-06-05 13:26 | XMS_ITS | Continuity of Care Document ---
Author Organization [facility] Address [address] [place] [address]- Care Team Providers Care Agate Setter Name Role Phone Yehuad Bernal MD Primary Care Physician [phone] [place] [facility] [place]24 - 05/10/24 [facility] [address] [place], [place] [phone] Allergies, Adverse Reactions, Alerts No Known Allergies [...] Refills, Maintenance, 04/10/23 16:04:00 EDT, Cream, [id number], Partial fill upon patient request if the prescription is for a schedule II opioid drug., 1 application Topically 2 times a day,... Start Date: 04/10/23 Status: Ordered cetirizine 10 mg oral tablet 1 tablet = 10 mg, By Mouth, Daily, # 30 tablet, 0 Refills, Maintenance, 05/01/24 16:43:00 EDT, Tablet, [facility]/pharmacy #[id number], Partial fill upon patient request if the prescription is for a schedule II opioid drug., 173, cm, 05/01/24 16:22:00 EDT, Height Start Date: 05/01/24 Status: Ordered Flonase Allergy Relief 50 mcg/inh nasal spray 1 sprays = 50 mcg, Nares, Both, Daily, shake well before using, # 9.9 mL, 0 Refills, Maintenance, 05/01/24 16:43:00 EDT, [place], [id number], Partial fill upon patient request [...] Acute 01/26/25 16:40:00 EDT, 05/01/24 16:40:00 EDT, [facility]/pharmacy #[id number], Partial fill upon patient request if the prescription is for a schedule II opioid drug., 173, cm, 05/01/24... Start Date: 05/01/24 Stop Date: 01/26/25 Status: Ordered meloxicam 7.5 mg oral tablet 1 tablet = 7.5 mg, By Mouth, Daily, prn pain, take with food, # 30 tablet, 1 Refills, Maintenance, 06/13/23 16:51:00 EDT, Tablet, [facility]/pharmacy #[id number], Partial fill upon patient request if the prescription is for a schedule II opioid drug., 173, cm, .. Start Date: 06/13/23 Status: Ordered [place] 0.65% nasal spray 2 sprays, Nares, Both, 4 times a day, # 1 each, 5 Refills, Maintenance, 06/13/23 16:48:00 EDT, [facility]/pharmacy #[id number], Partial [...] 06/13/23 16:46:00 EDT, Route to Pharmacy Electronically, [facility] 2 Refills, Maintenance, 05/01/24 16:40:00 EDT, Tablet, [facility]/pharmacy #[id number], Partial fill upon patient request if the prescription is for a schedule II opioid drug., 173, cm, 05/01/24 16:22:00 EDT, Height Start Date: 05/01/24 Stop Date: 01/26/25 Status: Ordered Symbicort 80mcg/4.5mcg Inhaler 2, puffs, Inhalation, 2 times a day, # 10.2 Gm, Refills 2, Tot. Refills 2, Maintenance, 07/21/23 15:49:00 EST, Aerosol, Route to Pharmacy Electronically, [id number], [facility]/pharmacy #[id number], 173, cm, 07/21/23 14:13:00 [...] Team Personnel Name: Yehuda Bernal MD Position: [facility] Resident Member Role: PCP Address: Address: [address] [place] [address]- Care Team Related Persons Name: NADER CHAVEZ Address: home [address] [place] [address] Name: DIONTE HARRELL Address: home [address] [place] [address] Name: KRISHNA PA Address: home [address] [place] [address]
--- OUTSIDE RECORDS SUMMARY | 2024-06-05 13:26 | XMS_ITS | Continuity of Care Document ---
Author Organization [facility] Address [address] [place] [address]- Care Team Providers Care Bioinformatics Software Engineer Name Role Phone Zuri Velázquez MD Primary Care Physician Encounter [facility] Date(s): 06/09/22 - 07/09/22 [facility] [address] [place] [id number] Attending Physician: Not on Staff, Attending [...] 09/10/21 7:39:00 EST, Route to Pharmacy Electronically, [facility]/pharmacy #[id number], Partial fill upon patient request if the prescription is for a schedule II opio... Start Date: 09/10/21 Stop Date: 09/24/21 Status: Ordered nortriptyline 10 mg oral capsule 10 mg, 1, capsule, By Mouth, Daily at bedtime, # 30 capsule, Refills 1, Tot. Refills 1, Maintenance, 07/04/22 15:54:00 EST, Route to Pharmacy Electronically, [facility]/pharmacy [...] Resident Member Role: PCP Address: Address: [address] [place] [address] [place] [address]- Care Team Related Persons Name: NADER CHAVEZ Address: home [address] [place] [address] Name: DIONTE HARRELL Address: home [address] [place] [address] Name: KRISHNA PA Address: home [address] [place] [address]
--- OUTSIDE RECORDS SUMMARY | 2024-06-05 13:26 | XMS_ITS | Continuity of Care Document ---
Author Organization [facility] Address [address] [place] [address]- Care Team Providers Care Youth Officer Name Role Phone Sanjana KAHN, Natalee Rolon Primary Care Physic brian [facility] Date(s): 02/17/20 - 03/19/20 [facility] [address] [place] [address]- [facility] Attending Physician: Not on Staff, Attending MD [...] 12:58:17 EDT, Aerosol, Route to Pharmacy Electronically, [id number], [facility]/pharmacy #[id number] Start Date: 06/20/19 Stop Date: 06/27/19 Status: Ordered ceftriaxone 250 mg injectable powder for injection = 250 mg, Intramuscular, Once, Lot #: [id number] Exp: 09/2020, # 1 Doses, 0 Refills, [...]
--- OUTSIDE RECORDS SUMMARY | 2024-06-05 13:26 | XMS_ITS | Continuity of Care Document ---
Author Organization [facility] Address [address] [place] [address]- Care Team Providers Care Sybase Developer Name Role Phone Sanjana KAHN, Natalee Rolon Primary Care Physic brian Encounter [facility] ACCT R [id number] Date(s): 09/16/20 - 10/16/[address] [address]- Attending Physician: Vanessa Fontaine Admitting Physician: AdmVanessa [...] 12:58:17 EDT, Aerosol, Route to Pharmacy Electronically, [id number], [facility]/pharmacy #[id number] Start Date: 06/20/19 Stop Date: 06/27/19 Status: Ordered amLODIPine 5 mg oral tablet 5 mg, 1, tablet, By Mouth, Daily, # 30 tablet, Refills 3, Tot. Refills 3, Maintenance, 11/19/20 13:50:00 EST, Route to Pharmacy Electronically, [facility]/pharmacy [...] Refills, Maintenance, 07/16/20 13:50:00 EST, REC Powder, [facility]/pharmacy #[id number], Partial fill upon patient request, 17 [...]
--- OUTSIDE RECORDS SUMMARY | 2024-06-05 13:26 | XMS_ITS | Continuity of Care Document ---
Author Organization [facility] Address [address] [place] [address]- Care Team Providers Care Color Separation Photographer Name Role Phone Sanjana KAHN, Natalee Rolon Primary Care Physic brian Encounter [facility] Date(s): 12/03/20 - 01/07/21 [facility] [address] [place] [address]- Attending Physician: Zion Almeida Admitting Physician: Zion Almeida Allergies, Adverse Reactions, Alerts Substance Reaction Severity [...] 12:58:17 EDT, Aerosol, Route to Pharmacy Electronically, [id number], [facility]/pharmacy #[id number] Start Date: 06/20/19 Stop Date: 06/27/19 Status: Ordered amLODIPine 5 mg oral tablet 5 mg, 1, tablet, By Mouth, Daily, # 30 tablet, Refills 3, Tot. Refills 3, Maintenance, 07/16/20 13:50:00 EST, Route to Pharmacy Electronically, [facility]/pharmacy #[id number], Partial fill upon patient request, 173, cm, 06/08/20 10:54:00 EDT, Height, 97, kg, 080... Start Date: 07/16/20 Status: Ordered Blood Pressure Monitor Blood Pressure Monitor, See Instructions, # 1 each, Refills 0, Tot. Refills 0, Maintenance, Blood Pressure Monitor Check blood pressure once a day at least one hour after taking medications [id number] PO TID Dx: I15.9 Duration: Lifetime, 11/11... Start Date: 11/11/20 Status: Ordered Colace sodium 100 mg oral capsule 100 mg, 1, capsule, By Mouth, 2 times a day, PRN, # 180 capsule, Refills 0, Tot. Refills 0, Maintenance, for constipation, 07/16/20 15:56:00 EST, Route to Pharmacy Electronically, [facility]/pharmacy #[id number],Partial fill upon patient request, 173, cm, ... Start Date: 07/16/20 Status: Ordered dicyclomine 10 mg oral capsule 1 capsule = 10 mg, By Mouth, 4 times a day, # 56 capsule, 1 Refills, Maintenance, 11/03/20 13:15:00EST, Capsule, [facility]/pharmacy #[id number], Partial fill upon patient request, 173, cm, 11/03/20 12:57:00 EST, Height, 97, kg, 03/29/20 18:07:00 EDT, Dry Weight Start Date: 11/03/20 Stop Date: 12/01/20 Status: Ordered famotidine 20 mg oral tablet 20 mg, 1, tablet, By Mouth, Daily, # 90 tablet, Refills 11, Tot. Refills 11, Maintenance, 10/28/20 14:31:00 EST, Route to Pharmacy Electronically, [facility]/pharmacy #[id number], 173, cm, 10/28/20 13:50:00 [...] 1 Refills, Maintenance, 11/05/20 17:59:00 EST, Tablet, [facility]/pharmacy #[id number], Partial fill upon patient request if the prescription is for a schedule II opioid drug., 173, cm, 11/05/20 17:02:00 EST,... Start Date: 11/05/20 Status: Ordered Problem List Condition Effective Dates Status Health Status Inform ant Abdominal pain(Confirmed) Active Acne(Confirmed) Active Asthma(Confirmed) Active Intermittent Explosive Disorder(Confirmed) 1 Active Irritable bowel(Confirmed) Active Hepatic cyst, right lobe(Confirmed) 2 01/27/14 Active [facility] 2Measures 2.4 x 1.9 x 1.7 cm and contains peripheral calcification along its posterior medial aspect Social History Social History Type Response Smoking Status Former smoker, quit more than 30 days ago entered on: 09/21/18 Sex
--- OUTSIDE RECORDS SUMMARY | 2024-06-05 13:26 | XMS_ITS | Continuity of Care Document ---
Author Organization [facility] Address [address] [place] [address]- Care Team Providers Care Acid Concentrator Name Role Phone Zuri Velázquez MD Primary Care Physician [phone] Encounter [facility] ACCT R [id number] Date(s): 06/26/23 - 07/26/[address] [address] Attending Physician: Vanessa Fontaine Admitting Physician: Admtr, [id number] Referring Physician: Admtr, [...] 1 each, 4 Refills, Maintenance,06/06/23 13:45:00 EDT, [facility]/pharmacy #[id number], Partial fill upon patient request if the prescription isfor a schedule II opioid drug., 1 spray each nostri... Start Date: 06/06/23 Status: Ordered meloxicam 7.5 mg oral tablet 1 tablet = 7.5 mg, By Mouth, Daily, prn pain, take with food, # 30 tablet, 1 Refills, Maintenance, 06/13/23 16:51:00 EDT, Tablet, [facility]/pharmacy #[id number], Partial fill upon patient request if the prescription is for a schedule II opioid drug., 173, cm, 10/... Start Date: 06/13/23 Status: Ordered nortriptyline 50 mg oral capsule 50 mg, 1, capsule, By Mouth, Daily at bedtime, dose increased, take daily for migraine prevention, # 90 capsule, Refills 1, Tot. Refills 1, Maintenance, 04/04/23 15:00:00 EDT, Route to Pharmacy Electronically, [facility]/pharmacy #[id number], Partial fill upon pat... Start Date: 04/04/23 Status: Ordered [place] 0.65% nasal spray 2 sprays, Nares, Both, 4 times a day, # 1 each, 5 Refills, Maintenance, 06/13/23 16:48:00 EDT, [facility]/pharmacy #[id number], Partial fill upon patient [...] EDT, Route to Pharmacy Electronically, [facility]/pharmacy #[id number], Partial fill upon patient [...] 15:49:00 EST, Aerosol, Route to Pharmacy Electronically, [id number], [facility]/pharmacy #[id number], 173, cm, 07/21/23 14:13:00 [...] S Resident Member Role: PCP Address: Address: [address] [place] [address] [place] [address]- Care Team Related Persons Name: NADER CHAVEZ Address: home [address] [place] [address] Name: DIONTE HARRELL Address: home [address] [place] [address] Name: KRISHNA PA Address: home [address] [place] [id number]
--- OUTSIDE RECORDS SUMMARY | 2024-06-05 13:26 | XMS_ITS | Continuity of Care Document ---
Author Organization [facility] Address [address] [place] [address]- Care Team Providers Care Nutrition Teacher Name Role Phone Yehuda Bernal MD Primary Care Physician [place] [facility] [place]/23[place] - 05/24/24 [facility] [address] [place], [place] [phone] Attending Physician: Randy Zuñiga MD Admitting Physician: [...] 1Admin Note: VIS DATED 02/27/2012 GIVEN. Medications baclofen 10 mg oral tablet 10 mg, 1, tablet, By Mouth, 3 times a day, for pain, # 30 tablet, Refills 0, Tot. Refills 0, Maintenance, 05/20/24 17:05:00 EDT, Route to Pharmacy Electronically, [facility]/pharmacy #[id number], Partial fill upon patient request if the prescription is for a sched... Start Date: 05/20/24 Stop Date: 05/30/24 Status: Ordered Blood Pressure Monitor See Instructions, # 1 each, Maintenance, Measure blood pressure daily and keep log for management of hypertension Dx: Hypertension ICD I10 Duration: Lifetime, 10/09/23 16:41:00 EST, Supply Start Date: 10/09/23 Status: Ordered capsaicin 0.025% topical cream 1 application, Topically, 2 times a day, # 45 Gm, 5 Refills, Maintenance, 04/10/23 16:04:00 EDT, Cream, [facility]/pharmacy #[id number], Partial fill upon patient request if the prescription is for a schedule II opioid drug., 1 application Topically 2 times a day,... Start Date: 04/10/23 Status: Ordered cetirizine 10 mg oral tablet 1 tablet = 10 mg, By Mouth, Daily, # 30 tablet, 0 Refills, Maintenance, 05/01/24 16:43:00 EDT, Tablet, [facility]/pharmacy #[id number], Partial fill upon patient request if the prescription is for a schedule II opioid drug., 173, cm, 05/01/24 16:22:00 EDT, Height Start Date: 05/01/24 Status: Ordered Flonase Allergy Relief 50 mcg/inh nasal spray 1 sprays = 50 mcg, Nares, Both, Daily, shake well before using, # 9.9 mL, 0 Refills, Maintenance, 05/01/24 16:43:00 EDT, [place], [facility]/pharmacy #[id number], Partial fill upon patient [...] 05/01/24 Stop Date: 01/26/25 Status: Ordered meloxicam 15 mg oral tablet 1 tablet = 15 mg, By Mouth, Daily, for pain take with food, # 30 tablet, 0 Refills, Maintenance, 05/20/24 17:04:00 EDT, [facility]/pharmacy #[id number], Partial fill upon patient request if the prescription is for a schedule II opioid drug., 173, cm, 05/20/24 16:... Start Date: 05/20/24 Status: Ordered meloxicam 7.5 mg oral tablet 1 tablet = 7.5 mg, By Mouth, Daily, prn pain, take with food, # 30 tablet, 1 Refills, Maintenance, 06/13/23 16:51:00 EDT, Tablet, [facility]/pharmacy #[id number], Partial fill upon patient request if the prescription is for a schedule II opioid drug., 173, cm, ... Start Date: 06/13/23 Status: Ordered [place] 0.65% nasal spray 2 sprays, Nares, Both, 4 times a day, # 1 each, 5 Refills, Maintenance, 06/13/23 16:48:00 EDT, [facility]/pharmacy #[id number], Partial fill upon patient [...] 06/13/23 16:46:00 EDT, Route to Pharmacy Electronically, [facility]/pharmacy #[id number], Partial fill upon patient [...] 2 Refills, Maintenance, 05/01/24 16:40:00 EDT, Tablet, [facility]/pharmacy #[id number], Partial fill upon patient request if the prescription is for a schedule II opioid drug., 173, cm, 05/01/24 16:22:00 EDT, Height Start Date: 05/01/24 Stop Date: 01/26/25 Status: Ordered Symbicort 80mcg/4.5mcg Inhaler 2, puffs, Inhalation, 2 times a day, # 10.2 Gm, Refills 2, Tot. Refills 2, Maintenance, 07/21/23 15:49:00 EST, Aerosol, Route to Pharmacy Electronically, [id number], [facility]/pharmacy #[id number], 173, cm, 07/21/23 14:13:00 EST, [...] Team Personnel Name: Yehuda Bernal MD Position: [facility] Resident Member Role: PCP Address: Address: [address] [place] [address] [place] [address]- [place] Care Team Related Persons Name: NADER CHAVEZ Address: home [address] [place] [address] Name: DIONTE HARRELL Address: home [address] [place] [address] Name: KRISHNA PA Address: home [address] [place] [address]
--- OUTSIDE RECORDS SUMMARY | 2024-06-05 13:26 | XMS_ITS | Continuity of Care Document ---
Author Organization [facility] Address [address] [place] [address]- Care Team Providers Care Hr Leader Name Role Phone Zuri Velázquez MD Primary Care Physician [place] [facility] 05/17/23 - 06/16/23 [facility] [address] [place] [address] Allergies, Adverse Reactions, Alerts No [...] Refills, Maintenance, 06/13/23 16:51:00 EDT, Tablet, [facility]/pharmacy #[id number], Partial fill upon patient request if the prescription is for a schedule II opioid drug., 173, cm, 10/... Start Date: 06/13/23 Status: Ordered nortriptyline 50 mg oral capsule 50 mg, 1, capsule, By Mouth, Daily at bedtime, dose increased, take daily for migraine prevention, # 90 capsule, Refills 1, Tot. Refills 1, Maintenance, 04/04/23 15:00:00 EDT, Route to Pharmacy Electronically, [facility]/pharmacy #[id number], Partial fill upon pat... Start Date: 04/04/23 Status: Ordered [place] 0.65% nasal spray 2 sprays, Nares, Both, 4 times a day, # 1 each, 5 Refills, Maintenance, 06/13/23 16:48:00 EDT, [facility]/pharmacy #[id number], Partial fill upon patient request [...] 16:46:00 EDT, Route to Pharmacy Electronically, [facility]/pharmacy #[id number], Partial fill upon patient request [...] Resident Member Role: PCP Address: Address: [address] [place] [address] [place] [address]- Care Team Related Persons Name: NADER CHAVEZ Address: home [address] [place] [address] Name: DIONTE HARRELL Address: home [address] [place] [address] Name: KRISHNA PA Address: home [address] [place] [address]
--- OUTSIDE RECORDS SUMMARY | 2024-06-05 13:26 | XMS_ITS | Continuity of Care Document ---
Author Organization [facility] Address [address] [place] [address] Care Team Providers Care Merchandise Buyer Name Role Phone Zuri Velázquez MD Primary Care Physician [phone] [facility]counter [facility] Date(s): 10/26/22 - 11/25/22 [facility] [address] [place] [address] Allergies, Adverse Reactions, Alerts No Known [...] 10/17/22 9:48:00 EST, Route to Pharmacy Electronically, [facility]/pharmacy #[id number], Partial fill upon patientrequest if the prescription [...] 1 Refills, Maintenance, 10/17/22 9:33:00 EST, Solution, [facility]/pharmacy #[id number], Partial fill upon patient [...] 10/17/22 9:25:00 EST, Route to Pharmacy Electronically, [facility]/pharmacy [...] S Resident Member Role: PCP Address: Address: [address] [place] [address] [place] [address]- Care Team Related Persons Name: NADER CHAVEZ Address: home [address] [place] [address] Name: DIONTE HARRELL Address: home [address] [place] [address] Name: KRISHNA PA Address: home [address] [place] [address]
--- OUTSIDE RECORDS SUMMARY | 2024-06-05 13:26 | XMS_ITS | Continuity of Care Document ---
Author Organization [facility] Address [address] [place] [address]- Care Team Providers Care Audiovisual Tech Name Role Phone Zuri Velázquez MD Primary Care Physician Encounter [facility] Date(s): 09/21/22 - 01/19/23 [facility] [address] [address] Attending Physician: Vesna Choudhary MD Admitting Physician: Vesna Choudhary MD Referring Physician: Kanu WONG, Celina Choi Allergies, [...] 10/17/22 9:48:00 EST, Route to Pharmacy Electronically, [facility]/pharmacy #[id number], Partial fill upon patientrequest if the prescription [...] 2 Refills, Soft Stop, 12/12/22 15:40:00 EDT, [facility]/pharmacy #[id number], Partial fill upon patient request if the [...] Team Personnel Name: Zuri Velázquez MD Position: [facility] Resident Member Role: PCP Address: Address: [address] [place] [address] [place] [address]- Care Team Related Persons Name: NADER CHAVEZ Address: home [address] [place] [address] Name: DIONTE HARRELL Address: home [address] [place] [address] Name: KRISHNA PA Address: [address] [place] [address]
--- OUTSIDE RECORDS SUMMARY | 2024-06-05 13:26 | XMS_ITS | Continuity of Care Document ---
Author Organization [facility] Address [address] [place] [address]- Care Team Providers Care Field Crop Grower Name Role Phone Zuri Velázquez MD Primary Care Physician [place] [facility] [place]): [place]18[place]22 - 12/21/22 [facility] [address] [place] [address] Attending Physician: Randy Zuñiga MD Admitting Physician: [...] 10/17/22 9:48:00 EST, Route to Pharmacy Electronically, [facility]/pharmacy #[id number], Partial fill upon patientrequest if the prescription [...] 1 Refills, Maintenance, 10/17/22 9:33:00 EST, Solution, [facility]/pharmacy #[id number], Partial fill upon patient request if the prescription is for a schedule II opioid drug., 1 application Topically 2 times a da... Start Date: 10/17/22 Stop Date: 11/14/22 Status: Ordered famotidine 20 mg oral tablet 20 mg, 1, tablet, By Mouth, 2 times a day, # 28 tablet, Refills 0, Tot. Refills 0, Maintenance, 09/10/21 7:39:00 EST, Route to Pharmacy Electronically, [facility]/pharmacy #[id number], Partial fill upon patient request if the prescription is for a schedule II opio... Start Date: 09/10/21 Stop Date: 09/24/21 Status: Ordered nortriptyline 10 mg oral capsule 10 mg, 1, capsule, By Mouth, Daily at bedtime, # 30 capsule, Refills 1, Tot. Refills 1, Maintenance, 10/17/22 9:25:00 EST, Route to Pharmacy Electronically, [facility]/pharmacy #[id number], Partial fill upon patient request if the prescription is for a schedule II... Start Date: 10/17/22 Status: Ordered SUMAtriptan 25 mg oral tablet 1 tablet = 25 mg, By Mouth, Once, PRN as needed for migraine headache, may repeat dose in 2 hours if needed, # 9 tablet, 2 Refills, Soft Stop, 12/12/22 15:40:00 EDT, [facility]/pharmacy #[id number], Partial fill upon patient request [...] Team Personnel Name: Zuri Velázquez MD Position: [facility] Resident Member Role: PCP Address: Address: [address] [place] [address] [place] [address]- [place] Care Team Related Persons Name: NADER CHAVEZ Address: home [address] [place] [address] Name: DIONTE HARRELL Address: home [address] [place] [address] Name: KRISHNA PA Address: home [address] [place] [address]
--- OUTSIDE RECORDS SUMMARY | 2024-06-05 13:27 | XMS_ITS | Continuity of Care Document ---
Author Organization [facility] Address [address] [place] [address]- Care Team Providers Care Servicer Name Role Phone Zuri Velázquez MD Primary Care Physician [place] [facility] [place] 09/09/23 [facility] [address] [place], [place] [address] Allergies, Adverse Reactions, Alerts No Known [...] 1 Refills, Maintenance, 06/13/23 16:51:00 EDT, Tablet, [facility]/pharmacy #[id number], Partial fill upon patient request if the prescription is for a schedule II opioid drug., 173, cm, 10/... Start Date: 06/13/23 Status: Ordered nortriptyline 50 mg oral capsule 50 mg, 1, capsule, By Mouth, Daily at bedtime, dose increased, take daily for migraine prevention, # 90 capsule, Refills 1, Tot. Refills 1, Maintenance, 04/04/23 15:00:00 EDT, Route to Pharmacy Electronically, [facility]/pharmacy #[id number], Partial fill upon pat... Start Date: 04/04/23 Status: Ordered [place] 0.65% nasal spray 2 sprays, Nares, Both, 4 times a day, # 1 each, 5 Refills, Maintenance, 06/13/23 16:48:00 EDT, [facility]/pharmacy #[id number], Partial fill upon patient [...] 06/13/23 16:46:00 EDT, Route to Pharmacy Electronically, [facility]/pharmacy #[id number], Partial fill upon patient [...] 15:49:00 EST, Aerosol, Route to Pharmacy Electronically, [id number], [facility]/pharmacy #[id number], 173, cm, 07/21/23 14:13:00 [...] Team Personnel Name: Zuri Velázquez MD Position: [facility] Resident Member Role: PCP Address: Address: [address] [place] [address]- Care Team Related Persons Name: NADER CHAVEZ Address: home [address] [place] [address] Name: DIONTE HARRELL Address: home [address] [place] [address] Name: KRISHNA PA Address: home [address] [place] [address]
--- OUTSIDE RECORDS SUMMARY | 2024-06-05 13:27 | XMS_ITS | Continuity of Care Document ---
Author Organization [facility] Address [address] [place] [address]- Care Team Providers Care Senior Sql Server Dba Name Role Phone Eber KAHN, Zuri Primary Care Physician [phone] [facility]counter [facility] Date[facility]s): 04/20/23 - 05/20/23 [facility] [address] [place] [id number] Allergies, Adverse Reactions, Alerts No [...] 5 Refills, Maintenance, 04/10/23 16:04:00 EDT, Cream, [facility]/pharmacy #[id number], Partial fill upon patient [...] 04/04/23 15:00:00 EDT, Route to Pharmacy Electronically, [facility]/pharmacy #[id number], Partial fill upon pat... [...] Name: Zuri Velázquez MD Position: [facility] Resident Member Role: PCP Address: Address: [address] [place] [address] [place] [address]- Care Team Related Persons Name: NADER CHAVEZ Address: home [address] [place] [address] Name: DIONTE HARRELL Address: home [address] [place] [address] Name: KRISHNA PA Address: home [address] [place] [address]
--- OUTSIDE RECORDS SUMMARY | 2024-06-05 13:27 | XMS_ITS | Continuity of Care Document ---
Author Organization [facility] Address [address] [place] [address]- Care Team Providers Care Health Aid Name Role Phone Sanjana KAHN, Natalee Rolon Primary Care Physic brian [facility]counter [facility] Date(s): 07/16/20 - 08/15/20 [facility] [address] [place] [address]- Attending Physician: Vanesas Fontaine Admitting Physician: AdmVanessa mathur Referring Physician: [...] 12:58:17 EDT, Aerosol, Route to Pharmacy Electronically, [id number], [facility]/pharmacy #[id number] Start Date: 06/20/19 Stop Date: 06/27/19 Status: Ordered amLODIPine 5 mg oral tablet 5 mg, 1, tablet, By Mouth, Daily, # 30 tablet, Refills 3, Tot. Refills 3, Maintenance, 07/16/20 13:50:00 EST, Route to Pharmacy Electronically, [facility]/pharmacy #[id number], Partial fill upon patient request, 173, cm, 06/08/20 10:54:00 EDT, Height, 97, kg, 080... Start Date: 07/16/20 Status: Ordered Colace sodium 100 mg oral capsule 100 mg, 1, capsule, By Mouth, 2 times a day, PRN, # 180 capsule, Refills 0, Tot. Refills 0, Maintenance, for constipation, 07/16/20 15:56:00 EST, Route to Pharmacy Electronically, [facility]/pharmacy #[id number],Partial fill upon patient request, 173, cm, ... Start Date: 07/16/20 Status: Ordered dicyclomine 10 mg oral capsule 1 capsule = 10 mg, By Mouth, 4 times a day, # 56 capsule, 0 Refills, Maintenance, 07/16/20 13:50:00EST, Capsule, [facility]/pharmacy #[id number], Partial fill upon patient request, 173, cm, 06/08/20 10:54:00 EDT, Height, 97, kg, 03/29/20 18:07:00 EDT, Dry Weight Start Date: 07/16/20 Stop Date: 07/30/20 Status: Ordered famotidine 20 mg oral tablet 20 mg, 1, tablet, By Mouth, Daily, # 90 tablet, Refills 11, Tot. Refills 11, Maintenance, 05/18/20 19:50:00 EDT, Route to Pharmacy Electronically, [facility]/pharmacy #[id number], 173, cm, 04/29/20 16:50:00 EDT, Height, 97, kg, 03/29/20 18:07:00 EDT, Dry Weight Start Date: 05/18/20 Stop Date: 05/03/23 Status: Ordered MiraLax oral powder for reconstitution = 17 Gm, By Mouth, Daily, dissolve in water before taking, # 1,530 Gm, 0 Refills, Maintenance, 07/16/20 13:50:00 EST, REC Powder, [facility]/pharmacy #[id number], Partial fill upon patient request, 17 Gm By MouthDaily,Instr:dissolve in water before taking, 173, c... Start Date: 07/16/20 Status: Ordered Problem List Condition Effective Dates Status Health Status Inform ant Abdominal pain(Confirmed) Active Acne(Confirmed) Active Asthma(Confirmed) Active Intermittent Explosive Disorder(Confirmed) 1 Active Irritable bowel(Confirmed) Active Hepatic cyst, right lobe(Confirmed) 2 01/27/14 Active 1[facility] 2Measures 2.4 x 1.9 x 1.7 cm and contains peripheral calcification along its posterior medial aspect Social History Social History Type Response Smoking Status Former smoker, quit more than 30 days ago entered on: 09/21/18 Sex
--- OUTSIDE RECORDS SUMMARY | 2024-06-05 13:27 | XMS_ITS | Continuity of Care Document ---
Author Organization [facility] Address [address] [place] [address]- Care Team Providers Care Director Treasurer Name Role Phone Zrui Velázquez MD Primary Care Physician [phone] Encounter [facility] [place] Date(s): 12/20/22 - 01/19/23 [facility] [address] [place] [address] Allergies, Adverse Reactions, Alerts [...] 10/17/22 9:48:00 EST, Route to Pharmacy Electronically, [facility]/pharmacy #[id number], Partial fill upon patientrequest if the prescription [...] 2 Refills, Soft Stop, 12/12/22 15:40:00 EDT, [facility]/pharmacy #[id number], Partial fill upon patient request if the [...] CENTER Resident Member Role: PCP Address: Address: [address] [place] [address] [place] [address]- Care Team Related Persons Name: NADER CHAVEZ Address: home [address] [place] [address] Name: DIONTE HARRELL Address: home [address] [place] [address] Name: KRISHNA PA Address: home [address] [place] [address]
--- OUTSIDE RECORDS SUMMARY | 2024-06-05 13:27 | XMS_ITS | Continuity of Care Document ---
Author Organization [facility] Address [address] [place] [address]- Care Team Providers Care Proof Coin Collector Name Role Phone Sanjana KAHN, Natalee Rolon Primary Care Physic brian Encounter [facility] Date(s): 09/10/21 - 09/10/[address] [address]- Encounter Diagnosis Chest pain(Final) - 09/10/21 Discharge Disposition: A-D/C Home Attending Physician: Shaggy Webb MD Admitting Physician: Shaggy Webb MD Referring Physician: Not on Staff, Referring MD Allergies, Adverse Reactions, Alerts No Known [...] 12:58:17 EDT, Aerosol, Route to Pharmacy Electronically, [id number], [facility]/pharmacy #[id number] Start Date: 06/20/19 Stop Date: 06/27/19 Status: Ordered amLODIPine 5 mg oral tablet 5 mg, 1, tablet, By Mouth, Daily, # 30 tablet, Refills 3, Tot. Refills 3, Maintenance, 07/16/20 13:50:00 EST, Route to Pharmacy Electronically, [facility]/pharmacy #[id number], Partial fill upon patient request, 173, cm, 06/08/20 10:54:00 EDT, Height, 97, kg, 0... Start Date: 07/16/20 Status: Ordered Blood Pressure Monitor Blood Pressure Monitor, See Instructions, # 1 each, Refills 0, Tot. Refills 0, Maintenance, Blood Pressure Monitor Check blood pressure once a day at least one hour after taking medications [id number] PO TID Dx: I15.9 Duration: Lifetime, 11/11... Start Date: 11/11/20 Status: Ordered Colace sodium 100 mg oral capsule 100 mg, 1, capsule, By Mouth, 2 times a day, PRN, # 180 capsule, Refills 0, Tot. Refills 0, Maintenance, for constipation, 07/16/20 15:56:00 EST, Route to Pharmacy Electronically, [facility]/pharmacy #[id number],Partial fill upon patient request, 173, cm, ... Start Date: 07/16/20 Status: Ordered dicyclomine 10 mg oral capsule 1 capsule = 10 mg, By Mouth, 4 times a day, # 56 capsule, 1 Refills, Maintenance, 11/03/20 13:15:00EST, Capsule, [facility]/pharmacy #[id number], Partial fill upon patient request, 173, cm, 11/03/20 12:57:00 EST, Height, 97, kg, 03/29/20 18:07:00 EDT, Dry Weight Start Date: 11/03/20 Stop Date: 12/01/20 Status: Ordered famotidine 20 mg oral tablet 20 mg, 1, tablet, By Mouth, 2 times a day, # 28 tablet, Refills 0, Tot. Refills 0, Maintenance, 09/10/21 7:39:00 EST, Route to Pharmacy Electronically, [facility]/pharmacy #[id number], Partial fill upon patient [...] 1 Refills, Maintenance, 11/05/20 17:59:00 EST, Tablet, [facility]/pharmacy #[id number], Partial fill upon patient [...] Exam Date Time Procedure Performing Provider Status 09/10/21 4:13 AM Chest 2 Views Frontal and Lat Emma Phipps; Auth (Verified) Notes: (Chest 2 Views Frontal and Lat) Reason For Exam: Angina RESULT: Chest 2 Views Frontal and Lat Chest 2 Views Frontal and Lat HX OF PRESENT ILLNESS: Patient c o sudden onset of 10 10 squeezing chest pain rad to throat, while playing video games, denies drug use , does endorse drinking a monster drink at noon and 7pm, pain now 5 10, + sob; Reason: Angina; Clinical Question(s): CHF / CHF COMPARISON: 08/19/2018 FINDINGS: LINES AND TUBES: None. LUNGS AND PLEURA: Clear lungs. Normal pulmonary vascularity. No pleural effusion. No pneumothorax. HEART, MEDIASTINUM AND TENA: Heart is normal in size. Normal mediastinal and hilar contour. BONES AND SOFT TISSUES: No acute abnormality. IMPRESSION: No evidence of acute abnormality. WSN: [id number] Ordering Physician: Sherri Cool Dictated By: Jeff Pratt MD Dictated Date/Time: 09/10/21 7:31 am Reviewed By: Jeff Pratt MD Signed By: Jeff Pratt MD Signed Date/Time: 09/10/21 7:31 am Transcribed By: MELINDA Transcribed Date/Time: 09/10/21 7:30 am Vital Signs Most recent to oldest [Reference Range]: 1 2 3 Oxygen Saturation [94-100 %] 100 % (09/10/21 8:25 AM) 100 % (09/10/21 3:13 AM) 100 % (09/10/21 3:04 AM) Pulse Rate [55-90 bpm] 73 bpm (09/10/21 8:25 AM) 73 bpm (09/10/21 3:13 AM) 73 bpm (09/10/21 3:04 AM) Blood Pressure [90-138/55-84 mm Hg] 150/90mm Hg *H* (09/10/21 8:25 AM) 139/83mm Hg *H* (09/10/21 3:13 AM) 139/83mm Hg *H* (09/10/21 3:04 AM) Respiratory Rate [16-30 br/min] 16 br/min (09/10/21 8:25 AM) 17 br/min (09/10/21 3:13 AM) 17 br/min (09/10/21 3:04 AM) Temperature [96.8-100.4 DegF] 98.1 DegF (09/10/21 3:13 AM) 98.1 DegF (09/10/21 3:04 AM) Mode of Delivery (Oxygen) Room air (09/10/21 8:25 AM) Room air (09/10/21 3:13 AM) Room air (09/10/21 3:04 AM) Temperature Route Oral (09/10/21 3:13 AM) Oral (09/10/21 3:04 AM) Social History Social History Type Response Smoking Status Former smoker, quit more than 30 days ago entered on: 09/21/18 Sex
--- OUTSIDE RECORDS SUMMARY | 2024-06-05 13:27 | XMS_ITS | Continuity of Care Document ---
Author Organization [facility] Address [address] [place] [address]- Care Team Providers Care Hot Press Operator Name Role Phone Eber KAHN, Zuri Primary Care Physician [facility]counter [facility] Date(s): 08/03/22 - 09/02/22 [facility] [address] [place] [address] Allergies, Adverse Reactions, Alerts No [...] 09/10/21 7:39:00 EST, Route to Pharmacy Electronically, [facility]/pharmacy #[id number], Partial fill upon patient request if the prescription is for a schedule II opio... Start Date: 09/10/21 Stop Date: 09/24/21 Status: Ordered nortriptyline 10 mg oral capsule 10 mg, 1, capsule, By Mouth, Daily at bedtime, # 30 capsule, Refills 1, Tot. Refills 1, Maintenance, 07/04/22 15:54:00 EST, Route to Pharmacy Electronically, [facility]/pharmacy #[id number], Partial fill upon [...] Team Personnel Name: Zuri Velázquez MD Position: [facility] Resident Member Role: PCP Address: Address: [address] [place] [address] [place] [address]- Care Team Related Persons Name: NADER CHAVEZ Address: home [address] [place] [address] Name: DIONTE HARRELL Address: home [address] [place] [address] Name: KRISHNA PA Address: [address] [place] [address]
--- OUTSIDE RECORDS SUMMARY | 2024-06-05 13:27 | XMS_ITS | Continuity of Care Document ---
Author Organization [facility] Address [address] [place] [address]- Care Team Providers Care Dynamotor Repairer Name Role Phone Zuri Velázquez MD Primary Care Physician [phone] Encounter [facility] [place] Date(s): 06/12/23 - 07/12/23 [facility] [address] [place], [place] [address] Allergies, Adverse Reactions, Alerts No Known Allergies [...] Refills, Maintenance, 06/13/23 16:51:00 EDT, Tablet, [facility]/pharmacy #[id number], Partial fill upon patient request if the prescription is for a schedule II opioid drug., 173, cm, 10/... Start Date: 06/13/23 Status: Ordered nortriptyline 50 mg oral capsule 50 mg, 1, capsule, By Mouth, Daily at bedtime, dose increased, take daily for migraine prevention, # 90 capsule, Refills 1, Tot. Refills 1, Maintenance, 04/04/23 15:00:00 EDT, Route to Pharmacy Electronically, [facility]/pharmacy #[id number], Partial fill upon pat... Start Date: 04/04/23 Status: Ordered [place] 0.65% nasal spray 2 sprays, Nares, Both, 4 times a day, # 1 each, 5 Refills, Maintenance, 06/13/23 16:48:00 EDT, [facility]/pharmacy #[id number], Partial fill upon patient request if the prescription is for a schedule II opioid drug., 2 sprays Nares, Both 4 times a day, 173, cm, 10... Start Date: 06/13/23 Status: Ordered propranolol 60 mg oral capsule, extended release 60 mg, 1, capsule, By Mouth, Daily, # 30 capsule, Refills 5, Tot. Refills 5, Maintenance, 06/13/23 16:46:00 EDT, Route to Pharmacy Electronically, [facility]/pharmacy #[id number], Partial fill upon patient request if [...] Team Personnel Name: Zuri Velázquez MD Position: [facility] Resident Member Role: PCP Address: Address: [address] [place] [address] [place] [address]- Care Team Related Persons Name: NADER CHAVEZ Address: home [address] [place] [address] Name: DIONTE HARRELL Address: home [address] [place] [address] Name: KRISHNA PA Address: home [address] [place] [address]
--- OUTSIDE RECORDS SUMMARY | 2024-06-05 13:27 | XMS_ITS | Continuity of Care Document ---
Author Organization [facility] Address [address] [place] [address]- Care Team Providers Care Director Of Engineering Name Role Phone Sanjana KAHN, Natalee Rolon Primary Care Physic brian [facility] Date(s): 09/26/19 - 10/26/19 [facility] [address] [place] [address]- [facility] Attending Physician: Estelle Skaggs MD Admitting Physician: Estelle Skaggs MD Allergies, Adverse Reactions, Alerts Substance Reaction [...] 12:58:17 EDT, Aerosol, Route to Pharmacy Electronically, [id number], [id number] Start Date: 06/20/19 Stop Date: 06/27/19 Status: Ordered ceftriaxone 250 mg injectable powder for injection = 250 mg, Intramuscular, Once, Lot #: [id number] Exp: 09/2020, # 1 Doses, 0 Refills, [...]
--- OUTSIDE RECORDS SUMMARY | 2024-06-05 13:27 | XMS_ITS | Continuity of Care Document ---
Author Organization [facility] Address [address] [place] [address]- Care Team Providers Care Risk Management Internship Name Role Phone Zuri Velázquez MD Primary Care Physician [phone] Encounter [facility] [place] Date(s): 10/05/23 - 12/10/23 [facility] [address] [place], [place] [phone] Attending Physician: Not on Staff, Attending MD [...] Refills, Maintenance, 04/10/23 16:04:00 EDT, Cream, [id number], Partial fill upon patient request if the prescription is for a schedule II opioid drug., 1 application Topically 2 times a day,... Start Date: 04/10/23 Status: Ordered ipratropium nasal 21 mcg/inh spray See Instructions, PRN Nasal Congestion, 1 spray each nostril BID, # 1 each, 4 Refills, Maintenance,06/06/23 13:45:00 EDT, [facility]/pharmacy #[id number], Partial fill upon patient request if the prescription isfor a schedule II opioid drug., 1 spray each nostri... Start Date: 06/06/23 Status: Ordered meloxicam 7.5 mg oral tablet 1 tablet = 7.5 mg, By Mouth, Daily, prn pain, take with food, # 30 tablet, 1 Refills, Maintenance, 06/13/23 16:51:00 EDT, Tablet, [facility]/pharmacy #[id number], Partial fill upon patient request if the prescription is for a schedule II opioid drug., 173, cm, 10/... Start Date: 06/13/23 Status: Ordered [place] 0.65% nasal spray 2 sprays, Nares, Both, 4 times a day, # 1 each, 5 Refills, Maintenance, 06/13/23 16:48:00 EDT, [facility]/pharmacy #[id number], Partial fill upon [...] 06/13/23 16:46:00 EDT, [facility] Pharmacy Electronically, [facility] [...] 15:49:00 EST, Aerosol, Route to Pharmacy Electronically, [id number], [facility]/pharmacy #[id number], 173, cm, 07/21/23 14:13:00 [...] HOSPITAL Resident Member Role: PCP Address: Address: [address] [place] [address]- Care Team Related Persons Name: NADER CHAVEZ Address: home [address] [place] [address] Name: DIONTE HARRELL Address: home [address] [place] [address] Name: KRISHNA PA Address: home [address] [place] [address]
--- OUTSIDE RECORDS SUMMARY | 2024-06-05 13:27 | XMS_ITS | Continuity of Care Document ---
Author Organization [facility] Address [address] [place] [address]- Care Team Providers Care Test Tube Maker Name Role Phone Yehuda Bernal MD Primary Care Physician [place] [facility] [place](s): 04/30/24 - 05/30/24 [facility] [address] [place], [place] [phone] Allergies, Adverse Reactions, Alerts No Known Allergies [...] 05/20/24 17:05:00 EDT, Route to Pharmacy Electronically, [facility]/pharmacy #[id number], Partial fill upon patient request if the [...] 5 Refills, Maintenance, 04/10/23 16:04:00 EDT, Cream, [facility]/pharmacy #[id number], Partial fill upon patient request if the prescription is for a schedule II opioid drug., 1 application Topically 2 times a day,... Start Date: 04/10/23 Status: Ordered cetirizine 10 mg oral tablet 1 tablet = 10 mg, By Mouth, Daily, # 30 tablet, 0 Refills, Maintenance, 05/01/24 16:43:00 EDT, Tablet, [facility]/pharmacy #[id number], Partial fill upon patient request if the prescription is for a schedule II opioid drug., 173, cm, 05/01/24 16:22:00 EDT, Height Start Date: 05/01/24 Status: Ordered Flonase Allergy Relief 50 mcg/inh nasal spray 1 sprays = 50 mcg, Nares, Both, Daily, shake well before using, # 9.9 mL, 0 Refills, Maintenance, 05/01/24 16:43:00 EDT, [place], [facility]/pharmacy #[id number], Partial fill [...] tablet, 0 Refills, Maintenance, 05/20/24 17:04:00 EDT, [facility]/pharmacy #[id number], Partial [...] cm, ... Start Date: 06/13/23 Status: Ordered [place] 0.65% nasal spray 2 sprays, Nares, Both, [...] 2 Refills, Maintenance, 05/01/24 16:40:00 EDT, Tablet, [facility]/pharmacy #[id number], Partial fill upon patient request if the prescription is for a schedule II opioid drug., 173, cm, 05/01/24 16:22:00 EDT, Height Start Date: 05/01/24 Stop Date: 01/26/25 Status: Ordered Symbicort 80mcg/4.5mcg Inhaler 2, puffs, Inhalation, 2 times a day, # 10.2 Gm, Refills 2, Tot. Refills 2, Maintenance, 07/21/23 15:49:00 EST, Aerosol, Route to Pharmacy Electronically, [id number], [facility]/pharmacy #[id number], 173, cm, [...] Team Personnel Name: Yehuda Bernal MD Position: S Resident Member Role: PCP Address: Address: [address] [place] [address] [place] [address]- [place] Care Team Related Persons Name: NADER CHAVEZ Address: [address] [place] [address] Name: DIONTE HARRELL Address: [address] [place] [address] Name: KRISHNA PA Address: [address] [place] [address]
--- OUTSIDE RECORDS SUMMARY | 2024-06-05 13:27 | XMS_ITS | Continuity of Care Document ---
Author Organization [facility] Address [address] [place] [address]- Care Team Providers Care Traveling Buyer Name Role Phone Sanjana KAHN, Natalee Rolon Primary Care Physic brian Encounter [facility] [place] Date(s): 12/31/21 - 01/30/22 [facility] [address] [place] [address]- Allergies, Adverse Reactions, Alerts No Known Allergies [...] 12:58:17 EDT, Aerosol, Route to Pharmacy Electronically, [id number], [facility]/pharmacy #[id number] Start Date: 06/20/19 Stop Date: 06/27/19 Status: Ordered amLODIPine 5 mg oral tablet 5 mg, 1, tablet, By Mouth, Daily, # 30 tablet, Refills 3, Tot. Refills 3, Maintenance, 07/16/20 13:50:00 EST, Route to Pharmacy Electronically, [facility]/pharmacy #[id number], Partial fill upon patient request, 173, cm, 06/08/20 10:54:00 EDT, Height, 97, kg, ... Start Date: 07/16/20 Status: Ordered Blood Pressure Monitor Blood Pressure Monitor, See Instructions, # 1 each, Refills 0, Tot. Refills 0, Maintenance, Blood Pressure Monitor Check blood pressure once a day at least one hour after taking medications [id number] PO TID Dx: I15.9 Duration: Lifetime, 11/11... Start Date: 11/11/20 Status: Ordered Colace sodium 100 mg oral capsule 100 mg, 1, capsule, By Mouth, 2 times a day, PRN, # 180 capsule, Refills 0, Tot. Refills 0, Maintenance, for constipation, 07/16/20 15:56:00 EST, Route to Pharmacy Electronically, [facility]/pharmacy #[id number],Partial fill upon patient request, 173, cm, ... Start Date: 07/16/20 Status: Ordered dicyclomine 10 mg oral capsule 1 capsule = 10 mg, By Mouth, 4 times a day, # 56 capsule, 1 Refills, Maintenance, 11/03/20 13:15:00EST, Capsule, [facility]/pharmacy #[id number], Partial fill upon patient request, 173, cm, 11/03/20 12:57:00 EST, Height, 97, kg, 03/29/20 18:07:00 EDT, Dry Weight Start Date: 11/03/20 Stop Date: 12/01/20 Status: Ordered famotidine 20 mg oral tablet 20 mg, 1, tablet, By Mouth, 2 times a day, # 28 tablet, Refills 0, Tot. Refills 0, Maintenance, 09/10/21 7:39:00 EST, Route to Pharmacy Electronically, [facility]/pharmacy #[id number], Partial fill upon patient request if the prescription is for a schedule II opio... Start Date: 09/10/21 Stop Date: 09/24/21 Status: Ordered MiraLax oral powder for reconstitution = 17 Gm, By Mouth, Daily, dissolve in water before taking, # 1,530 Gm, 0 Refills, Maintenance, 07/16/20 13:50:00 EST, REC Powder, [facility]/pharmacy #[id number], Partial fill upon patient request, 17 Gm By MouthDaily,Instr:dissolve in water before taking, 173, c... Start Date: 07/16/20 Status: Ordered ondansetron 4 mg oral tablet, disintegrating 1 tablet = 4 mg, By Mouth, Every 8 hours, PRN as needed for nausea/vomiting, # 9 tablet, 0 Refills,Maintenance, 11/03/20 13:15:00 EST, DIS Tablet, [facility]/pharmacy #[id number], 173, cm, 11/03/20 12:57:00 EST,Height, 97, kg, 03/29/20 18:07:00 EDT, Dry Weight Start Date: 11/03/20 Stop Date: 11/06/20 Status: Ordered verapamil 40 mg oral tablet 1 tablet = 40 mg, By Mouth, 3 times a day, # 90 tablet, 1 Refills, Maintenance, 11/05/20 17:59:00 EST, Tablet, [facility]/pharmacy #[id number], Partial fill upon patient request [...]
--- OUTSIDE RECORDS SUMMARY | 2024-06-05 13:27 | XMS_ITS | Continuity of Care Document ---
Author Organization [facility] Address [address] [place] [address]- Care Team Providers Care Ambulance Officer Name Role Phone Sanjana KAHN, Natalee Rolon Primary Care Physic brian Encounter [facility] [place] Date(s): 04/29/20 - 05/29/20 [facility] [address] [place] [address]- [facility] Attending Physician: Vanessa Fontaine Admitting Physician: AdmtrVanessa [...] 12:58:17 EDT, Aerosol, Route to Pharmacy Electronically, [id number], [id number] Start Date: 06/20/19 Stop Date: 06/27/19 Status: Ordered amitriptyline 10 mg oral tablet 10 mg, 1, tablet, By Mouth, Daily at bedtime, # 30 tablet, Refills 0, Tot. Refills 0, Maintenance, 05/18/20 19:51:00 EDT, Route to Pharmacy Electronically, [facility]/pharmacy #[id number], 173, cm, 04/29/20 16:50:00 EDT, Height, 97, kg, 03/29/20 18:07:00 EDT, Dry... Start Date: 05/18/20 Status: Ordered famotidine 20 mg oral tablet 20 mg, 1, tablet, By Mouth, Daily, # 90 tablet, Refills 11, Tot. Refills 11, Maintenance, 05/18/20 19:50:00 EDT, Route to Pharmacy Electronically, [facility]/pharmacy #[id number], 173, cm, 04/29/20 16:50:00 EDT, Height, 97, kg, 03/29/20 18:07:00 EDT, Dry Weight Start Date: 05/18/20 Stop Date: 05/03/23 Status: Ordered Problem List Condition Effective Dates Status Health Status Inform ant Abdominal pain(Confirmed) Active Acne(Confirmed) Active Asthma(Confirmed) Active Intermittent Explosive Disorder(Confirmed) 1 Active Irritable bowel(Confirmed) Active Hepatic cyst, right lobe(Confirmed) 2 01/27/14 [facility] 2Measures 2.4 x 1.9 x 1.7 cm and contains peripheral calcification along its posterior medial aspect Social History Social History Type Response Smoking Status Former smoker, quit more than 30 days ago entered on: 09/21/18 Sex
--- OUTSIDE RECORDS SUMMARY | 2024-06-05 13:27 | XMS_ITS | Continuity of Care Document ---
Author Organization [facility] Address [address] [place] [address]- Care Team Providers Care Glass Loading Equipment Tender Name Role Phone Sanjana KAHN, Natalee Rolon Primary Care Physic brian Encounter [facility] [place] [place] Date(s): 05/28/20 - 06/27/20 [facility] [address] [place] [address]- [facility] Allergies, Adverse Reactions, Alerts Substance Reaction Severity [...] 12:58:17 EDT, Aerosol, Route to Pharmacy Electronically, [id number], [id number] Start Date: 06/20/19 Stop Date: 06/27/19 Status: Ordered amitriptyline 10 mg oral tablet 10 mg, 1, tablet, By Mouth, Daily at bedtime, # 30 tablet, Refills 0, Tot. Refills 0, Maintenance, 05/18/20 19:51:00 EDT, Route to Pharmacy Electronically, [facility]/pharmacy #[id number], 173, cm, 04/29/20 16:50:00 EDT, Height, 97, kg, 03/29/20 18:07:00 EDT, Dry... Start Date: 05/18/20 Status: Ordered famotidine 20 mg oral tablet 20 mg, 1, tablet, By Mouth, Daily, # 90 tablet, Refills 11, Tot. Refills 11, Maintenance, 05/18/20 19:50:00 EDT, Route to Pharmacy Electronically, [facility]/pharmacy #[id number], 173, cm, 04/29/20 16:50:00 EDT, Height, 97, kg, 03/29/20 18:07:00 EDT, Dry Weight Start Date: 05/18/20 Stop Date: 05/03/23 Status: Ordered Problem List Condition Effective Dates Status Health Status Inform ant Abdominal pain(Confirmed) Active Acne(Confirmed) Active Asthma(Confirmed) Active Intermittent Explosive Disorder(Confirmed) 1 Active Irritable bowel(Confirmed) Active Hepatic cyst, right lobe(Confirmed) 2 01/27/14 [facility] 2Measures 2.4 x 1.9 x 1.7 cm and contains peripheral calcification along its posterior medial aspect Social History Social History Type Response Smoking Status Former smoker, quit more than 30 days ago entered on: 09/21/18 Sex
--- OUTSIDE RECORDS SUMMARY | 2024-06-05 13:27 | XMS_ITS | Continuity of Care Document ---
Author Organization [facility] Address [address] [place] [address]- Care Team Providers Care Manager Of Exhibitions And Collections Name Role Phone Zuri Velázquez MD Primary Care Physician Encounter [facility] [place] Date(s): 01/30/23 - 03/01/23 [facility] [address] [place], [place] [address] Allergies, Adverse Reactions, Alerts No [...] 02/23/23 10:04:00 EDT, Route to Pharmacy Electronically, [facility]/pharmacy #[id number], Partial fill upon pat... Start Date: 02/23/23 [...] 13:08:00... Start Date: 01/04/23 Status: Ordered SUMAtriptan 50 mg oral tablet 1 tablet = 50 mg, By Mouth, Daily, PRN for migraine headache, may repeat dose after 2 hours up to amaximum of 2. Use for max of 2 migraine events, # 9 tablet, 0 Refills, Acute 03/02/23 17:00:00 EDT,02/23/23 10:02:00 EDT, Tablet, [id number],... Start Date: 02/23/23 Stop Date: 03/02/23 Status: Ordered Problem List Condition Confirmation Course [...] CENTER Resident Member Role: PCP Address: Address: [address] [place] [address] [place] [address]- Care Team Related Persons Name: NADER CHAVEZ Address: home [address] [place] [address] Name: DIONTE HARRELL Address: home [address] [place] [address] Name: KRISHNA PA Address: home [address] [place] [address]
--- OUTSIDE RECORDS SUMMARY | 2024-06-05 13:27 | XMS_ITS | Continuity of Care Document ---
Author Organization [facility] Address [address] [place] [address]- Care Team Providers Care Raw Stock Machine Loader Name Role Phone Sanjana KAHN, Natalee Rolon Primary Care Physic brian Encounter [facility] Date(s): 09/28/20 - 11/01/20 [facility] [address] [place] [address]- Attending Physician: Randy Zuñiga MD Admitting Physician: [...] 12:58:17 EDT, Aerosol, Route to Pharmacy Electronically, [id number], [facility]/pharmacy #[id number] Start Date: 06/20/19 [...] capsule, 0 Refills, Maintenance, 07/16/20 13:50:00EST, Capsule, [facility]/pharmacy #[id number], Partial fill [...] Refills, Maintenance, 07/16/20 13:50:00 EST, REC Powder, [facility]/pharmacy #[id number], Partial fill upon patient request, 17 Gm By MouthDaily,Instr:dissolve in water before taking, 173, c... Start Date: 07/16/20 Status: Ordered Problem List Condition Effective Dates Status Health Status Inform ant Abdominal pain(Confirmed) Active Acne(Confirmed) Active Asthma(Confirmed) Active Intermittent Explosive Disorder(Confirmed) 1 Active Irritable bowel(Confirmed) Active Hepatic cyst, right lobe(Confirmed) 2 01/27/14 [facility] 2Measures 2.4 x 1.9 x 1.7 cm and contains peripheral calcification along its posterior medial aspect Social History Social History Type Response Smoking Status Former smoker, quit more than 30 days ago entered on: 09/21/18 Sex
--- OUTSIDE RECORDS SUMMARY | 2024-06-05 13:27 | XMS_ITS | Continuity of Care Document ---
Author Organization [facility] Address [address] [place] [address]- Care Team Providers Care Ripsaw Operator Name Role Phone Sanjana KAHN, Natalee Rolon Primary Care Physic brian Encounter [facility] Date(s): 11/02/20 - 12/02/20 [facility] [address] [place] [address]- Allergies, Adverse Reactions, Alerts Substance Reaction Severity [...] 12:58:17 EDT, Aerosol, Route to Pharmacy Electronically, [id number], [id number] Start Date: 06/20/19 Stop Date: 06/27/19 Status: Ordered amLODIPine 5 mg oral tablet 5 mg, 1, tablet, By Mouth, Daily, # 30 tablet, Refills 3, Tot. Refills 3, Maintenance, 07/16/20 13:50:00 EST, Route to Pharmacy Electronically, [facility]/pharmacy #[id number], Partial fill upon patient request, 173, cm, 06/08/20 10:54:00 EDT, Height, 97, kg, 080... Start Date: 07/16/20 Status: Ordered Blood Pressure Monitor Blood Pressure Monitor, See Instructions, # 1 each, Refills 0, Tot. Refills 0, Maintenance, Blood Pressure Monitor Check blood pressure once a day at least one hour after taking medications [id number] PO TID Dx: I15.9 Duration: Lifetime, 11/11... Start Date: 11/11/20 Status: Ordered Colace sodium 100 mg oral capsule 100 mg, 1, capsule, By Mouth, 2 times a day, PRN, # 180 capsule, Refills 0, Tot. Refills 0, Maintenance, for constipation, 07/16/20 15:56:00 EST, Route to Pharmacy Electronically, [facility]/pharmacy #[id number],Partial fill upon patient request, 173, cm, ... Start Date: 07/16/20 Status: Ordered dicyclomine 10 mg oral capsule 1 capsule = 10 mg, By Mouth, 4 times a day, # 56 capsule, 1 Refills, Maintenance, 11/03/20 13:15:00EST, Capsule, [facility]/pharmacy #[id number], Partial fill upon patient request, 173, cm, 11/03/20 12:57:00 EST, Height, 97, kg, 03/29/20 18:07:00 EDT, Dry Weight Start Date: 11/03/20 Stop Date: 12/01/20 Status: Ordered famotidine 20 mg oral tablet 20 mg, 1, tablet, By Mouth, Daily, # 90 tablet, Refills 11, Tot. Refills 11, Maintenance, 10/28/20 14:31:00 EST, Route to Pharmacy Electronically, [facility]/pharmacy #[id number], 173, cm, 10/28/20 13:50:00 EST, Height, 97, kg, 03/29/20 18:07:00 EDT, Dry Weight Start Date: 10/28/20 Stop Date: 10/13/23 Status: Ordered MiraLax oral powder for reconstitution = 17 Gm, By Mouth, Daily, dissolve in water before taking, # 1,530 Gm, 0 Refills, Maintenance, 07/16/20 13:50:00 EST, REC Powder, [facility]/pharmacy #[id number], Partial fill upon patient request, 17 Gm By MouthDaily,Instr:dissolve in water before taking, 173, c... Start Date: 07/16/20 Status: Ordered ondansetron 4 mg oral tablet, disintegrating 1 tablet = 4 mg, By Mouth, Every 8 hours, PRN as needed for nausea/vomiting, # 9 tablet, 0 Refills,Maintenance, 11/03/20 13:15:00 EST, DIS Tablet, [facility]/pharmacy #[id number], 173, cm, 11/03/20 12:57:00 EST,Height, 97, kg, 03/29/20 18:07:00 EDT, Dry Weight Start Date: 11/03/20 Stop Date: 11/06/20 Status: Ordered verapamil 40 mg oral tablet 1 tablet = 40 mg, By Mouth, 3 times a day, # 90 tablet, 1 Refills, Maintenance, 11/05/20 17:59:00 EST, Tablet, [facility]/pharmacy #[id number], Partial fill upon patient request if the prescription is for a schedule II opioid drug., 173, cm, 11/05/20 17:02:00 EST,... Start Date: 11/05/20 Status: Ordered Problem List Condition Effective Dates Status Health Status Inform ant Abdominal pain(Confirmed) Active Acne(Confirmed) Active Asthma(Confirmed) Active Intermittent Explosive Disorder(Confirmed) 1 Active Irritable bowel(Confirmed) Active Hepatic cyst, right lobe(Confirmed) 2 01/27/14 [facility] 2Measures 2.4 x 1.9 x 1.7 cm and contains peripheral calcification along its posterior medial aspect Social History Social History Type Response Smoking Status Former smoker, quit more than 30 days ago entered on: 09/21/18 Sex
--- OUTSIDE RECORDS SUMMARY | 2024-06-05 13:27 | XMS_ITS | Continuity of Care Document ---
Author Organization [facility] Address [address] [place] [address]- Care Team Providers Care Merchandising Stock Associate Name Role Phone Zuri Velázquez MD Primary Care Physician [phone] Encounter [facility] [place] Date(s): 08/01/23 - 08/31/23 [facility] [address] [place], [place] [address] Allergies, Adverse Reactions, Alerts No [...] 1 Refills, Maintenance, 06/13/23 16:51:00 EDT, Tablet, [facility]/pharmacy #[id number], Partial fill upon patient request if the prescription is for a schedule II opioid drug., 173, cm, 10/... Start Date: 06/13/23 Status: Ordered nortriptyline 50 mg oral capsule 50 mg, 1, capsule, By Mouth, Daily at bedtime, dose increased, take daily for migraine prevention, # 90 capsule, Refills 1, Tot. Refills 1, Maintenance, 04/04/23 15:00:00 EDT, Route to Pharmacy Electronically, [facility]/pharmacy #[id number], Partial fill upon pat... Start Date: 04/04/23 Status: Ordered [place] 0.65% nasal spray 2 sprays, Nares, Both, 4 times a day, # 1 each, 5 Refills, Maintenance, 06/13/23 16:48:00 EDT, [facility]/pharmacy #[id number], Partial fill upon patient request [...] 06/13/23 16:46:00 EDT, Route to Pharmacy Electronically, [facility]/pharmacy #[id number], Partial fill upon patient request [...] 15:49:00 EST, Aerosol, Route to Pharmacy Electronically, [id number], [facility]/pharmacy #[id number], 173, cm, 07/21/23 14:13:00 EST, [...] Team Personnel Name: Zuri Velázquez MD Position: [facility] Resident Member Role: PCP Address: Address: [address] [place] [address]- Care Team Related Persons Name: NADER CHAVEZ Address: [address] [place] [address] Name: DIONTE HARRELL Address: [address] [place] [address] Name: KRISHNA AP Address: home [address] [place] [address]
--- OUTSIDE RECORDS SUMMARY | 2024-06-05 13:27 | XMS_ITS | Continuity of Care Document ---
Author Organization [facility] Address [address] [place] [address]- Care Team Providers Care Inspector Handbag Frames Name Role Phone Sanjana KAHN, Natalee Rolon Primary Care Physic brian Encounter [facility] Date(s): 09/08/20 - 10/08/20 [facility] [address] [place] [address]- Allergies, Adverse Reactions, Alerts Substance Reaction Severity [...] 12:58:17 EDT, Aerosol, Route to Pharmacy Electronically, [id number], [id number] Start Date: 06/20/19 Stop Date: 06/27/19 Status: Ordered amLODIPine 5 mg oral tablet 5 mg, 1, tablet, By Mouth, Daily, # 30 tablet, Refills 3, Tot. Refills 3, Maintenance, 07/16/20 13:50:00 EST, Route to Pharmacy Electronically, [facility]/pharmacy #[id number], Partial fill upon patient request, 173, cm, 06/08/20 10:54:00 EDT, Height, 97, kg, 080... Start Date: 07/16/20 Status: Ordered Colace sodium 100 mg oral capsule 100 mg, 1, capsule, By Mouth, 2 times a day, PRN, # 180 capsule, Refills 0, Tot. Refills 0, Maintenance, for constipation, 07/16/20 15:56:00 EST, Route to Pharmacy Electronically, [facility]/pharmacy #[id number],Partial fill upon patient request, 173, cm, ... Start Date: 07/16/20 Status: Ordered dicyclomine 10 mg oral capsule 1 capsule = 10 mg, By Mouth, 4 times a day, # 56 capsule, 0 Refills, Maintenance, 07/16/20 13:50:00EST, Capsule, [facility]/pharmacy #[id number], Partial fill upon patient request, 173, cm, 06/08/20 10:54:00 EDT, Height, 97, kg, 03/29/20 18:07:00 EDT, Dry Weight Start Date: 07/16/20 Stop Date: 07/30/20 Status: Ordered famotidine 20 mg oral tablet 20 mg, 1, tablet, By Mouth, Daily, # 90 tablet, Refills 11, Tot. Refills 11, Maintenance, 05/18/20 19:50:00 EDT, Route to Pharmacy Electronically, [facility]/pharmacy #[id number], 173, cm, 04/29/20 16:50:00 [...] Hepatic cyst, right lobe(Confirmed) 2 01/27/[address] [place] [address] Center 2Measures 2.4 x 1.9 x 1.7 cm and contains peripheral calcification along its posterior medial aspect Social History Social History Type Response Smoking Status Former smoker, quit more than 30 days ago entered on: 09/21/18 Sex
--- OUTSIDE RECORDS SUMMARY | 2024-06-05 13:27 | XMS_ITS | Continuity of Care Document ---
Author Organization [facility] Address [address] [place] [address]- Care Team Providers Care Group Insurance Specialist Name Role Phone Sanjana KAHN, Natalee Rolon Primary Care Physic brian Encounter [facility] [place] Date(s): 01/03/22 - 02/10/22 [facility] [address] [place] [address]- Attending Physician: Not on Staff, Attending MD [...] 12:58:17 EDT, Aerosol, Route to Pharmacy Electronically, [id number], [id number] Start Date: 06/20/19 Stop Date: [...] at least one hour after taking medications [id number] PO TID Dx: I15.9 Duration: Lifetime, 11/11... Start Date: 11/11/20 Status: Ordered Colace sodium 100 mg oral capsule 100 mg, 1, capsule, By Mouth, 2 times a day, PRN, # 180 capsule, Refills 0, Tot. Refills 0, Maintenance, for constipation, 07/16/20 15:56:00 EST, Route to Pharmacy Electronically, [facility]/pharmacy #[id number],Partial fill upon patient request, 173, cm, ... Start Date: 07/16/20 Status: Ordered dicyclomine 10 mg oral capsule 1 capsule = 10 mg, By Mouth, 4 times a day, # 56 capsule, 1 Refills, Maintenance, 11/03/20 13:15:00EST, Capsule, [facility]/pharmacy #[id number], Partial fill upon patient request, 173, cm, 11/03/20 12:57:00 EST, Height, 97, kg, 03/29/20 18:07:00 EDT, Dry Weight Start Date: 11/03/20 Stop Date: 12/01/20 Status: Ordered famotidine 20 mg oral tablet 20 mg, 1, tablet, By Mouth, 2 times a day, # 28 tablet, Refills 0, Tot. Refills 0, Maintenance, 09/10/21 7:39:00 EST, Route to Pharmacy Electronically, [facility]/pharmacy #[id number], Partial fill upon patient request if the prescription is for a schedule II opio... Start Date: 09/10/21 Stop Date: 09/24/21 Status: Ordered MiraLax oral powder for reconstitution = 17 Gm, By Mouth, Daily, dissolve in water before taking, # 1,530 Gm, 0 Refills, Maintenance, 07/16/20 13:50:00 EST, REC Powder, [facility]/pharmacy #[id number], Partial fill upon patient request, 17 Gm By MouthDaily,Instr:dissolve in water before taking, 173, c... Start Date: 07/16/20 Status: Ordered ondansetron 4 mg oral tablet, disintegrating 1 tablet = 4 mg, By Mouth, Every 8 hours, PRN as needed for nausea/vomiting, # 9 tablet, 0 Refills,Maintenance, 11/03/20 13:15:00 EST, DIS Tablet, [facility]/pharmacy #[id number], 173, cm, 11/03/20 12:57:00 EST,Height, 97, kg, 03/29/20 18:07:00 EDT, Dry Weight Start Date: 11/03/20 Stop Date: 11/06/20 Status: Ordered verapamil 40 mg oral tablet 1 tablet = 40 mg, By Mouth, 3 times a day, # 90 tablet, 1 Refills, Maintenance, 11/05/20 17:59:00 EST, Tablet, [facility]/pharmacy #[id number], Partial fill upon patient request if [...]
--- OUTSIDE RECORDS SUMMARY | 2024-06-05 13:28 | XMS_ITS | Continuity of Care Document ---
Author Organization [facility] Address [address] [place] [address]- Care Team Providers Care Auto Mechanic Name Role Phone Eber KAHN, Zuri Primary Care Physician Encounter [facility] Date(s): 07/06/22 - 08/05/[address] [address]- Allergies, Adverse Reactions, Alerts No Known Allergies [...] 09/10/21 7:39:00 EST, Route to Pharmacy Electronically, [facility]/pharmacy #[id number], Partial fill upon patient request if the prescription is for a schedule II opio... Start Date: 09/10/21 Stop Date: 09/24/21 Status: Ordered nortriptyline 10 mg oral capsule 10 mg, 1, capsule, By Mouth, Daily at bedtime, # 30 capsule, Refills 1, Tot. Refills 1, Maintenance, 07/04/22 15:54:00 EST, Route to Pharmacy Electronically, [facility]/pharmacy #[id number], Partial fill upon patient [...] Personnel Name: Zuri Velázquez MD Position: [facility] Resident Member Role: PCP Address: Address: [address] [place] [address] [place] [address]- Care Team Related Persons Name: NADER CHAVEZ Address: home [address] [place] [address] Name: DIONTE HARRELL Address: [address] [place] [address] Name: KRISHNA PA Address: [address] [place] [address]
--- OUTSIDE RECORDS SUMMARY | 2024-06-05 13:28 | XMS_ITS | Continuity of Care Document ---
Author Organization [facility] Address [address] [place] [address]- Care Team Providers Care Sprinkler Installer Name Role Phone Zuri Velázquez MD Primary Care Physician Encounter [facility] Date(s): 08/17/23 - 12/15/23 [facility] [address] [place], [place] [phone] Attending Physician: Not on Staff, Attending MD [...] Refills, Maintenance, 04/10/23 16:04:00 EDT, Cream, [id number], Partial fill upon patient request if the prescription is for a schedule II opioid drug., 1 application Topically 2 times a day,... Start Date: 04/10/23 Status: Ordered ipratropium nasal 21 mcg/inh spray See Instructions, PRN Nasal Congestion, 1 spray each nostril BID, # 1 each, 4 Refills, Maintenance,06/06/23 13:45:00 EDT, [facility]/pharmacy #[id number], Partial fill upon patient request if the prescription isfor a schedule II opioid drug., 1 spray each nostri... Start Date: 06/06/23 Status: Ordered meloxicam 7.5 mg oral tablet 1 tablet = 7.5 mg, By Mouth, Daily, prn pain, take with food, # 30 tablet, 1 Refills, Maintenance, 06/13/23 16:51:00 EDT, Tablet, [facility]/pharmacy #[id number], Partial fill upon patient request if the prescription is for a schedule II opioid drug., 173, cm, 10/... Start Date: 06/13/23 Status: Ordered [place]ahan 0.65% nasal spray 2 sprays, Nares, Both, 4 times a day, # 1 each, 5 Refills, Maintenance, 06/13/23 16:48:00 EDT, [facility]/pharmacy #[id number], Partial fill upon patient [...] 06/13/23 16:46:00 EDT, Route to Pharmacy Electronically, [facility]/pharmacy #[id number], Partial fill upon patient [...] 15:49:00 EST, Aerosol, Route to Pharmacy Electronically, [id number], [facility]/pharmacy #[id number], 173, cm, 07/21/23 14:13:00 EST, Height [...] HOSPITAL Resident Member Role: PCP Address: Address: [address] [place] [address]- Care Team Related Persons Name: NADER CHAVEZ Address: home [address] [place] [address] Name: DIONTE HARRELL Address: home [address] [place] [address] Name: KRISHNA PA Address: home [address] [place] [address]
--- OUTSIDE RECORDS SUMMARY | 2024-06-05 13:28 | XMS_ITS | Continuity of Care Document ---
Author Organization [facility] Address [address] [place] [address]- Care Team Providers Care Computer Hardware Engineer Name Role Phone Zuri Velázquez MD Primary Care Physician [phone] Encounter [facility] Date(s): 08/09/23 - 09/08/23 [facility] [address] [place], [place] [address] Allergies, Adverse Reactions, Alerts No Known [...] Refills, Maintenance, 06/13/23 16:51:00 EDT, Tablet, [facility]/pharmacy #[id number], Partial fill upon [...] 15:00:00 EDT, Route to Pharmacy Electronically, [facility]/pharmacy #[id number], Partial fill upon pat... Start Date: 04/04/23 Status: Ordered [place] 0.65% nasal spray 2 sprays, Nares, Both, 4 times a day, # 1 each, 5 Refills, Maintenance, 06/13/23 16:48:00 EDT, [facility]/pharmacy #[id number], Partial fill upon [...] 16:46:00 EDT, Route to Pharmacy Electronically, [facility]/pharmacy #[id number], Partial fill upon [...] 15:49:00 EST, Aerosol, Route to Pharmacy Electronically, [id number], [facility]/pharmacy #[id number], 173, cm, 07/21/23 [...] Name: Zuri Velázquez MD Position: [facility] Resident Member Role: PCP Address: Address: [address] [place] [address]- Care Team Related Persons Name: NADER CHAVEZ Address: home [address] [place] [address] Name: DIONTE HARRELL Address: home [address] [place] [address] Name: KRISHNA PA Address: home [address] [place] [address]
--- OUTSIDE RECORDS SUMMARY | 2024-06-05 13:28 | XMS_ITS | Continuity of Care Document ---
Author Organization [facility] Address [address] [place] [address]- Care Team Providers Care Combination Welder Apprentice Name Role Phone Yehuda Bernal MD Primary Care Physician [phone] [facility] [place](s[place] 04/24/24 - 05/24/24 [facility] [address] [place], [place] [phone] Allergies, Adverse Reactions, Alerts No Known Allergies [...] 05/20/24 17:05:00 EDT, Route to Pharmacy Electronically, [facility]/pharmacy #[id number], Partial fill upon patient request if the [...] 0 Refills, Maintenance, 05/01/24 16:43:00 EDT, Tablet, [facility]/pharmacy #[id number], Partial fill upon patient request if the prescription is for a schedule II opioid drug., 173, cm, 05/01/24 16:22:00 EDT, Height Start Date: 05/01/24 Status: Ordered Flonase Allergy Relief 50 mcg/inh nasal spray 1 sprays = 50 mcg, Nares, Both, Daily, shake well before using, # 9.9 mL, 0 Refills, Maintenance, 05/01/24 16:43:00 EDT, [place], [facility]/pharmacy #[id number], Partial fill upon patient request if [...] tablet, 0 Refills, Maintenance, 05/20/24 17:04:00 EDT, [facility]/pharmacy #[id number], Partial fill upon patient request if the prescription is for a schedule II opioid drug., 173, cm, 05/20/24 16:... Start Date: 05/20/24 Status: Ordered meloxicam 7.5 mg oral tablet 1 tablet = 7.5 mg, By Mouth, Daily, prn pain, take with food, # 30 tablet, 1 Refills, Maintenance, 06/13/23 16:51:00 EDT, Tablet, [facility]/pharmacy #[id number], Partial fill upon patient request if the prescription is for a schedule II opioid drug., 173, cm, ... Start Date: 06/13/23 Status: Ordered [place] 0.65% nasal spray 2 sprays, Nares, Both, 4 times a day, # 1 each, 5 Refills, Maintenance, 06/13/23 16:48:00 EDT, [facility]/pharmacy #[id number], Partial fill upon patient request if [...] EDT, Route to Pharmacy Electronically, [facility]/pharmacy #[id number], Partial fill upon patient request if [...] 2 Refills, Maintenance, 05/01/24 16:40:00 EDT, Tablet, [facility]/pharmacy #[id number], Partial fill upon patient request if the prescription is for a schedule II opioid drug., 173, cm, 05/01/24 16:22:00 EDT, Height Start Date: 05/01/24 Stop Date: 01/26/25 Status: Ordered Symbicort 80mcg/4.5mcg Inhaler 2, puffs, Inhalation, 2 times a day, # 10.2 Gm, Refills 2, Tot. Refills 2, Maintenance, 07/21/23 15:49:00 EST, Aerosol, Route to Pharmacy Electronically, [id number], [facility]/pharmacy #[id number], 173, cm, 07/21/23 14:13:00 EST, Height [...] Resident Member Role: PCP Address: Address: [address] [place] [address] [place] [address]- Care Team Related Persons Name: CHAVEZNADER Address: home [address] [place] [address] Name: DIONTE HARRELL Address: home [address] [place] [address] Name: KRISHNA PA Address: [address] [place] [address]
--- OUTSIDE RECORDS SUMMARY | 2024-06-05 13:28 | XMS_ITS | Continuity of Care Document ---
Author Organization [facility] Address [address] [place] [address]- Care Team Providers Care Shale Planer Operator Helper Name Role Phone Zuri Velázquez MD Primary Care Physician [phone] Encounter [facility] Date(s): 04/03/23 - 05/03/23 [facility] [address] [place], [place] [address] Allergies, Adverse Reactions, Alerts No [...] 5 Refills, Maintenance, 04/10/23 16:04:00 EDT, Cream, [facility]/pharmacy #[id number], Partial fill upon [...] Team Personnel Name: Zuri Velázquez MD Position: [facility] Resident Member Role: PCP Address: Address: [address] [place] [address] [place] [address]- Care Team Related Persons Name: NADER CHAVEZ Address: home [address] [place] [address] Name: DIONTE HARRELL Address: home [address] [place] [address] Name: KRISHNA PA Address: [address] [place] [address]
--- OUTSIDE RECORDS SUMMARY | 2024-06-05 13:28 | XMS_ITS | Continuity of Care Document ---
Author Organization [facility] Address [address] [place] [address]- Care Team Providers Care Welfare Centre Manager Name Role Phone Sanjana KAHN, Natalee Rolon Primary Care Physic brian Encounter [facility] Date(s): 09/26/19 - 11/15/19 [facility] [address] [place] [address] [facility] Attending Physician: Not on Staff, Attending MD Admitting Physician: Zaar KAHN, Randy Luong Allergies, Adverse Reactions, Alerts Substance Reaction Severity [...] 12:58:17 EDT, Aerosol, Route to Pharmacy Electronically, [id number], [facility]/pharmacy #[id number] Start Date: 06/20/19 Stop Date: 06/27/19 Status: Ordered ceftriaxone 250 mg injectable powder for injection = 250 mg, Intramuscular, Once, Lot #: [id number] Exp: 09/2020, # 1 Doses, 0 Refills, [...]
--- OUTSIDE RECORDS SUMMARY | 2024-06-05 13:28 | XMS_ITS | Continuity of Care Document ---
Author Organization [facility] Address [address] [place] [address]- Care Team Providers Care Swine Nutritionist Name Role Phone Sanjana KAHN, Natalee Rolon Primary Care Physic brian [place] [facility] [place] 02/26/20 - 03/27/20 [facility] [address] [place] [address]- [facility] Attending Physician: Not on Staff, Attending MD [...] 12:58:17 EDT, Aerosol, Route to Pharmacy Electronically, [id number], [facility]/pharmacy #[id number] Start Date: 06/20/19 Stop Date: 06/27/19 Status: Ordered ceftriaxone 250 mg injectable powder for injection = 250 mg, Intramuscular, Once, Lot #: [id number] Exp: 09/2020, # 1 Doses, 0 Refills, [...] 2 01/27/[address] [facility] 2Measures 2.4 x 1.9 x 1.7 cm and contains peripheral calcification along its posterior medial aspect Social History Social History Type Response Smoking Status Former smoker, quit more than 30 days ago entered on: 09/21/18 Sex
--- OUTSIDE RECORDS SUMMARY | 2024-06-05 13:28 | XMS_ITS | Continuity of Care Document ---
Author Organization [facility] Address [address] [place] [address]- Care Team Providers Care Biologist Aide Name Role Phone Sanjana KAHN, Natalee Rolon Primary Care Physic brian Encounter [facility] Date(s): 11/01/19 - 11/11/19 [facility] [address] [place] [address]- [facility] Attending Physician: Vanessa Fontaine Admitting Physician: AdmVanessa mathur Referring Physician: AdmtrVansesa Allergies, Adverse Reactions, Alerts Substance Reaction Severity [...] 12:58:17 EDT, Aerosol, Route to Pharmacy Electronically, [id number], [facility]/pharmacy #[id number] Start Date: 06/20/19 Stop Date: 06/27/19 Status: Ordered ceftriaxone 250 mg injectable powder for injection = 250 mg, Intramuscular, Once, Lot #: [id number] Exp: 09/2020, # 1 Doses, 0 Refills, [...]
--- OUTSIDE RECORDS SUMMARY | 2024-06-05 13:28 | XMS_ITS | Continuity of Care Document ---
Author Organization [facility] Address [address] [place] [address]- Care Team Providers Care Yard Hostler Name Role Phone Sanjana KAHN, Natalee Rolon Primary Care Physic brian [place] [facility] Date(s): 04/09/20 - 05/09/20 [facility] [address] [place] [address]- [facility] Allergies, Adverse Reactions, Alerts Substance [...] 12:58:17 EDT, Aerosol, Route to Pharmacy Electronically, [id number], [facility]/pharmacy #[id number] Start Date: 06/20/19 Stop Date: 06/27/19 Status: Ordered ceftriaxone 250 mg injectable powder for injection = 250 mg, Intramuscular, Once, Lot #: [id number] Exp: 09/2020, # 1 Doses, 0 Refills, Soft Stop, 03/04/19 11:49:13 EDT Start Date: 03/04/19 Status: Ordered famotidine 20 mg oral tablet 20 mg, 1, tablet, By Mouth, Daily, # 90 tablet, Refills 11, Tot. Refills 11, Maintenance, 05/08/20 13:39:00 EDT, Route to Pharmacy Electronically, [facility]/pharmacy [...] Refills, Maintenance, 05/07/20 14:25:00 EDT, REC Powder, [facility]/pharmacy #[id number], 17 Gm By Mouth Daily,PRN:Constipation,Instr:dissolve in water before taking, 173, cm,... Start Date: 05/07/20 Status: Ordered ondansetron 4 mg oral tablet, disintegrating 1 tablet = 4 mg, By Mouth, Every 8 hours, PRN as needed for nausea/vomiting, # 9 tablet, 0 Refills,Maintenance, 03/29/20 21:46:00 EDT, DIS Tablet, [facility]/pharmacy #[id number], 173, cm, 03/29/20 18:07:00 EDT,Height, 97, kg, 03/29/20 18:07:00 EDT, Dry Weight Start Date: 03/29/20 Stop Date: 04/01/20 Status: Ordered Problem List Condition Effective Dates Status Health Status Inform ant Abdominal pain(Confirmed) Active Acne(Confirmed) Active Asthma(Confirmed) Active Intermittent Explosive Disorder(Confirmed) 1 Active Irritable bowel(Confirmed) Active Hepatic cyst, right lobe(Confirmed) 2 01/27/[address] [place] [address] Center 2Measures 2.4 x 1.9 x 1.7 cm and contains peripheral calcification along its posterior medial aspect Social History Social History Type Response Smoking Status Former smoker, quit more than 30 days ago entered on: 09/21/18 Sex
--- OUTSIDE RECORDS SUMMARY | 2024-06-05 13:28 | XMS_ITS | Continuity of Care Document ---
Author Organization [facility] Address [address] [place] [address]- Care Team Providers Care Water Safety Teacher Name Role Phone Sanjana KAHN, Natalee Rolon Primary Care Physic brian En[place] [facility] Date(s): 05/21/21 - 06/25/21 [facility] [address] [place] [address]- Attending Physician: Not on Staff, Attending MD [...] 12:58:17 EDT, Aerosol, Route to Pharmacy Electronically, [id number], [facility]/pharmacy #[id number] Start Date: 06/20/19 Stop Date: 06/27/19 Status: Ordered amLODIPine 5 mg oral tablet 5 mg, 1, tablet, By Mouth, Daily, # 30 tablet, Refills 3, Tot. Refills 3, Maintenance, 07/16/20 13:50:00 EST, Route to Pharmacy Electronically, [facility]/pharmacy #[id number], Partial fill upon patient request, 173, cm, 06/08/20 10:54:00 EDT, Height, 97, kg, 0... Start Date: 07/16/20 Status: Ordered Blood Pressure Monitor Blood Pressure Monitor, See Instructions, # 1 each, Refills 0, Tot. Refills 0, Maintenance, Blood Pressure Monitor Check blood pressure once a day at least one hour after taking medications [id number] PO TID Dx: I15.9 Duration: Lifetime, 11/11... Start Date: 11/11/20 Status: Ordered Colace sodium 100 mg oral capsule 100 mg, 1, capsule, By Mouth, 2 times a day, PRN, # 180 capsule, Refills 0, Tot. Refills 0, Maintenance, for constipation, 07/16/20 15:56:00 EST, Route to Pharmacy Electronically, [facility]/pharmacy #[id number],Partial fill upon patient request, 173, cm, ... Start Date: 07/16/20 Status: Ordered dicyclomine 10 mg oral capsule 1 capsule = 10 mg, By Mouth, 4 times a day, # 56 capsule, 1 Refills, Maintenance, 11/03/20 13:15:00EST, Capsule, [facility]/pharmacy #[id number], Partial fill upon patient request, 173, cm, 11/03/20 12:57:00 EST, Height, 97, kg, 03/29/20 18:07:00 EDT, Dry Weight Start Date: 11/03/20 Stop Date: 12/01/20 Status: Ordered famotidine 20 mg oral tablet 20 mg, 1, tablet, By Mouth, Daily, # 90 tablet, Refills 11, Tot. Refills 11, Maintenance, 10/28/20 14:31:00 EST, Route to Pharmacy Electronically, [facility]/pharmacy #[id number], 173, cm, 10/28/20 13:50:00 EST, Height, 97, kg, 03/29/20 18:07:00 EDT, Dry Weight Start Date: 10/28/20 Stop Date: 10/13/23 Status: Ordered MiraLax oral powder for reconstitution = 17 Gm, By Mouth, Daily, dissolve in water before taking, # 1,530 Gm, 0 Refills, Maintenance, 07/16/20 13:50:00 EST, REC Powder, [facility]/pharmacy #[id number], Partial fill upon patient request, 17 Gm By MouthDaily,Instr:dissolve in water before taking, 173, c... Start Date: 07/16/20 Status: Ordered ondansetron 4 mg oral tablet, disintegrating 1 tablet = 4 mg, By Mouth, Every 8 hours, PRN as needed for nausea/vomiting, # 9 tablet, 0 Refills,Maintenance, 11/03/20 13:15:00 EST, DIS Tablet, [facility]/pharmacy #[id number], 173, cm, 11/03/20 12:57:00 EST,Height, 97, kg, 03/29/20 18:07:00 EDT, Dry Weight Start Date: 11/03/20 Stop Date: 11/06/20 Status: Ordered verapamil 40 mg oral tablet 1 tablet = 40 mg, By Mouth, 3 times a day, # 90 tablet, 1 Refills, Maintenance, 11/05/20 17:59:00 EST, Tablet, [facility]/pharmacy #[id number], Partial fill upon patient request if the prescription is for a schedule II opioid drug., 173, cm, 11/05/20 17:02:00 EST,... Start Date: 11/05/20 Status: Ordered Problem List Condition Effective Dates Status Health Status Inform ant Abdominal pain(Confirmed) Active Acne(Confirmed) Active Asthma(Confirmed) Active Intermittent Explosive Disorder(Confirmed) 1 Active Irritable bowel(Confirmed) Active Hepatic cyst, right lobe(Confirmed) 2 01/27/14 [facility] 2Measures 2.4 x 1.9 x 1.7 cm and contains peripheral calcification along its posterior medial aspect Social History Social History Type Response Smoking Status Former smoker, quit more than 30 days ago entered on: 09/21/18 Sex
--- OUTSIDE RECORDS SUMMARY | 2024-06-05 13:28 | XMS_ITS | Continuity of Care Document ---
Author Organization [facility] Address [address] [place] [address]- Care Team Providers Care Sql Server Consultant Name Role Phone Zuri Velázquez MD Primary Care Physician [place] [facility] [place] Date(s): 11/01/22 - 12/07/[address] [address] Attending Physician: Kanu WONG, Celina Choi [...] 10/17/22 9:48:00 EST, Route to Pharmacy Electronically, [facility]/pharmacy #[id number], Partial fill upon patientrequest if the prescription [...] 1 Refills, Maintenance, 10/17/22 9:33:00 EST, Solution, [facility]/pharmacy #[id number], Partial fill upon [...] Resident Member Role: PCP Address: Address: [address] [place] [address] [place] [address]- [place] Care Team Related Persons Name: SCOTT NADER Address: home [address] [place] [address] Name: DIONTE HARRELL Address: home [address] [place] [address] Name: KRISHNA PA Address: [address] [place] [address]
--- OUTSIDE RECORDS SUMMARY | 2024-06-05 13:28 | XMS_ITS | Continuity of Care Document ---
Author Organization [facility] Address [address] [place] [address]- Care Team Providers Care Night Time Babysitter Name Role Phone Zuri Velázquez MD Primary Care Physician En[place] [facility] [place] Date(s): 02/10/23 - 04/16/23 [facility] [address] [place], [place] [address] Attending Physician: Not [...] Date: 04/04/23 Stop Date: 04/18/23 Status: Ordered capsaicin 0.025% topical cream 1 application, Topically, 2 times a day, # 45 Gm, 5 Refills, Maintenance, 04/10/23 16:04:00 EDT, [facility], [id number], Partial fill upon patient request if the [...] 04/04/23 15:03:00 EDT, Route to Pharmacy Electronically, [facility]/pharmacy #[id number], Partial fill upon patient request if t... Start Date: 04/04/23 Stop Date: 04/26/23 Status: Ordered nortriptyline 50 mg oral capsule 50 mg, 1, capsule, By Mouth, Daily at bedtime, dose increased, take daily for migraine prevention, # 90 capsule, Refills 1, Tot. Refills 1, Maintenance, 04/04/23 15:00:00 EDT, Route to Pharmacy Electronically, [facility]/pharmacy #[id number], Partial fill upon pat... Start [...] S Resident Member Role: PCP Address: Address: [address] [place] [address] [place] [address]- Care Team Related Persons Name: NADER CHAVEZ Address: [address] [place] [address] Name: DIONTE HARRELL Address: home [address] [place] [address] Name: KRISHNA PA Address: [address] [place] [address]
--- OUTSIDE RECORDS SUMMARY | 2024-06-05 13:28 | XMS_ITS | Continuity of Care Document ---
Author Organization [facility] Address [address] [place] [address]- Care Team Providers Care Regional Business Development Manager Name Role Phone Zuri Velázquez MD Primary Care Physician [phone] Encounter [facility] [place] Date(s): 05/16/23 - 06/15/23 [facility] [address] [place], [place] [address] Allergies, Adverse Reactions, Alerts No Known Allergies [...] [id number], Partial fill upon pat... Start Date: 04/04/23 Status: Ordered [place] 0.65% nasal spray 2 sprays, Nares, Both, [...] HOSPITAL Resident Member Role: PCP Address: Address: [address] [place] [address] [place] [address]- Care Team Related Persons Name: NADER CHAVEZ Address: [address] [place] [address] Name: DIONTE HARRELL Address: home [address] [place] [address] Name: KRISHNA PA Address: [address] [place] [address]
--- OUTSIDE RECORDS SUMMARY | 2024-06-05 13:28 | XMS_ITS | Continuity of Care Document ---
Author Organization [facility] Address [address] [place] [address]- Care Team Providers Care Plasterer Helper Name Role Phone Sanjana KAHN, Natlaee Rolon Primary Care Physic brian [place] [facility] [place] 04/07/20 - 05/09/20 [facility] [address] [place] [address]- [facility] Attending Physician: Randy Zuñiga MD Admitting Physician: [...] 12:58:17 EDT, Aerosol, Route to Pharmacy Electronically, [id number], [facility]/pharmacy #[id number] Start Date: 06/20/19 Stop Date: 06/27/19 Status: Ordered ceftriaxone 250 mg injectable powder for injection = 250 mg, Intramuscular, Once, Lot #: [id number] Exp: 09/2020, # 1 Doses, 0 Refills, Soft Stop, 03/04/19 11:49:13 EDT Start Date: 03/04/19 Status: Ordered famotidine 20 mg oral tablet 20 mg, 1, tablet, By Mouth, Daily, # 90 tablet, Refills 11, Tot. Refills 11, Maintenance, 05/08/20 13:39:00 EDT, Route to Pharmacy Electronically, [facility]/pharmacy #[id number], 173, cm, 04/29/20 16:50:00 EDT, Height, [...] Refills, Maintenance, 05/07/20 14:25:00 EDT, REC Powder, [facility]/pharmacy #[id number], 17 Gm By Mouth Daily,PRN:Constipation,Instr:dissolve in water before taking, 173, cm,... Start Date: 05/07/20 Status: Ordered ondansetron 4 mg oral tablet, disintegrating 1 tablet = 4 mg, By Mouth, Every 8 hours, PRN as needed for nausea/vomiting, # 9 tablet, 0 Refills,Maintenance, 03/29/20 21:46:00 EDT, DIS Tablet, [facility]/pharmacy #[id number], 173, cm, 03/29/20 18:07:00 EDT,Height, 97, kg, 03/29/20 18:07:00 EDT, Dry Weight Start Date: 03/29/20 Stop Date: 04/01/20 Status: Ordered Problem List Condition Effective Dates Status Health Status Inform ant Abdominal pain(Confirmed) Active Acne(Confirmed) Active Asthma(Confirmed) Active Intermittent Explosive Disorder(Confirmed) 1 Active Irritable bowel(Confirmed) Active Hepatic cyst, right lobe(Confirmed) 2 6[facility]2/14 [facility] 2Measures 2.4 x 1.9 x 1.7 cm and contains peripheral calcification along its posterior medial aspect Social History Social History Type Response Smoking Status Former smoker, quit more than 30 days ago entered on: 09/21/18 Sex
--- OUTSIDE RECORDS SUMMARY | 2024-06-05 13:28 | XMS_ITS | Continuity of Care Document ---
Author Organization [facility] Address [address] [place] [address]- Care Team Providers Care Corrosion Technician Name Role Phone Sanjana KAHN, Natalee Rolon Primary Care Physic brian Encounter [facility] Date(s): 04/17/20 - 05/17/20 [facility] [address] [place] [address]- [facility] Allergies, Adverse Reactions, Alerts Substance [...] 12:58:17 EDT, Aerosol, Route to Pharmacy Electronically, [id number], [facility]/pharmacy #[id number] Start Date: 06/20/19 Stop Date: 06/27/19 Status: Ordered ceftriaxone 250 mg injectable powder for injection = 250 mg, Intramuscular, Once, Lot #: [id number] Exp: 09/2020, # 1 Doses, 0 Refills, Soft Stop, 03/04/19 11:49:13 EDT Start Date: 03/04/19 Status: Ordered famotidine 20 mg oral tablet 20 mg, 1, tablet, By Mouth, Daily, # 90 tablet, Refills 11, Tot. Refills 11, Maintenance, 05/08/20 13:39:00 EDT, Route to Pharmacy Electronically, [facility]/pharmacy #[id number], 173, cm, 04/29/20 16:50:00 EDT, Height, [...] Refills, Maintenance, 05/07/20 14:25:00 EDT, REC Powder, [facility]/pharmacy #[id number], 17 Gm By Mouth Daily,PRN:Constipation,Instr:dissolve in water before taking, 173, cm,... Start Date: 05/07/20 Status: Ordered ondansetron 4 mg oral tablet, disintegrating 1 tablet = 4 mg, By Mouth, Every 8 hours, PRN as needed for nausea/vomiting, # 9 tablet, 0 Refills,Maintenance, 03/29/20 21:46:00 EDT, DIS Tablet, [facility]/pharmacy #[id number], 173, cm, 03/29/20 18:07:00 EDT,Height, 97, kg, 03/29/20 18:07:00 EDT, Dry Weight Start Date: 03/29/20 Stop Date: 04/01/20 Status: Ordered Problem List Condition Effective Dates Status Health Status Inform ant Abdominal pain(Confirmed) Active Acne(Confirmed) Active Asthma(Confirmed) Active Intermittent Explosive Disorder(Confirmed) 1 Active Irritable bowel(Confirmed) Active Hepatic cyst, right lobe(Confirmed) 2 01/27/[address] [place] [address] Center 2Measures 2.4 x 1.9 x 1.7 cm and contains peripheral calcification along its posterior medial aspect Social History Social History Type Response Smoking Status Former smoker, quit more than 30 days ago entered on: 09/21/18 Sex
--- OUTSIDE RECORDS SUMMARY | 2024-06-05 13:28 | XMS_ITS | Continuity of Care Document ---
Author Organization [facility]3] Adult Medicine Address [address] [place] [address]- Care Team Providers Care Car Wiper Name Role Phone Zuri Velázquez MD Primary Care Physician [phone] Encounter [facility] Date(s): 09/01/23 - 10/01/23 [facility]3] Adult Medicine [address] [place], [place] [address] Allergies, Adverse Reactions, Alerts [...] days, # 20 tablet, 0 Refills, Acute 10/03/23 12:18:00 EST, 09/23/23 12:18:00 EST, Tablet, [facility]/pharmacy #[id number], Partial fill upon patient request if the prescription is for a schedule II opioid drug., 1 tablet B... Start Date: 09/23/23 Stop Date: 10/03/23 Status: Ordered Blood Pressure Monitor See Instructions, # 1 each, Maintenance, Measure blood pressure daily and keep log. Dx: Hypertension ICD I10, 09/23/23 12:20:00 EST, Supply, 173, cm, 09/22/23 15:18:00 EST, Height Start Date: 09/23/23 Status: Ordered capsaicin 0.025% topical cream 1 application, Topically, 2 times a day, # 45 Gm, 5 Refills, Maintenance, 04/10/23 16:04:00 EDT, Cream, [facility]/pharmacy #[id number], Partial fill upon patient [...] 15:00:00 EDT, Route to Pharmacy Electronically, [facility]/pharmacy #[id number], Partial fill upon pat... Start Date: 04/04/23 Status: Ordered [place] 0.65% nasal spray 2 sprays, Nares, Both, [...] 15:49:00 EST, Aerosol, Route to Pharmacy Electronically, [id number], [facility]/pharmacy #[id number], 173, cm, 07/21/23 14:13:00 EST, Height Start Date: 07/21/23 Status: Ordered Problem List Condition Confirmation Course Effective Dates Status [facility] atus Informant Abdominal pain Confirmed Active [...] S Resident Member Role: PCP Address: Address: [address] [place] [address] [place] [address]- [place] Care Team Related Persons Name: NADER CHAVEZ Address: home [address] [place] [address] Name: DIONTE HARRELL Address: home [address] [place] [address] Name: KRISHNA PA Address: home [address] [place] [address]
--- OUTSIDE RECORDS SUMMARY | 2024-06-05 13:28 | XMS_ITS | Continuity of Care Document ---
Author Organization [facility] Adult [facility] Address [address] [place] [address]- Care Team Providers Care Automatic Operator Name Role Phone Zuri Velázquez MD Primary Care Physician [phone] Encounter [facility] Date(s): 09/05/23 - 12/06/23 [facility] Adult Medicine [address] [place], [place] [phone] Attending Physician: Not on Staff, Attending MD [...] Refills, Maintenance, 04/10/23 16:04:00 EDT, Cream, [id number], Partial fill upon patient request if the prescription is for a schedule II opioid drug., 1 application Topically 2 times a day,... Start Date: 04/10/23 Status: Ordered ipratropium nasal 21 mcg/inh spray See Instructions, PRN Nasal Congestion, 1 spray each nostril BID, # 1 each, 4 Refills, Maintenance,10/10/23 13:45:00 EDT, [facility]/pharmacy #[id number], Partial fill upon patient request if the prescription isfor a schedule II opioid drug., 1 spray each nostri... Start Date: 06/06/23 Status: Ordered meloxicam 7.5 mg oral tablet 1 tablet = 7.5 mg, By Mouth, Daily, prn pain, take with food, # 30 tablet, 1 Refills, Maintenance, 06/13/23 16:51:00 EDT, Tablet, [facility]/pharmacy #[id number], Partial fill upon patient request if the prescription is for a schedule II opioid drug., 173, cm, 10... Start Date: 06/13/23 Status: Ordered [place] 0.65% nasal spray 2 sprays, Nares, Both, 4 times a day, # 1 each, 5 Refills, Maintenance, 06/13/23 16:48:00 EDT, [facility]/pharmacy #[id number], [...] EDT, Route to Pharmacy Electronically, [facility] [...] 15:49:00 EST, Aerosol, Route to Pharmacy Electronically, [id number], [facility]/pharmacy #[id number], 173, cm, 07/21/23 [...] BAPTIST Resident Member Role: PCP Address: Address: [address] [place] [address] [place] [address]- Care Team Related Persons Name: NADER CHAVEZ Address: home [address] [place] [address] Name: DIONTE HARRELL Address: home [address] [place] [address] Name: KRISHNA PA Address: home [address] [place] [address]
--- OUTSIDE RECORDS SUMMARY | 2024-06-05 13:28 | XMS_ITS | Continuity of Care Document ---
Author Organization [facility] Adult [facility] Address [address] [place] [address]- Care Team Providers Care Shipyard Painting Supervisor Name Role Phone Sanjana KAHN, Natalee Rolon Primary Care Physic brian [place] [facility] Date(s): 03/30/20 - 05/01/20 [facility] Adult [facility] [address] [place] [address]- [facility] Attending Physician: Not on Staff, Attending MD [...] 12:58:17 EDT, Aerosol, Route to Pharmacy Electronically, [id number], [facility]/pharmacy #[id number] Start Date: 06/20/19 Stop Date: 06/27/19 Status: Ordered ceftriaxone 250 mg injectable powder for injection = 250 mg, Intramuscular, Once, Lot #: [id number] Exp: 09/2020, # 1 Doses, 0 Refills, Soft Stop, 03/04/19 11:49:13 EDT Start Date: 03/04/19 Status: Ordered docusate sodium 100 mg oral capsule 100 mg, 1, capsule, By Mouth, 2 times a day, PRN, # 20 capsule, Refills 0, Tot. Refills 0, Maintenance, for constipation, 04/03/20 13:10:00 EDT, [id number], 173, cm, 03/29/20 18:07:00 EDT, Height, [...] Refills, Maintenance, 04/21/20 15:34:00 EDT, REC Powder, [facility]/pharmacy #[id number], 17 Gm By Mouth Daily,PRN:Constipation,Instr:dissolve in water before taking, 173, cm,... Start Date: 04/21/20 Status: Ordered ondansetron 4 mg oral tablet, disintegrating 1 tablet = 4 mg, By Mouth, Every 8 hours, PRN as needed for nausea/vomiting, # 9 tablet, 0 Refills,Maintenance, 03/29/20 21:46:00 EDT, DIS Tablet, [facility]/pharmacy #[id number], 173, cm, 03/29/20 18:07:00 EDT,Height, 97, kg, 03/29/20 18:07:00 EDT, Dry Weight Start Date: 03/29/20 Stop Date: 04/01/20 Status: Ordered Problem List Condition Effective Dates Status Health Status Inform ant Abdominal pain(Confirmed) Active Acne(Confirmed) Active Asthma(Confirmed) Active Intermittent Explosive Disorder(Confirmed) 1 Active Irritable bowel(Confirmed) Active Hepatic cyst, right lobe(Confirmed) 2 01/27/14 [facility] 2Measures 2.4 x 1.9 x 1.7 cm and contains peripheral calcification along its posterior medial aspect Social History Social History Type Response Smoking Status Former smoker, quit more than 30 days ago entered on: 09/21/18 Sex
--- OUTSIDE RECORDS SUMMARY | 2024-06-05 13:28 | XMS_ITS | Continuity of Care Document ---
Author Organization [facility] Address [address] [place] [address]- Care Team Providers Care Glassware Maker Demonstrator Name Role Phone Natalee Allan MD Primary Care Physic brian Encounter [facility] Date(s): 02/18/21 - 02/25/21 [facility] [address] [place] [address]- Attending Physician: Amber Morris MD Referring Physician: Natalee Allan MD Allergies, [...] 12:58:17 EDT, Aerosol, Route to Pharmacy Electronically, [id number], [facility]/pharmacy #[id number] Start Date: 06/20/19 Stop Date: 06/27/19 Status: Ordered amLODIPine 5 mg oral tablet 5 mg, 1, tablet, By Mouth, Daily, # 30 tablet, Refills 3, Tot. Refills 3, Maintenance, 07/16/20 13:50:00 EST, Route to Pharmacy Electronically, [facility]/pharmacy #[id number], Partial fill upon patient request, 173, cm, 06/08/20 10:54:00 EDT, Height, 97, kg, 0... Start Date: 07/16/20 Status: Ordered Blood Pressure Monitor Blood Pressure Monitor, See Instructions, # 1 each, Refills 0, Tot. Refills 0, Maintenance, Blood Pressure Monitor Check blood pressure once a day at least one hour after taking medications [id number] PO TID Dx: I15.9 Duration: Lifetime, 11/11... Start Date: 11/11/20 Status: Ordered Colace sodium 100 mg oral capsule 100 mg, 1, capsule, By Mouth, 2 times a day, PRN, # 180 capsule, Refills 0, Tot. Refills 0, Maintenance, for constipation, 07/16/20 15:56:00 EST, Route to Pharmacy Electronically, [facility]/pharmacy #[id number],Partial fill upon patient request, 173, cm, ... Start Date: 07/16/20 Status: Ordered dicyclomine 10 mg oral capsule 1 capsule = 10 mg, By Mouth, 4 times a day, # 56 capsule, 1 Refills, Maintenance, 11/03/20 13:15:00EST, Capsule, [facility]/pharmacy #[id number], Partial fill upon patient request, 173, cm, 11/03/20 12:57:00 EST, Height, 97, kg, 03/29/20 18:07:00 EDT, Dry Weight Start Date: 11/03/20 Stop Date: 12/01/20 Status: Ordered famotidine 20 mg oral tablet 20 mg, 1, tablet, By Mouth, Daily, # 90 tablet, Refills 11, Tot. Refills 11, Maintenance, 10/28/20 14:31:00 EST, Route to Pharmacy Electronically, [facility]/pharmacy #[id number], 173, cm, 10/28/20 13:50:00 EST, [...] 1 Refills, Maintenance, 11/05/20 17:59:00 EST, Tablet, [facility]/pharmacy #[id number], Partial fill upon patient request if the prescription is for a schedule II opioid drug., 173, cm, 11/05/20 17:02:00 EST,... Start Date: 11/05/20 Status: Ordered Problem List Condition Effective Dates Status Health Status Inform ant Abdominal pain(Confirmed) Active Acne(Confirmed) Active Asthma(Confirmed) Active Intermittent Explosive Disorder(Confirmed) 1 Active Irritable bowel(Confirmed) Active Hepatic cyst, right lobe(Confirmed) 2 01/27/14 Active [facility] 2Measures 2.4 x 1.9 x 1.7 cm and contains peripheral calcification along its posterior medial aspect Vital Signs Most recent to oldest [Reference Range]: 1 Height 173 cm (02/18/21 2:33 PM) Oxygen Saturation [94-100 %] 100 % (02/18/21 2:33 PM) Pulse Rate [55-90 bpm] 73 bpm (02/18/21 2:33 PM) Blood Pressure [90-138/55-84 mm Hg] 137/ 92mm Hg (02/18/21 2:33 PM) Temperature [96.8-100.4 DegF] 99.0 DegF (02/18/21 2:33 PM) Mode of Delivery (Oxygen) Room air (02/18/21 2:33 PM) Blood pressure sites Arm, right (02/18/21 2:33 PM) Temperature Route Temporal (02/18/21 2:33 PM) Weight Obtained Via Standing scale (02/18/21 2:33 PM) Dry Weight Obtained Via Standing scale (02/18/21 2:33 PM) Social History Social History Type Response Smoking Status Former smoker, quit more than 30 days ago entered on: 09/21/18 Sex
--- OUTSIDE RECORDS SUMMARY | 2024-06-05 13:28 | XMS_ITS | Continuity of Care Document ---
Author Organization [facility] Adult [facility] Address [address] [place] [address]- Care Team Providers Care Locker Room Clerk Name Role Phone Zuri Velázquez MD Primary Care Physician Encounter [facility] Date(s): 04/03/23 - 05/04/23 [facility] Adult [facility] [address] [place], [place] [address] Attending Physician: Not on Staff, Attending [...] 5 Refills, Maintenance, 04/10/23 16:04:00 EDT, Cream, [facility]/pharmacy #[id number], Partial fill [...] Name: Zuri Velázquez MD Position: [facility] Resident Member Role: PCP Address: Address: [address] [place] [address] [place] [address]- Care Team Related Persons Name: NADER CHAVEZ Address: [address] [place] [address] Name: DIONTE HARRELL Address: [address] [place] [address] Name: KRISHNA PA Address: [address] [place] [address]
--- OUTSIDE RECORDS SUMMARY | 2024-06-05 13:28 | XMS_ITS | Continuity of Care Document ---
Author Organization [facility] Address [address] [place] [address]- Care Team Providers Care Ballistics Teacher Name Role Phone Zuri Velázquez MD Primary Care Physician Encounter [facility] Date(s): 12/20/22 - 01/21/23 [facility] [address] [place], [place] [address] Attending Physician: Not on [...] 10/17/22 9:48:00 EST, Route to Pharmacy Electronically, [facility]/pharmacy #[id number], Partial fill upon patientrequest if the prescription [...] 2 Refills, Soft Stop, 12/12/22 15:40:00 EDT, [facility]/pharmacy #[id number], Partial fill upon patient request if the [...] Team Personnel Name: Zuri Velázquez MD Position: [facility] Resident Member Role: PCP Address: Address: [address] [place] [address] [place] [address]- Care Team Related Persons Name: NADER CHAVEZ Address: home [address] [place] [address] Name: DIONTE HARRELL Address: home [address] [place] [address] Name: KRISHNA PA Address: [address] [place] [address]
--- OUTSIDE RECORDS SUMMARY | 2024-06-05 13:28 | XMS_ITS | Continuity of Care Document ---
Author Organization [facility] Address [address] [place] [address]- Care Team Providers Care National Service Officer Name Role Phone Zuri Velázquez MD Primary Care Physician [place] [facility] [place](s[place] 04/10/23 - 05/10/23 [facility] [address] [place], [place] [address] Allergies, Adverse Reactions, Alerts No Known Allergies [...] 5 Refills, Maintenance, 04/10/23 16:04:00 EDT, Cream, [facility]/pharmacy #[id number], [...] [facility] Resident Member Role: PCP Address: Address: [address] [place] [address] [place] [address]- Care Team Related Persons Name: NADER CHAVEZ Address: [address] [place] [address] Name: DIONTE HARRELL Address: home [address] [place] [address] Name: KRISHNA PA Address: [address] [place] [address]
--- OUTSIDE RECORDS SUMMARY | 2024-06-05 13:28 | XMS_ITS | Continuity of Care Document ---
Author Organization [facility] Adult [facility] Address [address] [place] [address]- Care Team Providers Care Inhalation Therapy Aide Name Role Phone Sanjana KAHN, Natalee Rolon Primary Care Physic brian Encounter [facility] Date(s): 12/02/20 - 01/01/21 [facility] Adult [facility] [address] [place] [id number] Allergies, Adverse Reactions, Alerts Substance Reaction Severity [...] 12:58:17 EDT, Aerosol, Route to Pharmacy Electronically, [id number], [id number] Start Date: 06/20/19 Stop Date: 06/27/19 Status: Ordered amLODIPine 5 mg oral tablet 5 mg, 1, tablet, By Mouth, Daily, # 30 tablet, Refills 3, Tot. Refills 3, Maintenance, 07/16/20 13:50:00 EST, Route to Pharmacy Electronically, [facility]/pharmacy #[id number], Partial fill upon patient request, 173, cm, 06/08/20 10:54:00 EDT, Height, 97, kg, 080... Start Date: 07/16/20 Status: Ordered Blood Pressure Monitor Blood Pressure Monitor, See Instructions, # 1 each, Refills 0, Tot. Refills 0, Maintenance, Blood Pressure Monitor Check blood pressure once a day at least one hour after taking medications [id number] PO TID Dx: I15.9 Duration: Lifetime, 11/11... Start Date: 11/11/20 Status: Ordered Colace sodium 100 mg oral capsule 100 mg, 1, capsule, By Mouth, 2 times a day, PRN, # 180 capsule, Refills 0, Tot. Refills 0, Maintenance, for constipation, 07/16/20 15:56:00 EST, Route to Pharmacy Electronically, [facility]/pharmacy #[id number],Partial fill upon patient request, 173, cm, ... Start Date: 07/16/20 Status: Ordered dicyclomine 10 mg oral capsule 1 capsule = 10 mg, By Mouth, 4 times a day, # 56 capsule, 1 Refills, Maintenance, 11/03/20 13:15:00EST, Capsule, [facility]/pharmacy #[id number], Partial fill upon patient request, 173, cm, 11/03/20 12:57:00 EST, Height, 97, kg, 03/29/20 18:07:00 EDT, Dry Weight Start Date: 11/03/20 Stop Date: 12/01/20 Status: Ordered famotidine 20 mg oral tablet 20 mg, 1, tablet, By Mouth, Daily, # 90 tablet, Refills 11, Tot. Refills 11, Maintenance, 10/28/20 14:31:00 EST, Route to Pharmacy Electronically, [facility]/pharmacy #[id number], 173, cm, 10/28/20 13:50:00 EST, Height, 97, kg, 03/29/20 18:07:00 EDT, Dry Weight Start Date: 10/28/20 Stop Date: 10/13/23 Status: Ordered MiraLax oral powder for reconstitution = 17 Gm, By Mouth, Daily, dissolve in water before taking, # 1,530 Gm, 0 Refills, Maintenance, 07/16/20 13:50:00 EST, REC Powder, [facility]/pharmacy #[id number], Partial fill upon patient request, 17 Gm By MouthDaily,Instr:dissolve in water before taking, 173, c... Start Date: 07/16/20 Status: Ordered ondansetron 4 mg oral tablet, disintegrating 1 tablet = 4 mg, By Mouth, Every 8 hours, PRN as needed for nausea/vomiting, # 9 tablet, 0 Refills,Maintenance, 11/03/20 13:15:00 EST, DIS Tablet, [facility]/pharmacy #[id number], 173, cm, 11/03/20 12:57:00 EST,Height, 97, kg, 03/29/20 18:07:00 EDT, Dry Weight Start Date: 11/03/20 Stop Date: 11/06/20 Status: Ordered verapamil 40 mg oral tablet 1 tablet = 40 mg, By Mouth, 3 times a day, # 90 tablet, 1 Refills, Maintenance, 11/05/20 17:59:00 EST, Tablet, [facility]/pharmacy #[id number], Partial fill upon patient request if the prescription is for a schedule II opioid drug., 173, cm, 11/05/20 17:02:00 EST,... Start Date: 11/05/20 Status: Ordered Problem List Condition Effective Dates Status Health Status Inform ant Abdominal pain(Confirmed) Active Acne(Confirmed) Active Asthma(Confirmed) Active Intermittent Explosive Disorder(Confirmed) 1 Active Irritable bowel(Confirmed) Active Hepatic cyst, right lobe(Confirmed) 2 01/27/14 [facility] 2Measures 2.4 x 1.9 x 1.7 cm and contains peripheral calcification along its posterior medial aspect Social History Social History Type Response Smoking Status Former smoker, quit more than 30 days ago entered on: 09/21/18 Sex
--- OUTSIDE RECORDS SUMMARY | 2024-06-05 13:28 | XMS_ITS | Continuity of Care Document ---
Author Organization [facility] Address [address] [place] [address]- Care Team Providers Care Bingo Attendant Name Role Phone Sanjana KAHN, Natalee Rolon Primary Care Physic brian Encounter [facility] R [id number] Date(s): 12/21/20 - 02/07/21 [facility] [address] [place] [address]- Attending Physician: Zion Almeida Admitting Physician: Zion [...] 12:58:17 EDT, Aerosol, Route to Pharmacy Electronically, [id number], [facility]/pharmacy #[id number] Start Date: 06/20/19 Stop Date: 06/27/19 Status: Ordered amLODIPine 5 mg oral tablet 5 mg, 1, tablet, By Mouth, Daily, # 30 tablet, Refills 3, Tot. Refills 3, Maintenance, 07/16/20 13:50:00 EST, Route to Pharmacy Electronically, [facility]/pharmacy #[id number], Partial fill upon patient request, 173, cm, 06/08/20 10:54:00 EDT, Height, 97, kg, 0... Start Date: 07/16/20 Status: Ordered Blood Pressure Monitor Blood Pressure Monitor, See Instructions, # 1 each, Refills 0, Tot. Refills 0, Maintenance, Blood Pressure Monitor Check blood pressure once a day at least one hour after taking medications [id number] PO TID Dx: I15.9 Duration: Lifetime, 11/11... Start Date: 11/11/20 Status: Ordered Colace sodium 100 mg oral capsule 100 mg, 1, capsule, By Mouth, 2 times a day, PRN, # 180 capsule, Refills 0, Tot. Refills 0, Maintenance, for constipation, 07/16/20 15:56:00 EST, Route to Pharmacy Electronically, [facility]/pharmacy #[id number],Partial fill upon patient request, 173, cm, ... Start Date: 07/16/20 Status: Ordered dicyclomine 10 mg oral capsule 1 capsule = 10 mg, By Mouth, 4 times a day, # 56 capsule, 1 Refills, Maintenance, 11/03/20 13:15:00EST, Capsule, [facility]/pharmacy #[id number], Partial fill upon patient request, 173, cm, 11/03/20 12:57:00 EST, Height, 97, kg, 03/29/20 18:07:00 EDT, Dry Weight Start Date: 11/03/20 Stop Date: 12/01/20 Status: Ordered famotidine 20 mg oral tablet 20 mg, 1, tablet, By Mouth, Daily, # 90 tablet, Refills 11, Tot. Refills 11, Maintenance, 10/28/20 14:31:00 EST, Route to Pharmacy Electronically, [facility]/pharmacy #[id number], 173, cm, 10/28/20 13:50:00 [...] Maintenance, 11/05/20 17:59:00 EST, Tablet, [facility]/pharmacy #[id number], Partial fill upon patient request if the prescription is for a schedule II opioid drug., 173, cm, 11/05/20 17:02:00 EST,... Start Date: 11/05/20 Status: Ordered Problem List Condition Effective Dates Status Health Status Inform ant Abdominal pain(Confirmed) Active Acne(Confirmed) Active Asthma(Confirmed) Active Intermittent Explosive Disorder(Confirmed) 1 Active Irritable bowel(Confirmed) Active Hepatic cyst, right lobe(Confirmed) 2 01/27/14 [facility] 2Measures 2.4 x 1.9 x 1.7 cm and contains peripheral calcification along its posterior medial aspect Social History Social History Type Response Smoking Status Former smoker, quit more than 30 days ago entered on: 09/21/18 Sex
--- OUTSIDE RECORDS SUMMARY | 2024-06-05 13:28 | XMS_ITS | Continuity of Care Document ---
Author Organization [facility] Address [address] [place] [id number]- Care Team Providers Care Semaphore Operator Name Role Phone Sanjana KAHN, Natalee Rolon Primary Care Physic brian [facility]): 11/05/20 - 12/05/20 [facility] [address] [place] [address]- Allergies, Adverse Reactions, Alerts Substance Reaction Severity [...] 12:58:17 EDT, Aerosol, Route to Pharmacy Electronically, [id number], [id number] Start Date: 06/20/19 Stop Date: 06/27/19 Status: Ordered amLODIPine 5 mg oral tablet 5 mg, 1, tablet, By Mouth, Daily, # 30 tablet, Refills 3, Tot. Refills 3, Maintenance, 07/16/20 13:50:00 EST, Route to Pharmacy Electronically, [facility]/pharmacy #[id number], Partial fill upon patient request, 173, cm, 06/08/20 10:54:00 EDT, Height, 97, kg, 0... Start Date: 07/16/20 Status: Ordered Blood Pressure Monitor Blood Pressure Monitor, See Instructions, # 1 each, Refills 0, Tot. Refills 0, Maintenance, Blood Pressure Monitor Check blood pressure once a day at least one hour after taking medications [id number] PO TID Dx: I15.9 Duration: Lifetime, 11/11... Start Date: 11/11/20 Status: Ordered Colace sodium 100 mg oral capsule 100 mg, 1, capsule, By Mouth, 2 times a day, PRN, # 180 capsule, Refills 0, Tot. Refills 0, Maintenance, for constipation, 07/16/20 15:56:00 EST, Route to Pharmacy Electronically, [facility]/pharmacy #[id number],Partial fill upon patient request, 173, cm, ... Start Date: 07/16/20 Status: Ordered dicyclomine 10 mg oral capsule 1 capsule = 10 mg, By Mouth, 4 times a day, # 56 capsule, 1 Refills, Maintenance, 11/03/20 13:15:00EST, Capsule, [facility]/pharmacy #[id number], Partial fill upon patient request, 173, cm, 11/03/20 12:57:00 EST, Height, 97, kg, 03/29/20 18:07:00 EDT, Dry Weight Start Date: 11/03/20 Stop Date: 12/01/20 Status: Ordered famotidine 20 mg oral tablet 20 mg, 1, tablet, By Mouth, Daily, # 90 tablet, Refills 11, Tot. Refills 11, Maintenance, 10/28/20 14:31:00 EST, Route to Pharmacy Electronically, [facility]/pharmacy #[id number], 173, cm, 10/28/20 13:50:00 EST, Height, 97, kg, 03/29/20 18:07:00 EDT, Dry Weight Start Date: 10/28/20 Stop Date: 10/13/23 Status: Ordered MiraLax oral powder for reconstitution = 17 Gm, By Mouth, Daily, dissolve in water before taking, # 1,530 Gm, 0 Refills, Maintenance, 07/16/20 13:50:00 EST, REC Powder, [facility]/pharmacy #[id number], Partial fill upon patient request, 17 Gm By MouthDaily,Instr:dissolve in water before taking, 173, c... Start Date: 07/16/20 Status: Ordered ondansetron 4 mg oral tablet, disintegrating 1 tablet = 4 mg, By Mouth, Every 8 hours, PRN as needed for nausea/vomiting, # 9 tablet, 0 Refills,Maintenance, 11/03/20 13:15:00 EST, DIS Tablet, [facility]/pharmacy #[id number], 173, cm, 11/03/20 12:57:00 EST,Height, 97, kg, 03/29/20 18:07:00 EDT, Dry Weight Start Date: 11/03/20 Stop Date: 11/06/20 Status: Ordered verapamil 40 mg oral tablet 1 tablet = 40 mg, By Mouth, 3 times a day, # 90 tablet, 1 Refills, Maintenance, 11/05/20 17:59:00 EST, Tablet, [facility]/pharmacy #[id number], Partial fill upon patient [...]
--- OUTSIDE RECORDS SUMMARY | 2024-06-05 13:28 | XMS_ITS | Continuity of Care Document ---
Author Organization [facility] ter Address [address] [place] [address]- Care Team Providers Care Sulky Driver Name Role Phone Zuri Velázquez MD Primary Care Physician [facility]): 04/21/23 - 05/25/[address] [address] Attending Physician: Kanu WONG, Celina Choi [...] 5 Refills, Maintenance, 04/10/23 16:04:00 EDT, Cream, [facility]/pharmacy #[id number], Partial fill upon patient request if the [...] 04/04/23 15:00:00 EDT, Route to Pharmacy Electronically, [facility]/pharmacy #[id number], Partial fill upon pat... Start Date: 04/04/23 [...] Team Personnel Name: Zuri Velázquez MD Position: [facility] Resident Member Role: PCP Address: Address: [address] [place] [address] [place] [address]- Care Team Related Persons Name: NADER CHAVEZ Address: home [address] [place] [address] Name: DIONTE HARRELL Address: home [address] [place] [address] Name: KRISHNA PA Address: home [address] [place] [address]
--- OUTSIDE RECORDS SUMMARY | 2024-06-05 13:29 | XMS_ITS | Continuity of Care Document ---
Author Organization [facility] Address [address] [place] [address]- Care Team Providers Care Mosaic Technician Name Role Phone Sanjana KAHN, Natalee Rolon Primary Care Physic brian [facility] 02/19/21 - 03/21/21 [facility] [address] [place] [address] Allergies, Adverse Reactions, Alerts Substance Reaction [...] 12:58:17 EDT, Aerosol, Route to Pharmacy Electronically, [id number], [id number] Start Date: 06/20/19 Stop Date: 06/27/19 Status: Ordered amLODIPine 5 mg oral tablet 5 mg, 1, tablet, By Mouth, Daily, # 30 tablet, Refills 3, Tot. Refills 3, Maintenance, 07/16/20 13:50:00 EST, Route to Pharmacy Electronically, [facility]/pharmacy #[id number], Partial fill upon patient request, 173, cm, 06/08/20 10:54:00 EDT, Height, 97, kg, 080... Start Date: 07/16/20 Status: Ordered Blood Pressure Monitor Blood Pressure Monitor, See Instructions, # 1 each, Refills 0, Tot. Refills 0, Maintenance, Blood Pressure Monitor Check blood pressure once a day at least one hour after taking medications [id number] PO TID Dx: I15.9 Duration: Lifetime, 11/11... Start Date: 11/11/20 Status: Ordered Colace sodium 100 mg oral capsule 100 mg, 1, capsule, By Mouth, 2 times a day, PRN, # 180 capsule, Refills 0, Tot. Refills 0, Maintenance, for constipation, 07/16/20 15:56:00 EST, Route to Pharmacy Electronically, [facility]/pharmacy #[id number],Partial fill upon patient request, 173, cm, ... Start Date: 07/16/20 Status: Ordered dicyclomine 10 mg oral capsule 1 capsule = 10 mg, By Mouth, 4 times a day, # 56 capsule, 1 Refills, Maintenance, 11/03/20 13:15:00EST, Capsule, [facility]/pharmacy #[id number], Partial fill upon patient request, 173, cm, 11/03/20 12:57:00 EST, Height, 97, kg, 03/29/20 18:07:00 EDT, Dry Weight Start Date: 11/03/20 Stop Date: 12/01/20 Status: Ordered famotidine 20 mg oral tablet 20 mg, 1, tablet, By Mouth, Daily, # 90 tablet, Refills 11, Tot. Refills 11, Maintenance, 10/28/20 14:31:00 EST, Route to Pharmacy Electronically, [facility]/pharmacy #[id number], 173, cm, 10/28/20 13:50:00 EST, Height, 97, kg, 03/29/20 18:07:00 EDT, Dry Weight Start Date: 10/28/20 Stop Date: 10/13/23 Status: Ordered MiraLax oral powder for reconstitution = 17 Gm, By Mouth, Daily, dissolve in water before taking, # 1,530 Gm, 0 Refills, Maintenance, 07/16/20 13:50:00 EST, REC Powder, [facility]/pharmacy #[id number], Partial fill upon patient request, 17 Gm By MouthDaily,Instr:dissolve in water before taking, 173, c... Start Date: 07/16/20 Status: Ordered ondansetron 4 mg oral tablet, disintegrating 1 tablet = 4 mg, By Mouth, Every 8 hours, PRN as needed for nausea/vomiting, # 9 tablet, 0 Refills,Maintenance, 11/03/20 13:15:00 EST, DIS Tablet, [facility]/pharmacy #[id number], 173, cm, 11/03/20 12:57:00 EST,Height, 97, kg, 03/29/20 18:07:00 EDT, Dry Weight Start Date: 11/03/20 Stop Date: 11/06/20 Status: Ordered verapamil 40 mg oral tablet 1 tablet = 40 mg, By Mouth, 3 times a day, # 90 tablet, 1 Refills, Maintenance, 11/05/20 17:59:00 EST, Tablet, [facility]/pharmacy #[id number], Partial fill upon patient request if the prescription is for a schedule II opioid drug., 173, cm, 11/05/20 17:02:00 EST,... Start Date: 11/05/20 Status: Ordered Problem List Condition Effective Dates Status Health Status Inform ant Abdominal pain(Confirmed) Active Acne(Confirmed) Active Asthma(Confirmed) Active Intermittent Explosive Disorder(Confirmed) 1 Active Irritable bowel(Confirmed) Active Hepatic cyst, right lobe(Confirmed) 2 01/27/14 [facility] 2Measures 2.4 x 1.9 x 1.7 cm and contains peripheral calcification along its posterior medial aspect Social History Social History Type Response Smoking Status Former smoker, quit more than 30 days ago entered on: 09/21/18 Sex
== END 2024-06-05 14:43 | disposition home or self-care (01) ==
LOC: HO.HUSH 13:21
PROVIDERS: Visit Provider Urology
DX: N50.819 Testicular pain, unspecified (principal); G89.29 Other chronic pain; N48.1 Balanitis
CPT/HCPCS: 99213

== ENCOUNTER → 2024-06-05 13:21 | Outpatient (BNVA) | payer OTHER, SELFPAY | PROVIDERS: Visit Provider Urology ==

== ENCOUNTER → 2024-09-20 08:25 | Outpatient (BNVA) | payer OTHER, SELFPAY | PROVIDERS: Visit Provider Urology | DX: N50.819 Testicular pain, unspecified (principal); N48.1 Balanitis; N45.2 Orchitis | CPT/HCPCS: 51798; 81003; 99212 ==

== ENCOUNTER 2024-10-10 12:55 | Outpatient (REF) | payer OTHER, SELFPAY ==
--- NOTE | ~2024-10-10 | US_ITS ---
CLINICAL HISTORY: N50.819 - Testicular pain, unspecified US Scrotum with Doppler Comparison: None Findings: Right testicle normal size and echotexture, 5.5 x 2.0 x 3.2 cm. Left testicle normal size and echotexture, 5.2 x 2.3 x 3.2 cm. Color Doppler and arterial/venous spectral tracings of both testicles within normal limits. Mild increased vascularity involving the left epididymis. No varicoceles. No hydroceles. IMPRESSION: The testicles are normal. There is the suggestion of very mild increased vascularity involving the left epididymal tail. Mild epididymitis possible. This document has been electronically signed by: Rafi Becker MD on 10/11/2024 06:13:56
--- OUTSIDE RECORDS SUMMARY | 2024-10-10 13:00 | XMS_ITS | Data Portability ---
Author Organization [facility] [address] Address [address] [place] [address] Care Team Providers Care Staff Counselor Name Role Phone [facility] Primary Care Provider Assessment No assessment recorded. Plan of Treatment Reminders Order Date Submit Date Provider Last Modified By Organization Details Last Modified Time Details Appointments None record ed. Lab None record ed. Referral None record ed. Procedures None record ed. Surgeries None record ed. Imaging None record ed. Medication Orders None record ed. Patient TargetsNo targets recorded. Patient Instructions Encounter Date Encounter Id Patient Instructions Last Modified By Organization Details Last Modified Time 05/04/2023 [id number] testicular pain: care instructions [email or web address] Not available 05/04/2023 13:54:46 05/19/2024 [id number] As we discussed your symptoms are concerned for serious pathology including testicular torsion which mean you could lost the testicle. Also concerns with your abdominal pain and you will likely need labs and imaging which we can not do here. Please proceed as we discussed to [facility] ED we have contacted them and they will be expecting you. We understand you are refusing EMS transportation at this time. Alan [email or web address] [email or web address] Not available 05/19/2024 13:12:07 Reason for Referral None Reported. Problems Name Problem SNOMED Code Status Onset Date Resolution Date Notes Provider Name and Address Organization Details Recorded Time Migraine 19248198 Active DAVID Pedraza [facility] 3 13:22:02 Hypertensiv e disorder 11340177 Active DAVID Pedraza [facility] 3 13:22:13 Asthma 905683309 Active 2023 DAVID Tsang [address] [place], [address], [place] - [facility] 4 13:03:14 Problem Notes None recorded. Medical Equipment None Reported. Allergies No known drug allergies Medications Name Sig Start Date Stop Date Status Note LastModified by Organization Details LastModified Time cyclobenzap rine 10 mg tablet TAKE 1 TABLET BY MOUTH 3 TIMES A DAY NEEDED FOR SPASM 05/04 completed Not Available Not Available Not Available acetaminoph en 325 mg tablet TAKE 2 TABLETS BY MOUTH EVERY 4 HOURS NEEDED FOR PAIN OR FEVER FOR 7 DAYS. MAX 10 TABS/24 HRS 05/04 completed Not Available Not Available Not Available carvedilol 6.25 mg tablet TAKE 1 TABLET BY MOUTH TWICE A DAY active Not Available Not Available No t Available doxycycline hyclate 100 mg capsule TAKE 1 CAPSULE BY MOUTH TWICE A DAY FOR 10 DAYS 05/04 completed Not Available Not Available Not Available naproxen 375 mg tablet TAKE 1 TABLET BY MOUTH TWICE A DAY FOR PAIN active Not Available Not Available No t Available loperamide 2 mg capsule TAKE 1 CAPSULE BY MOUTH EVERY 4 HOURS NEEDED FOR LOOSE STOOL FOR 7 DAYS. MAX 8 CAPS/DAY 05/04 completed Not Available Not Available Not Available sumatriptan 25 mg tablet TAKE 1 TAB BY MOUTH DAILY NEEDED FOR MIGRAINE MAY REPEAT DOSE AFTER 2 HOURS UP TO A MAX 2 active Not Available Not Available No t Available ondansetron HCl 4 mg tablet TAKE 1 TABLET BY MOUTH EVERY 8 HOURS, FOR 5 DAYS 05/19 completed Not Available Not Available Not Available prednisone 20 mg tablet TAKE 1 TABLET BY MOUTH EVERY DAY FOR 5 DAYS 05/19 completed Not Available Not Available Not Available propranolol ER 60 mg capsule,24 hr,extended release TAKE 1 CAPSULE BY MOUTH EVERY DAY active Not Available Not Available No t Available sulfamethox azole 800 mg-trimetho prim 160 mg tablet TAKE 1 TABLET BY MOUTH TWICE A DAY FOR 10 DAYS 05/19 completed Not Available Not Available Not Available acetaminoph en 500 mg tablet 05/04 completed Not Available Not Available Not Available nortriptyli ne 25 mg capsule 1 CAPSULE BY MOUTH DAILY AT BEDTIME,D OSE INCREASED , TAKE DAILY FOR MIGRAINE PREVENTIO N active Not Available Not Available No t Available meloxicam 7.5 mg tablet TAKE 1 TABLET BY MOUTH EVERY DAY WITH FOOD NEEDED FOR PAIN active Not Available Not Available No t Available pantoprazol e 40 mg tablet,kervin yed release TAKE 1 TABLET BY MOUTH DAILY 30-60 MINUTES BEFORE BREAKFAST active Not Available Not Available No t Available nortriptyli ne 10 mg capsule TAKE 1 CAPSULE BY MOUTH AT BEDTIME active Not Available Not Available No t Available capsaicin 0.025 % topical cream APPLY TO AFFECTED AREA TWICE A DAY 05/04 completed Not Available Not Available Not Available doxycycline hyclate 100 mg tablet TAKE 1 TABLET BY MOUTH TWICE A DAY FOR 14 DAYS 05/19 completed Not Available Not Available Not Available ipratropium bromide 21 mcg (0.03 %) nasal spray USE 1 SPRAY IN EACH NOSTRIL TWICE A DAY NEEDED NASAL CONGESTIO N active Not Available Not Available No t Available nortriptyli ne 50 mg capsule TAKE 1 CAPSULE BY MOUTH AT BEDTIME FOR MIGRAINE PREVENTIO N active Not Available Not Available No t Available clindamycin phosphate 1 % topical solution APPLY TO AFFECTED AREA TWICE A DAY FOR 14 DAYS 05/04 completed Not Available Not Available Not Available azithromyci n 500 mg tablet TAKE 4 TABLETS BY MOUTH ONCE 05/19 completed Not Available Not Available Not Available cyclobenzap rine 5 mg tablet TAKE 1 TABLET BY MOUTH THREE TIMES A DAY FOR 7 DAYS 05/19 completed Not Available Not Available Not Available Symbicort 80 mcg-4.5 mcg/actuati on HFA aerosol inhaler INHALE 2 PUFFS TWICE A DAY active Not Available Not Available No t Available butalbital- acetaminoph en-caffeine 50 mg-300 mg-40 mg capsule TAKE 1 CAPSULE BY MOUTH TWICE DAILY FOR 3 DAYS NEEDED active Not Available Not Available No t Available Vitals Date Recorded Body height Body mass index (BMI) Body weight Respiratory rate Pain severity - 0-10 verbal numeric rating [Score] - Reported Oxygen saturation Oxygen saturation in Arterial blood by Pulse oximetry Heart rate Body temperature Systolic blood pressure Diastolic blood pressure Provider Name and Address Organization Details Last Updated DateTime 3 172.72 cm 32.5 kg/m2 91256.7 7 g 18 /min 7 98 % 98 % 84 /min 99.1 [degF] 138 mm[Hg] 79 mm[Hg] GLORIA LUND RA [place] - [facility] 3 13:24:26 Date Recorded Body height Body mass index (BMI) Body weight Pain severity - 0-10 verbal numeric rating [Score] - Reported Oxygen saturation Oxygen saturation in Arterial blood by Pulse oximetry Heart rate Systolic blood pressure Diastolic blood pressure Provider Name and Address Organization Details Last Updated DateTime 4 172.72 cm 32.8 kg/m2 90525.9 5 g 6 99 % 99 % 90 /min 170 mm[Hg] 81 mm[Hg] Neha HERNANDEZ - [facility] 4 12:53:51 Social History Question Answer Notes LastModified by Context Labsizat ion Details LastModified Time Tobacco Smoking Status Never Smoker DAVID Pedraza - [facility] 05/04/2023 13:22:48 What Is Your Level Of Alcohol Consumption? None Information not available 05/04/2023 Do You Use Any Illicit Or Recreational Drugs? No Information not available 05/04/2023 Have You Recently Traveled Abroad? No Information not available 05/04/2023 Do You Or Have You Ever Used Any Other Forms Of Tobacco Or Nicotine? No Information not available 05/04/2023 Sex: Unknown Functional Status None recorded. Mental Status None recorded. Family History Relationship Description Onset Age of this Age Resolved Age Notes LastModified by Organization Details LastModified Time Father No current problems or disability Not available 13:22:35 Mother No current problems or disability Not available 13:22:35 Medical History No medical history recorded. Past Encounters Encounter ID Performer Location Encounter Start Date Encounter Closed Date Diagnosis/Indication Diagnosis SNOMED-CT Code Diagnosis ICD10 Code Diagnosis Note [id number] [address] [place] [address] 09/19/2020 14:39:27 09/19/2020 15:58:39 [id number] [address] [place] [address] 03/29/2020 17:16:55 03/29/2020 17:35:41 [id number] [place] [address] [facility] [address] [place] [address] 05/04/2023 12:09:05 05/04/2023 13:58:09 Pain of right testicle [id number] N50.811 You have an appointmen t with urology , please ask to be seen today. otherwise. go to the Emergency room for an ultrasound , evaluation and management We are limited in our diagnostic capabiliti es in our center and feel that it would be best to go to the Emergency Room if you are unable to be seen by your urologist today or tomorrow. Based on your presentati on it would be best to have access to lab work and advanced imaging, if the physician would feel that would be indicated based on your History and Presentati on. These things are typically necessary to give you an accurate diagnosis to what is causing your pain. testicular conditions do have the risk of having significan t complicati ons if not diagnosed and treated appropriat jaja. Call your doctor now or seek immediate medical care if: You have severe or increasing pain. You notice a change in how your testicles look or are positioned in your scrotum. You notice new or worse swelling in your scrotum. You have symptoms of a urinary problem, such as a urinary tract infection. These may include: Pain or burning when you urinate. A frequent need to urinate without being able to pass much urine. Pain in the flank, which is just below the rib cage and above the waist on either side of the back. Blood in your urine. A fever. [id number] DAVID Cabrera [address] [facility] [address] [place] [address] 05/19/2024 12:38:45 05/19/2024 13:15:38 Bilateral testicular pain [id number] 2300048 N50.811 Left lower quadrant pain 259122830 R10.32 Health Concerns Section Related Observation LastModified by Organization Detai ls LastModified Time None Recorded Concern Status LastModified by Organization Details LastModified Time None Recorded Advance Directives Directive None Recorded Payers Encounter Date Sequence Insurance Name Policy Number Policy Cantu Covered Member ID Cantu Member ID Guarantor Name 03/29/2020 1 [facility] (MEDICAID REPLACEMENT - HMO) [id number] Chris E Adelaida [id number] Chris E Adelaida 09/19/2020 1 [facility] (MEDICAID REPLACEMENT - HMO) [id number] Chris E Adelaida [id number] Chris E Adeladia 05/04/2023 1 [facility] (MEDICAID REPLACEMENT - HMO) [id number] Chris Adelaida [id number] Chris E Adelaida 05/19/2024 2 [place] [facility] Chris E Adelaida [id number] Chris E Adelaida 05/19/2024 [facility] [id number] Chris E E Adelaida [id number] Chris Son Notes Date Note Type Note Provider Name and Address Organization Details Recorded Time 05/04/20 23 text/htm l Urinary Problems-MaleReported bypatient.source of patient informationInformation obtained from patient; Patient arrived at Urgent Care ambulatory Location:scrotum Quality:dull;aching;swelli ng Severity:moderate; pain level 6/10 Duration:symptoms lasting over 2 weeks Onset/Timing:worse Context:1 partners in last year; heterosexual Associated Symptoms:no penile lesions/sores; no scrotal lesions/sores; no penile discharge; no flank pain; no jaundice; no blood in the urine; no change in urine appearance; no urine odor; no pain during urination; no impotence; no fever/chills; no fatigue; no myalgiaGenital Lesions (male)Reported bypatient.Notes:Patient presents with pain is his right testicle . has been present for a while sometimes worse, other times better. Has been evaluated by his PCP who referred him to a urologist , appointment scheduled for later this month. Patient states he came to to get help finding a sooner appointment . he is advised that we do not have any way of influencing the outside specialty . Leslie Pat NP [address] [place], [address], [place] - [facility] 05/04/2023 16:07:41 05/19/20 24 text/htm l Urinary Problems-MaleReported bypatient.source of patient informationInformation obtained from patient; Patient arrived at Urgent Care ambulatory Quality:dull;aching Severity:moderate Onset/Timing:gradual Context:sexually active Modifying Factors:nothing gives relief Associated Symptoms:no penile lesions/sores; no scrotal lesions/sores; no penile discharge; no blood in the urine; no urinary symptoms, also have left lower quadrant pain DAVID Tsang [facility], [address], [place] - [facility] 05/19/2024 13:14:23
== END 2024-10-10 12:56 | disposition home or self-care (01) ==
LOC: HO.HMGCX 12:55
PROVIDERS: Visit Provider Urology
DX: N50.819 Testicular pain, unspecified (principal)
CPT/HCPCS: 76870

== ENCOUNTER → 2024-10-10 12:58 | Outpatient (BNV) | payer OTHER, SELFPAY | PROVIDERS: Visit Provider Radiology Vascular & Interventional Radiology | DX: N50.811 Right testicular pain (principal); N50.812 Left testicular pain | CPT/HCPCS: 76870; 93976 ==

== ENCOUNTER 2025-02-24 08:21 | Outpatient (AMB) | payer OTHER, SELFPAY ==
--- NOTE | 2025-02-24 08:21 | A.OFFVIS_ITS ---
Intake Visit Reasons: Phone appointment Intake Note: Patient is present via telehealth for follow up Urology Med:None Antibiotic Allergy:None Blood Thinner: None Allergies No Known Allergies Allergy (Verified 02/24/25 08:21) Medication List - Last Reconciled 02/24/25 by Rosario Mensah MD acetaminophen mg PO olmesartan-hydrochlorothiazide 40-12.5 mg 1 tab PO DAILY topiramate mg PO HPI Comments Details: 02/24/25- History of Present Illness - The patient is a 29-year-old male presenting with complaits of scrotal erythema and urethral discharge. - He has a history of chronic testicular pain and reports scrotal redness and purulent urethral discharge for 1 to 2 weeks. - The patient admits to unprotected sexual intercourse and denies dysuria. Results - Testicular ultrasound (October 10, 2024): Testes Normal Discussion Notes I discussed with the patient the need to leave a urine specimen at the lab for culture and testing for chlamydia and gonorrhea. We will initiate treatment with doxycycline 100 mg twice daily for 10 days after obtaining the urine specimen. The patient was advised to pick out hand the medication this afternoon. 09/20/24--Chris is a 29-year-old gentleman with chronic testicular pain. He is here stating that he has had recurrence of bilateral testicular pain and swelling. He also has some itching around the penis. He states that he has had some abdominal pain and loose stools for about 2 days. Examination abdomen is soft nondistended, foreskin on the penis can be retracted there is mild erythema, testicles are tender on palpation no significant swelling no cellulitis on the scrotum. Urinalysis negative leukocytes negative blood. Bladder scan PVR 48 mL. I have discussed empirically trial of Cipro 500 mg twice a day for 10 days and we will prescribe Lotrisone cream to apply to the foreskin. Ultrasound scrotum ordered. Follow-up in 3 weeks to re-evaluate symptoms. 06/05/2024--Kalyani has been seen due to chronic testicular pain. He currently denies testicular pain, but states that he has noticed some itching around the top of the penis. I will send an antifungal cream as well as Diflucan. The patient will call if symptoms do not improve. [facility] Medical History Hepatic cyst Asthma Acne Abdominal pain Surgical History No pertinent past surgical history Family History Father Diabetes Mother HTN (hypertension) Social History Alcohol intake: current Alcohol intake frequency: does not drink Patient Tobacco Use Status: Never used Tobacco Review of Systems Const All systems reviewed & are unremarkable except as noted in HPI and below Reports no additional complaints Eyes Reports no additional complaints ENT Reports no additional complaints Card Reports no additional complaints Resp Reports no additional complaints GI Reports no additional complaints Reports as per HPI Musc Reports no additional complaints Skin/Breast Reports system reviewed and no additional complaints, except as documented Neuro Reports no additional complaints Psych Reports no additional complaints Endo Reports no additional complaints Syd/Lymph Reports no additional complaints Aller/Immun Reports no additional complaints Telehealth Telehealth Telehealth Platform: Telephone Location of provider rendering services: practice address Location of patient: address on file Patient Identification confirmed using: Name, : Yes Telehealth method: voice only Patient verbally consented to treatment: Yes Patient verbally consented to billing insurance company: Yes Patient informed of any privacy concerns related to visit: Yes Minutes spent on Phone/Video with Pt.: 14 Results Reviewed Results Reviewed: Date of Service: 10/10/24 CLINICAL HISTORY: N50.819 - Testicular pain, unspecified US Scrotum with Doppler Comparison: None Findings: Right testicle normal size and echotexture, 5.5 x 2.0 x 3.2 cm. Left testicle normal size and echotexture, 5.2 x 2.3 x 3.2 cm. Color Doppler and arterial/venous spectral tracings of both testicles within normal limits. Mild increased vascularity involving the left epididymis. No varicoceles. No hydroceles. IMPRESSION: The testicles are normal. There is the suggestion of very mild increased vascularity involving the left epididymal tail. Mild epididymitis possible. Assessment & Plan Assessment & Plan (1) Chronic pain in testicle: Code(s): N50.819 - Testicular pain, unspecified; G89.29 - Other chronic pain Category: Medical (2) Urethritis: Code(s): N34.2 - Other urethritis Category: Medical Plan Plan - Obtain a urine specimen for culture and testing for chlamydia and gonorrhea. - Prescribe doxycycline 100 mg twice daily for 10 days, to be started after the urine specimen is obtained. - The patient is advised to pick out hand the medication this afternoon. Patient Instructions: The patient had an opportunity to ask questions regarding treatment plan. The patient expressed understanding and agreement with the above treatment plan. The patient is aware they should contact our office by phone for worsening of their current condition or the appearance of new symptoms. Compliance is encouraged with any medications and followup testing that is ordered. It is a privilege to be allowed the opportunity to participate in the urologic care of your patient. If you have any questions or concerns regarding treatment for the above conditions please do not hesitate to contact me. The office telephone contact is [phone]. This note is constructed in part using voice recognition software. While every effort has been made to ensure accuracy counter person errors may have been included. Yours sincerely, Rosario Mensah MD Scribe Plan - Not visible on output: Patient was informed and verbally consented to the use of an ambient scribe for clinic note documentation during this visit. Coding Level of Care Code Tele Est Pt Level 4 (81659) Diagnoses Chronic pain in testicle N50.819; G89.29 Urethritis N34.2
--- OUTSIDE RECORDS SUMMARY | 2025-02-24 08:27 | XMS_ITS | Data Portability ---
Author Organization DAVID Stephens [facility]il[facility] [address] Address [address] [place] [address] Care Team Providers Care [employer] Executive Director Name Role Phone [facility] Primary Care Provider Assessment No assessment recorded. [...] By Organization Details Last Modified Time 05/04/2023 [id number] testicular pain: care instructions [email or web address] Not available 05/04/2023 13:54:46 05/19/2024 [id number] As we discussed your symptoms are concerned for serious pathology including testicular torsion which mean you could lost the testicle. Also concerns with your abdominal pain and you will likely need labs and imaging which we can not do here. Please proceed as we discussed to [facility] ED we have contacted them and they will be expecting you. We understand you are refusing EMS transportation at this time. Alan salas [email or web address] Not available 05/19/2024 13:12:07 Reason for Referral None Reported. Problems Name Problem SNOMED Code Status Onset Date Resolution Date Notes Provider Name and Address Organization Details Recorded Time Migraine 88786356 Active DAVID Pedraza [facility] 3 13:22:02 Hypertensiv e disorder 93902317 Active DAVID Pedraza [facility] 3 13:22:13 Asthma 457162423 Active 2023 DAVID [place], [address], [place] - [facility] 4 13:03:14 Problem Notes None recorded. [...] mass index (BMI) Body weight Respiratory rate Oxygen saturation Oxygen saturation in Arterial blood by Pulse oximetry Heart rate Body temperature Systolic blood pressure Diastolic blood pressure Provider Name and Address Organization Details Last Updated DateTime 3 172.72 cm 32.5 kg/m2 65477.7 7 g 18 /min 98 % 98 % 84 /min 99.1 [degF] 138 mm[Hg] 79 mm[Hg] GLORIA LUND RA [place] - [facility] 3 13:24:26 Date Recorded Body height Body mass index (BMI) Body weight Oxygen saturation Oxygen saturation in Arterial blood by Pulse oximetry Heart rate Systolic blood pressure Diastolic blood pressure Provider Name and Address Organization Details Last Updated DateTime 4 172.72 cm 32.8 kg/m2 93554.9 5 g 99 % 99 % 90 /min 170 mm[Hg] 81 mm[Hg] Neha Chavez [place] - [facility] 4 12:53:51 Social History Question Answer Notes LastModified by NextMedium Details LastModified Time Tobacco Smoking Status Never Smoker DAVID Pedraza - [facility] 05/04/2023 13:22:48 Have You Recently Traveled Abroad? No Information not available 05/04/2023 Sex: Unknown Functional Status Question Answer Note LastModified by NextMedium Details LastModified Time Do you use any illicit or recreational drugs? No Information not available 05/04/2023 Do you or have you ever used any other forms of tobacco or nicotine? No Information not available 05/04/2023 What is your level of alcohol consumption? None Information not available 05/04/2023 Mental Status None recorded. Family History Relationship [...] SNOMED-CT Code Diagnosis ICD10 Code Diagnosis Note [id number] [address] [place] [address] 09/19/2020 14:39:27 09/19/2020 15:58:39 [id number] [address] [place] [address] 03/29/2020 17:16:55 03/29/2020 17:35:41 [id number] Leslie PatJUDITH [address] [facility] [address] [place] [address] 05/04/2023 12:09:05 05/04/2023 13:58:09 Pain of right testicle 7555224789 0436336 N50.811 You have an appointmen t with [...] back. Blood in your urine. A fever. [id number] DAVID Cabrera [address] [facility] [address] [place] [address] 05/19/2024 12:38:45 05/19/2024 13:15:38 Bilateral testicular pain [id number] 4294371 N50.811 Left lower quadrant pain [id number] R10.32 Health Concerns Section Related Observation LastModified by Organization Detai ls LastModified Time None Recorded Concern Status LastModified by Organization Details LastModified Time None Recorded Advance Directives Directive None Recorded Payers Insurance Date Sequence Insurance Name Policy Number Policy Cantu Covered Member ID Cantu Member ID Guarantor Name 05/19/2024 1 [facility] Chris E Adelaida [id number] Chris E Adelaida 05/19/2024 1 [facility] (MEDICAID REPLACEMENT - HMO) Chris Coker Adelaida [id number] Chris E Adelaida 05/19/2024 2 [place] [facility] Chris E Adelaida [id number] Chris E Adelaida 05/19/2024 1 [facility] [id number] Chris E E Adelaida [id number] Chris E Adelaida 05/19/2024 1 [facility] (MEDICAID REPLACEMENT - HMO) [id number] Chris Adelaida [id number] Chris E Adelaida 05/19/2024 1 [facility] (MEDICAID REPLACEMENT - HMO) [id number] Chris E Adelaida [id number] Chris E Adelaida Notes Date Note Type Note Provider Name [...] Leslie Pat NP [address] [place], [address], [place] - [facility] 05/04/2023 16:07:41 05/19/20 24 text/htm l Urinary Problems-MaleReported bypatient.source of patient informationInformation obtained from patient; Patient arrived at Urgent Care ambulatory Quality:dull;aching Severity:moderate Onset/Timing:gradual Context:sexually active Modifying Factors:nothing gives relief Associated Symptoms:no penile lesions/sores; no scrotal lesions/sores; no penile discharge; no blood in the urine; no urinary symptoms, also have left lower quadrant pain DAVID Tsang [facility] [place], [address], [place] - [facility] 05/19/2024 13:14:23
== END 2025-02-24 16:48 | disposition home or self-care (01) ==
LOC: HO.HUSH 08:21
PROVIDERS: Visit Provider Urology
DX: N50.819 Testicular pain, unspecified (principal); G89.29 Other chronic pain; N34.2 Other urethritis
CPT/HCPCS: 99214

== ENCOUNTER 2025-05-12 09:54 | Outpatient (AMB) | payer OTHER, SELFPAY ==
--- NOTE | 2025-05-12 10:00 | MHC.OFFVIS ---
Intake Visit Reasons: Scrotum pain Intake Note: Patient is present for follow up on scrotum pain Urology Med:None Antibiotic Allergy:None Blood Thinner: None Allergies No Known Allergies Allergy (Verified 05/12/25 10:01) HPI Comments Details: 05/12/25--Chris is followed for chronic testicular pain and balanitis. History of Present Illness The patient is a 30-year-old male presenting with chronic testicular pain and recurrent balanitis. The testicular pain is bilateral and has been persistent approximately four weeks ago. The patient reports no urethral discharge, and urination is normal. The patient has been experiencing recurrent balanitis, characterized by redness and discomfort of the foreskin. The patient has been with the same partner for eight years and reports no infections in the partner. Previous treatments included antibiotics and antifungal cream, which the patient is requesting again. Examination: Patient is able to retract the foreskin without difficulty there is minimal erythema below the majano, there is no scrotal swelling or cellulitis. Testicles are mildly tender to palpation Plan 1. Chronic Testicular Pain - Prescribed doxycycline 100 mg twice a day for 7 days 2. Recurrent Balanitis - Prescribed Lotrisone cream for application to the penile glans and foreskin - Follow-up recommended in one year or as needed 02/24/25- History of Present Illness - The patient is a 29-year-old male presenting with complaits of scrotal erythema and urethral discharge. - He has a history of chronic testicular pain and reports scrotal redness and purulent urethral discharge for 1 to 2 weeks. - The patient admits to unprotected sexual intercourse and denies dysuria. Results - Testicular ultrasound (October 10, 2024): Testes Normal Discussion Notes I discussed with the patient the need to leave a urine specimen at the lab for culture and testing for chlamydia and gonorrhea. We will initiate treatment with doxycycline 100 mg twice daily for 10 days after obtaining the urine specimen. The patient was advised to mushroom picker the medication this afternoon. 09/20/24--Chris is a 29-year-old gentleman with chronic testicular pain. He is here stating that he has had recurrence of bilateral testicular pain and swelling. He also has some itching around the penis. He states that he has had some abdominal pain and loose stools for about 2 days. Examination abdomen is soft nondistended, foreskin on the penis can be retracted there is mild erythema, testicles are tender on palpation no significant swelling no cellulitis on the scrotum. Urinalysis negative leukocytes negative blood. Bladder scan PVR 48 mL. I have discussed empirically trial of Cipro 500 mg twice a day for 10 days and we will prescribe Lotrisone cream to apply to the foreskin. Ultrasound scrotum ordered. Follow-up in 3 weeks to re-evaluate symptoms. 06/05/2024--Kalyani has been seen due to chronic testicular pain. He currently denies testicular pain, but states that he has noticed some itching around the top of the penis. I will send an antifungal cream as well as Diflucan. The patient will call if symptoms do not improve. [facility] Medical History Hepatic cyst Asthma Acne Abdominal pain Surgical History No pertinent past surgical history Family History Father Diabetes Mother HTN (hypertension) Social History Alcohol intake: current Alcohol intake frequency: does not drink Patient Tobacco Use Status: Never used Tobacco Review of Systems Const All systems reviewed & are unremarkable except as noted in HPI and below Reports no additional complaints Eyes Reports no additional complaints ENT Reports no additional complaints Card Reports no additional complaints Resp Reports no additional complaints GI Reports no additional complaints Reports as per HPI Musc Reports no additional complaints Skin/Breast Reports system reviewed and no additional complaints, except as documented Neuro Reports no additional complaints Psych Reports no additional complaints Endo Reports no additional complaints Syd/Lymph Reports no additional complaints Aller/Immun Reports no additional complaints Physical Exam Other: Examination: Patient is able to retract the foreskin without difficulty there is minimal erythema below the majano, there is no scrotal swelling or cellulitis. Testicles are mildly tender to palpation Assessment & Plan Assessment & Plan (1) Chronic pain in testicle: Code(s): N50.819 - Testicular pain, unspecified; G89.29 - Other chronic pain Category: Medical (2) Balanitis: Code(s): N48.1 - Balanitis Category: Medical Plan Plan 1. Chronic Testicular Pain - Prescribed doxycycline 100 mg twice a day for 7 days 2. Recurrent Balanitis - Prescribed Lotrisone cream for application to the penile glans and foreskin - Follow-up recommended in one year or as needed Orders: Orders AMB Urinalysis Automated Today Z13.9 - Encounter for screening, unspecified Patient Instructions: The patient had an opportunity to ask questions regarding treatment plan. The patient expressed understanding and agreement with the above treatment plan. The patient is aware they should contact our office by phone for worsening of their current condition or the appearance of new symptoms. Compliance is encouraged with any medications and followup testing that is ordered. It is a privilege to be allowed the opportunity to participate in the urologic care of your patient. If you have any questions or concerns regarding treatment for the above conditions please do not hesitate to contact me. The office telephone contact is [phone]. This note is constructed in part using voice recognition software. While every effort has been made to ensure accuracy product management manager errors may have been included. Yours sincerely, Rosario Mensah MD Scribe Plan - Not visible on output: Patient was informed and verbally consented to the use of an ambient scribe for clinic note documentation during this visit. Coding Level of Care Code Est Pt Level 4 (72661) Diagnoses Chronic pain in testicle N50.819; G89.29 Balanitis N48.1
== END 2025-05-12 10:38 | disposition home or self-care (01) ==
LOC: HO.HUSH 09:55
PROVIDERS: Visit Provider Urology
DX: N50.819 Testicular pain, unspecified (principal); G89.29 Other chronic pain; N48.1 Balanitis; Z13.9 Encounter for screening, unspecified
CPT/HCPCS: 99214

== ENCOUNTER → 2025-05-12 09:54 | Outpatient (BNVA) | payer OTHER, SELFPAY | PROVIDERS: Visit Provider Urology | DX: N50.811 Right testicular pain (principal); N50.812 Left testicular pain; N48.1 Balanitis; G89.29 Other chronic pain | CPT/HCPCS: 81003; 99212 ==

== ENCOUNTER 2025-08-22 13:55 | Outpatient (AMB) | payer OTHER, SELFPAY ==
--- OUTSIDE RECORDS SUMMARY | 2025-08-17 23:59 | XMS_ITS | Continuity of Care Document ---
Author Organization [facility] Address [address] [place] [address]- Care Team Providers Care Director Occupational Name Role Phone Yehuda Bernal MD Primary Care Physician Encounter [facility] [place] [place] Date(s): 07/17/25 - 08/17/[address] [address] Attending Physician: Vesna Choudhary MD Admitting Physician: Vesna Choudhary MD Referring Physician: Yehuda Bernal MD Encounter Type: Pre-OutPatient One Time Allergies, Adverse Reactions, Alerts Substance Criticality Severity Reaction Reaction Severity Status verapamil 1 Active Seafood 2 Active 1as of stated he used this and then got dizzy, no longer taking 2per labs 2010 0 lobster; pt stated gets itchy mouth if eats certain seafood - including Shrimp, crabs, lobster Immunizations Given and Recorded Vaccine Date Status [...] Dx: Hypertension ICD I10 Duration: Lifetime, 10/09/23 4:41:00 PM EST, Supply Start Date: 10/09/23 Status: Ordered Medication Dispense Status: Completed Quantity: 1.0 Unit: each Total Allowed Fills: 1 Fills Dispensed: 0 CPAP Machine AutoCPAP 8-20, # 1 each, Maintenance, 04/21/25 9:00:00 AM EDT, Supply Start Date: 04/21/25 Status: Ordered Medication Dispense Status: Completed Quantity: 1.0 Unit: each Total Allowed Fills: 1 Fills Dispensed: 0 Indications: Nasal congestion; Obstructive sleep apnea (adult) (pediatric); GenTeal ophthalmic solution 1 drops, Eyes, Both, 2 times a day, PRN for dry eyes, # 30 mL, 11 Refills, Maintenance, 06/03/25 4:43:00 PM EDT, Solution, [id number], Partial fill upon patient request if the prescription is for a schedule II opioid drug., 1 drops Eyes, Both 2 times a day,PRN:for dry eyes, 173, cm, 06/03/2516:03:00 EDT, Height Start Date: 06/03/25 Status: Ordered Medication Dispense Status: Completed Quantity: 30.0 Unit: mL Total Allowed Fills: 12 Fills Dispensed: 0 hydrochlorothiazide-olmesartan 12.5 mg-20 mg oral tablet 1 tablet, By Mouth, Daily, # 90 tablet, 3 Refills, Maintenance, 06/11/25 10:56:00 AM EDT, Tablet, [id number], Partial fill upon patient request if the prescription is for a schedule II opioiddrug., 1 tablet By Mouth Daily, 173, cm, 06/11/25 10:38:00 EDT, Height Start Date: 06/11/25 Status: Ordered Medication Dispense Status: Completed Quantity: 90.0 Unit: tablet Total Allowed Fills: 4 Fills Dispensed: 0 Indications: Essential (primary) hypertension; ketoconazole 2% topical shampoo See Instructions, Apply 5-10mL to wet scalp, lather, leave on for 3-5 minutes, and rinse. Reapply twice weekly for 2-4 weeks., # 120 mL, 0 Refills, Soft Stop, 05/21/25 6:48:00 PM EDT, [id number], Partial fill upon patient request if the prescription is for a schedule II opioid drug., Apply 5-10mL to wet scalp, lather, leave on for 3-5 minutes, and rinse. Reapply twice weekly for 2-4 weeks., 173, cm, 05/21/25 17:35:00 EDT, Height Start Date: 05/21/25 Status: Ordered Medication Dispense Status: Completed Quantity: 120.0 Unit: mL Total Allowed Fills: 1 Fills Dispensed: 0 Indications: Seborrheic dermatitis, unspecified; Everson 0.65% nasal spray 2 sprays, Nares, Both, 4 times a day, # 60 mL, 11 Refills, Maintenance, 08/23/24 4:55:00 PM EST, [id number], Partial fill upon patient request if the prescription is for a schedule II opioid drug., 2 sprays Nares, Both 4 times a day, 173, cm, 08/23/24 16:17:00 EST, Height Start Date: 08/23/24 Status: Ordered Medication Dispense Status: Completed Quantity: 60.0 Unit: mL Total Allowed Fills: 12 Fills Dispensed: 0 SUMAtriptan 50 mg oral tablet 1 tablet = 50 mg, By Mouth, Once, PRN as needed for migraine headache, may repeat dose after 2 hours up to a maximum of 200 mg in 24 hours, # 9 tablet, 1 Refills, Soft Stop, 02/05/25 3:08:00 PM EDT, Tablet, [id number], Partial fill upon patient request if the prescription is for a schedule II opioid drug., 173, cm, 02/05/25 14:33:00 EDT, Height Start Date: 02/05/25 Status: Ordered Medication Dispense Status: Completed Quantity: 9.0 Unit: tablet Total Allowed Fills: 2 Fills Dispensed: 0 Symbicort 80mcg/4.5mcg Inhaler 2, puffs, Inhalation, 2 times a day, # 10.2 Gm, Refills 10, Tot. Refills 10, Maintenance, 06/11/25 10:59:00 AM EDT, Aerosol, Route to Pharmacy Electronically, [id number], [id number], 173, cm, 06/11/25 10:38:00 EDT, Height Start Date: 06/11/25 Status: Ordered Medication Dispense Status: Completed Quantity: 10.2 Unit: g Total Allowed Fills: 11 Fills Dispensed: 0 Problem List Condition Confirmation Course Effective Dates Status Health St atus Informant Acne Confirmed Active Allergic rhinitis Confirmed Active Allergy to seafood 1 Confirmed Active Asthma Confirmed Active HTN (hypertension) Confirmed Active Hypertensive retinopathy 2 Confirmed Active Irritable bowel Confirmed Active Hepatic cyst, right lobe 3 Confirmed 01/27/14 Active Migraine with aura Confirmed Active Obese class I Confirmed Active CIERRA (obstructive sleep apnea) Confirmed Active Scrotal pain Confirmed Active 1to lbster per 2010 labs 2per [facility] note 3Measures 2.4 x 1.9 x 1.7 cm and contains peripheral calcification along its posterior medial aspect Social History Social History Type Response Smoking Status Former smoker, quit more than 30 days ago entered on: 09/21/18 Sexual Orientation Self described orien tation: ; Straight or heterosexual Sex Sex Representation Male (finding) Patient Care team information Care Team Personnel Name: Yehuda Bernal MD Position: [facility] Resident Member Role: PCP Address: [address] [place] [address] Telecom: Care Team Related Persons Name: NADER CHAVEZ Name: DIONTE HARRELL Name: KRISHNA PA Insurance Providers Guarantor name: MONIKAVELINA RAYERO [employer] Plan Information #: 1 Payer: [facility] Payer Identifier: NA Member Number: [id number] Group Number: [id number] Subscriber Identifier: [id number] Relationship to Subscriber: self Coverage Type: Medicaid (Managed Care) Coverage Verification Date: NA Telecom: NA Address:
--- OUTSIDE RECORDS SUMMARY | 2025-08-20 23:59 | XMS_ITS | Continuity of Care Document ---
Author Organization [facility] Address [address] [place] [address]- Care Team Providers Care Hospital Cook Name Role Phone Gabe KAHN, Yehuda Primary Care Physician Encounter [facility] Date(s): 07/21/25 - 08/20/[address] [address] Encounter Type: Triage Allergies, Adverse Reactions, Alerts Substance Criticality Severity [...] Refills, Soft Stop, 05/21/25 6:48:00 PM EDT, [facility][id number], Partial fill upon patient request [...] Fills Dispensed: 0 Indications: Seborrheic dermatitis, unspecified; [place] 0.65% nasal spray 2 sprays, Nares, Both, 4 times a day, # 60 mL, 11 Refills, Maintenance, 08/23/24 4:55:00 PM EST, [facility]pharm[facility] #[id number], Partial fill upon patient request [...] Soft Stop, 02/05/25 3:08:00 PM EDT, Tablet, [facility]pharm[facility] #[id number], Partial fill upon patient request [...] AM EDT, Aerosol, Route to Pharmacy Electronically, [id number], [id number], 173, cm, 06/11/25 10:38:00 EDT, [...] Team Personnel Name: Yehuda Bernal MD Position: [facility] Resident Member Role: PCP Address: [address] [place] [address] Telecom: Care Team Related Persons Name: NADER CHAVEZ Name: DIONTE HARRELL Name: KRISHNA PA Insurance Providers Guarantor name: MONIK RAYERO [employer] Plan Information #: 1 Payer: [facility] Payer Identifier: NA Member Number: [id number] Group Number: [id number] Subscriber Identifier: NA Relationship to Subscriber: self Coverage Type: Medicaid (Managed Care) Coverage Verification Date: NA Telecom: NA Address:
--- NOTE | 2025-08-22 13:58 | A.OFFVIS_ITS ---
Intake Visit Reasons: Testicle/Groin Pain/Abdomen Discomfort/PVR/UA(set) Intake Note: Reason for Visit: Testicle/Groin pain/Abdomen Discomfort/UA Urology Meds: None Blood Thinners: None Labs: None Imaging: [facility] Scrotum Ultrasound 11/13/2024 Last PVR: None PVR:0ML Line Palletizer Required: No Allergies No Known Allergies Allergy (Verified 08/22/25 14:13) PFSH Medical History Hepatic cyst Asthma Acne Abdominal pain Surgical History No pertinent past surgical history Family History Father Diabetes Mother HTN (hypertension) Social History Alcohol intake: current Alcohol intake frequency: does not drink Patient Tobacco Use Status: Never used Tobacco Office Procedures Post Void Residual Post Residual Void Post Void Residual (PVR): 0 [id number] Void Residual by ultrasound Results AMB Urinalysis, Automated UA Leukoctes 0 Debbie/uL Last Edit by TRISTIN Moreira on 08/22/25 14:14 UA Nitrite Negative Last Edit by Ronel Bennett Ashlyn on 08/22/25 14:14 UA Urobilinogen 0.2 mg/dL Last Edit by Ronel Bennett [facility] on 08/22/25 14:1 4 UA Protein 15 mg/dL Last Edit by Ronel Bennett [place] on 08/22/25 14:14 UA pH 6.5 Last Edit by Ronel Bennett [facility] on 08/22/25 14:14 UA Blood 0 Juan Miguel/uL Last Edit by TRISTIN Moreira on 08/22/25 14:14 UA Specific [place] 1.015 Last Edit by TRISTIN Moreira on 08/22/25 14: 14 UA Ketone Negative Last Edit by TRISTIN Moreira on 08/22/25 14:14 UA Bilirubin 0 mg/dL Last Edit by Ronel Bennett [facility] on 08/22/25 14:14 UA Glucose 0 mg/dL Last Edit by TRISTIN Moreira on 08/22/25 14:14 Assessment & Plan Assessment & Plan Orders: Orders AMB Urinalysis Automated Today Z13.9 - Encounter for screening, unspecified AMB Post Void Residual by ultrasound Today R35.0 - Frequency of micturition Coding CPT Codes Post Residual Void - PVR CPT Code: [id number]-[id number] Void Residual by ultrasound ([id number])
--- OUTSIDE RECORDS SUMMARY | 2025-08-22 13:58 | XMS_ITS | Clinical Summary ---
Author Organization [facility] Address [address] [place] [address] Phone Care Team Providers Care Film Masker Name Role Phone Yehuda Bernal MD Primary Care Provider [phone] Allergies No known active allergies Medical History Medical History Date Comments Migraines Hypertension Social History Tobacco Use Types Packs/Day Years Used Date Smoking Tobacco: Never Smokeless Tobacco: Never Tobacco Cessation:Counseling Given: Not Answered Alcohol Use Standard Drinks/Week Comments Never 0 (1 standard drink = 0.6 oz pur e alcohol) Sex and Gender Information Value Date Recorded Sex Assigned at Not on file Legal Sex Male 12:19 AM EST Gender Identity Not on file Sexual Orientation Not on file Last Filed Vital Signs Vital Sign Reading Time Taken Comments Blood Pressure 148/79 03/31/2025 8:38 PM EDT Pulse 74 03/31/2025 8:38 PM EDT Temperature 36.9 C (98.4 F) 03/31/2025 8:38 PM EDT Respiratory Rate 16 03/31/2025 8:38 PM EDT Oxygen Saturation 98% 03/31/2025 8:38 PM EDT Inhaled Oxygen Concentration - - Weight 103 kg (228 lb) 03/31/2025 8:38 PM EDT Height 172.7 cm (5' 8 ) 03/31/2025 8:38 PM EDT Body Mass Index 34.67 03/31/2025 8:38 PM EDT Plan of Treatment Health Maintenance Due Date Last Done Comments Hepatitis A Vaccines (1 of 2 - Risk 2-dose series) 2015 Hepatitis B Vaccines (1 of 3 - 19+ 3-dose series) 2015 Pneumococcal Vaccine: Pediatrics (0 to 5 Years) and At-Risk Patients (6 to 49 Years) (1 of 2 - PCV) 2015 Cholesterol Screening (Lipid Panel) 07/31/2022 HIV Screening 07/31/2022 Hepatitis C Screening 07/31/2022 Social Influencers of Health Screening 07/31/2022 HPV Vaccines (1 - 3-dose SCDM series) 2023 Depression Screening 08/28/2024 Hypertension/CHF/CAD Annual BMP Blood Test 04/01/2025 COVID-19 Vaccine ( - season) 2025 Influenza Vaccine (#1) 2025 , 11/01/2019, 07/13/2017, Additional history exists DTaP,Tdap,and Td Vaccines (2 - Td or Tdap) 02/08/2028 02/07/2018 RSV Immunization Adult Patients (1 - 1-dose 75+ series) 2071 HIB Vaccines Aged Out No longer eligi ble based on patient's age to complete this topic IPV Vaccines Aged Out No longer eligi ble based on patient's age to complete this topic MMR Vaccines Aged Out No longer eligi ble based on patient's age to complete this topic Meningococcal ACWY Vaccine Aged Out N o longer eligible based on patient's age to complete this topic Meningococcal B Vaccine Aged Out No l onger eligible based on patient's age to complete this topic RSV Immunization Patients Under 20 months Aged Out No longer eligible based on patient's age to complete this topic Varicella Vaccines Aged Out No longer eligible based on patient's age to complete this topic [place] [address] [place] [address] MEDICAID ADVANTAGE Care Teams Film Masker Relationship Specialty Start Date End Date Yehuda Bernal MD [address] [place] [id number] PCP - General 03/31/25
--- OUTSIDE RECORDS SUMMARY | 2025-08-22 13:58 | XMS_ITS | Data Portability ---
Author Organization [facility] [address] Address [address] [place] [address] Care Team Providers Care Communications Editor Name Role Phone [facility] Primary Care Provider Assessment No assessment [...] By Organization Details Last Modified Time 05/04/2023 [id number] testicular pain: care instructions [email or web address] Not available 05/04/2023 13:54:46 05/19/2024 [id number] As we discussed your symptoms are concerned for serious pathology including testicular torsion which mean you could lost the testicle. Also concerns with your abdominal pain and you will likely need labs and imaging which we can not do here. Please proceed as we discussed to [facility] ED we have contacted them and they will be expecting you. We understand you are refusing EMS transportation at this time. Alan salas [email or web address] Not available 05/19/2024 13:12:07 Reason for Referral None Reported. Problems Name Problem SNOMED Code Status Onset Date Resolution Date Notes Provider Name and Address Organization Details Recorded Time Migraine 03408863 Active DAVID Pedraza [facility] 3 13:22:02 Hypertensiv e disorder 55444823 Active DAVID Pedraza [facility] 3 13:22:13 Asthma 066486581 Active 2023 DAVID [place], [address], [place] - [facility] 4 13:03:14 Problem [...] numeric rating [Score] - Reported Oxygen saturation Heart rate Body temperature Systolic And Diastolic Provider Name and Address Organization Details Last Updated DateTime 3 172.72 cm 32.5 kg/m2 91654.7 7 g 18 /min 7 98 % 84 /min 99.1 [degF] 138/79 mm[Hg] GLORIA LUND RA PA - [facility] 3 13:24:26 Date Recorded Body height Body mass index (BMI) Body weight Pain severity - 0-10 verbal numeric rating [Score] - Reported Oxygen saturation Heart rate Systolic And Diastolic Provider Name and Address Organization Details Last Updated DateTime 4 172.72 cm 32.8 kg/m2 37087.9 5 g 6 99 % 90 /min 170/81 mm[Hg] Neha Chavez PA - [facility] 4 12:53:51 Social History Question Answer Notes LastModified by Return[employer] Details LastModified Time Tobacco Smoking Status Never Smoker DAVID Pedraza - [facility] 05/04/2023 13:22:48 Have You Recently Traveled Abroad? No Information not available 05/04/2023 Sex: Unknown Functional Status Question Answer Note LastModified by [employer] Details LastModified Time Do you use any [...] Diagnosis SNOMED-CT Code Diagnosis ICD10 Code Diagnosis IMO Codes Diagnosis Note [id number] [address] [place] [address] 09/19/2020 14:39:27 09/19/2020 15:58:39 [id number] [address] [place] [address] 03/29/2020 17:16:55 03/29/2020 17:35:41 [id number] Leslie PatJUDITH [address] [facility] [address] [place] [address] 05/04/2023 12:09:05 05/04/2023 13:58:09 Pain of right testicle 8209577394 0719003 N50.811 You have an appointmen t with [...] back. Blood in your urine. A fever. [id number] DAVID Cabrera [address] [facility] [address] [place] [address] 05/19/2024 12:38:45 05/19/2024 13:15:38 Bilateral testicular pain 4167868145 7319252 N50.811 Left lower quadrant pain 122414752 R10.32 Health Concerns Section Related Observation LastModified by Organization Detai ls LastModified Time None Recorded Concern Status LastModified by Organization Details LastModified Time None Recorded Advance Directives Directive None Recorded Payers Insurance Date Sequence Insurance Name Policy Number Policy Cantu Covered Member ID Cantu Member ID Guarantor Name 05/19/2024 1 [facility] Chris E Adelaida [id number] Chris E Adelaida 05/19/2024 1 [facility] (MEDICAID REPLACEMENT - HMO) Chris E Adelaida [id number] Chris E Adelaida 05/19/2024 2 MEDICAID-[place]: [facility] Chris E Adelaida [id number] Chris E Adelaida 05/19/2024 1 [facility] [id number] Chris E E Adelaida [id number] Chris E Adelaida 05/19/2024 1 [facility] (MEDICAID REPLACEMENT - HMO) [id number] Chris Adelaida [id number] Chris E Adelaida 05/19/2024 1 [facility] (MEDICAID REPLACEMENT - HMO) [id number] Chris E Adelaida [id number] Chris E Adelaida Notes Date Note Type Note Provider Name and Address Organization Details Recorded Time 05/04/20 23 text/htm l Genital Lesions (male)Reported by PatientPatient presents with pain is his right testicle [...] way of influencing the outside specialty . Urinary Problems-MaleReported by PatientGU ProblemsFor quality, patient reportsdull,aching, andswelling. For onset/timing, patient reportsworse. For source of patient information, patient reportsinformation obtained from patientandpatient arrived at urgent care ambulatory. For location, patient reportsscrotum. For severity, patient reportsmoderateandpain level 10. For duration, patient reportssymptoms lasting over 2 weeks. For context, patient reports1 partners in last yearandheterosexual. For associated symptoms, patient reportsno penile lesions/sores,no scrotal lesions/sores,no penile discharge,no flank pain,no jaundice,no blood in the urine,no change in urine appearance,no urine odor,no pain during urination,no impotence,no fever/chills,no fatigue, andno myalgia. Lselie Pat NP [address] [place], [address], [place] - [facility] 05/04/2023 16:07:41 05/19/20 24 text/htm l Genital Lesions (male)Reported by Patient Urinary Problems-MaleReported by PatientGU ProblemsFor quality, patient reportsdullandaching. For context, patient reportssexually active. For source of patient information, patient reportsinformation obtained from patientandpatient arrived at urgent care ambulatory. For severity, patient reportsmoderate. For onset/timing, patient reportsgradual. For modifying factors, patient reportsnothing gives relief. For associated symptoms, patient reportsno penile lesions/sores,no scrotal lesions/sores,no penile discharge, andno blood in the urine(no urinary symptoms, also have left lower quadrant pain). DAVID Tsang [address] [place], [address], [place] - [facility] 05/19/2024 13:14:23
== END 2025-08-22 15:47 | disposition left against medical advice (07) ==
LOC: HO.HUSH 13:56
PROVIDERS: Visit Provider Urology
DX: Z13.9 Encounter for screening, unspecified (principal)